=== PATIENT | female | born 1960 | race Caucasian/White ===

== ENCOUNTER 2020-03-10 13:13 | Emergency (ER) | payer OTHER, SELFPAY ==
--- NOTE | 2020-03-10 | XR_ITS ---
EXAMINATION: XR SHOULDER, RIGHT CLINICAL INFORMATION: Fall, trauma, pain COMPARISON: Radiographs right shoulder 03/28/2018 TECHNIQUE: Right shoulder is imaged in 3 views. FINDINGS: There is no acute or healing fracture or dislocation or destructive process. Small calcific tendinosis adjacent to greater tuberosity is again noted, slightly less bulky since 2018. Again, there are degenerative changes acromioclavicular joint with superior spurring from the AC joint and superior lateral spurring from the acromion. The acromioclavicular alignment is normal. There is some mild spurring again noted inferior glenoid likely at origin inferior glenohumeral ligament. No erosive changes. XR/XR shoulder RT min 2V IMPRESSION: 1. No fracture or dislocation. 2. Calcific tendinosis distal superior rotator cuff. 3. Degenerative changes acromioclavicular joint.
--- NOTE | 2020-03-10 | XR_ITS ---
EXAMINATION: XR HAND WRIST, RIGHT CLINICAL INFORMATION: Pain COMPARISON: Radiographs right hand breast 08/10/2018 TECHNIQUE: The right hand and wrist are imaged together in larger [id number] images in 3 views. Navicular view of the wrist is also included for a total of 4 views in this entire exam. FINDINGS: There is no acute or healing fracture, dislocation, destructive process. The ulnar variance is neutral. The carpus shows no focal joint narrowing or erosive change or definite chondrocalcinosis. There is a borderline spur or small exostosis from the lateral distal navicular pole similar to previous exam 2019. The MCP and interphalangeal joints show no interval focal joint narrowing or acute erosive changes. No periarticular demineralization. XR/XR hand wrist RT IMPRESSION: 1. No fracture or dislocation. 2. No acute arthropathy. No interval joint narrowing or erosive change from prior exam 2019.
[2020-03-10 14:50] VITALS: BP 160/54; PULSE 77; RESP 16; TEMP 36.9; O2SAT 99; BMI 36.4
--- NOTE | 2020-03-10 15:44 | XR_ITS ---
EXAMINATION: XR RIBS, RIGHT CLINICAL INFORMATION: Fall, trauma, pain COMPARISON: Chest radiographs 09/14/2016, 12/19/2013 TECHNIQUE: Frontal view chest and 3 views of the right ribs are obtained for a total of 4 views. FINDINGS: There is no visible rib fracture or rib destructive process. There is no pneumothorax or pleural reaction. No airspace consolidation or effusion. The heart is normal in size. The costophrenic sulci are clear. The hilar and mediastinal contours are normal. There are degenerative changes again noted multilevel thoracic spine and bilateral acromioclavicular joints. XR/XR ribs RT min 3V w CXR1V IMPRESSION: Unremarkable examination.
--- NOTE | 2020-03-10 15:44 | XR_ITS ---
EXAMINATION: XR LUMBOSACRAL SPINE CLINICAL INFORMATION: Fall, trauma, pain COMPARISON: CT abdomen 12/01/2018, radiographs lumbar spine 04/14/2016. TECHNIQUE: Three views of the lumbosacral spine. FINDINGS: There is normal lumbar segmentation with 5 nonrib-bearing lumbar vertebrae of normal height and normal lumbar lordosis. There is no vertebral compression or visible fracture, spondylolisthesis, or destructive process. There is no interval focal disc narrowing. Again, multilevel vertebral body spurring is present. There is some old spurring again seen at the left anterior-inferior iliac spine. Surgical clips right upper quadrant abdomen are consistent with the prior cholecystectomy. Bowel gas unremarkable. XR/XR lumbar spine 2-3V IMPRESSION: No acute bony abnormality. No vertebral compression, spondylolisthesis, or visible fracture.
--- NOTE | 2020-03-10 15:44 | CT_ITS ---
EXAMINATION: HEAD CT WITHOUT CONTRAST CLINICAL INFORMATION: Fall COMPARISON: Previous head CT most recent May 2019 TECHNIQUE: Axial images through the brain without contrast. Sagittal and coronal reconstructions on the technologist workstation were performed. Patient dose 704 mg/cm. FINDINGS: There is no evidence of an extra-axial collection. There is no evidence of intra-axial or extra-axial hemorrhage. The ventricles and extra-axial CSF spaces are appropriate. Franco-white matter differentiation is normal. No mass, mass effect or infarct is seen. No skull fracture is seen. Visualized paranasal sinuses, mastoid air cells and middle ears are clear. CT/CT cervical spine wo con IMPRESSION: Unremarkable exam. EXAMINATION: Cervical spine CT without contrast CLINICAL INFORMATION: Fall COMPARISON: None. TECHNIQUE: Axial images through the cervical spine without contrast. Sagittal and coronal reconstructions on the technologist workstation were performed. Patient dose 5 5 6 mg/cm. FINDINGS: Bone alignment is normal. No fracture or dislocation is seen. There is degenerative spondylosis of the mid and lower cervical spine. There are degenerative changes at the C1 dens articulation. Disc spaces are normal. Prevertebral soft tissues are normal. There is diffuse cervical lymphadenopathy. There are calcified and noncalcified thyroid nodules. Largest visualized nodule measures 1.7 x 2.2 cm in the left lobe and is noncalcified. Visualized lung apices are clear. IMPRESSION: Degenerative changes. No fracture seen. Diffuse cervical lymphadenopathy. Bilateral thyroid nodules. Follow-up thyroid ultrasound recommended.
--- NOTE | 2020-03-10 15:52 | ED.FALL ---
HPI - Fall General Chief Complaint: Fall Stated Complaint: FALL Time Seen by Provider: 03/10/20 15:43 Source: patient Mode of arrival: ambulatory History of Present Illness HPI Narrative: 59-year-old female with a past medical history of diabetes, vitamin-D deficiency, presenting to the ED complaining of right shoulder, right wrist, right-sided neck, low back pain s/p mechanical fall off of a chair 2 days ago. Reports chair tipped when she was reaching for things in closet, admits to hitting head, denies LOC, but reports lightheadedness after fall. Denies taking anticoagulation. Denies abdominal pain, nausea/vomiting, numbness/tingling, incontinence, abdominal pain MD complaint: fall Onset (ago): day(s) Related Data Previous Rx's Medication Instructions Recorded cholecalciferol (vitamin D3) 50 50 mcg PO DAILY 30 Days #30 cap 02/08/20 mcg (2,000 unit) capsule blood sugar diagnostic #400 ea 03/07/20 Allergies Allergy/AdvReac Type Severity Reaction Status Date / Time suarez [SUAREZ] Allergy Severe ANAPHYLAXIS Verified 03/10/20 15:16 metoclopramide [From Reglan] Allergy Severe SEIZURE-LIKE Verified 03/10/20 15:16 ACTIVITIES acetaminophen [From PERCOCET] Allergy Mild ITCHING Verified 03/10/20 15:16 oxycodone [From PERCOCET] Allergy Mild ITCHING Verified 03/10/20 15:16 Penicillins Allergy Mild UNKNOWN Verified 03/10/20 15:16 penicillin V Allergy Unknown throat numb Verified 03/10/20 15:16 cherries Allergy Unknown anaphylaxis Uncoded 12/24/19 00:00 Review of Systems Review of Systems: Constitutional: No Weight loss, No Fever, No Chills ENT: +ANG, +Neck pain Cardiovascular: No Chest Pain, No SOB Respiratory: No Cough, No Sputum, No Wheezing Gastrointestinal: No Nausea, No Vomiting, No Diarrhea, No Constipation, No Abdominal pain Genitourinary: No Dysuria, No Urinary Frequency, No Hematuria, No Urinary Incontinence Musculoskeletal: +joint pain, No Myalgias, + Joint Swelling Skin: No Skin Lesions, No rash Neuro: No Weakness, No Numbness, No Paresthesias Yes all other systems are reviewed and are negative PMFSH Past Medical History Attestation statement: The following information was validated with the patient. Medical History (Updated 03/10/20 @ 17:13 by JOBY Gee) Diabetes type 2, uncontrolled Vitamin D deficiency Social History Social History Smoking Status: Never smoker Use of substances other than those prescribed or required for medical reasons: No Advance Directives: No Advance Directives Information Provided: No Physical Exam Vital Signs: Vital Signs: Last Vital Signs Temp 98.4 F 03/10/20 14:50 Pulse 74 03/10/20 16:06 Resp 16 03/10/20 16:06 BP 157/58 H 03/10/20 16:06 Pulse Ox 98 03/10/20 16:06 Body Mass Index 36.4 Const: General: cooperative and healthy appearing Orientation/consciousness: patient oriented x3 Limitations: no limitations HENMT: Head: Yes normal to inspection Ears: hearing grossly normal bilaterally General nose exam: Normal external nose present Face and sinus: Yes normal facial exam Mouth: Normal oral and palatal mucosa present Throat: Yes posterior oropharynx normal and Yes uvula midline Eyes: General: appearance normal, both eyes and all related structures Periorbital: periorbital findings normal Pupils: Equal, round and reactive pupils present EOM: EOMs intact bilaterally Neck: Other: + lower midline cervical spinous tenderness and right-sided paraspinal tenderness. No step-off or deformity noted Neck: Yes normal visual inspection and Yes no meningeal signs Chest: Other: + right-sided anterior lateral lower rib tenderness, no deformity or crepitus Chest palpation & inspection: normal inspection of the chest Resp: Effort & Inspection: normal respiratory effort Auscultation: clear to auscultation bilaterally Cardio: Rate: regular rate GI: Inspection: Yes normal to inspection Palpation (GI): Soft to palpation, nontender, no guarding and not rigid Back/Spine/Pelvis: Other: No midline thoracic/lumbar spinous tenderness. + right-sided thoracolumbar paraspinal tenderness Skin: Rashes: no rashes Wounds: no wounds Neuro: Other: No saddle anesthesia, ambulating with steady gait General: patient oriented x3 and no meningeal signs Cranial nerves: Yes Equal, round and reactive pupils present Gait exam (Neuro): Normal gait present Extrem: Other: + right shoulder tenderness and decreased range of motion due to pain. +ttp over deltoid and trapezius muscles Right wrist with tenderness greater in radial aspect, + snuffbox tenderness. NV intact General: Yes normal to inspection Course Course Course Narrative: -hand/wrist x-ray without acute finding > patient placed in thumb spica to follow-up with orthopedics due to snuffbox tenderness -shoulder x-ray without acute fracture. Tendinitis of the superior rotator cuff -lumbar x-ray and rib series without acute abnormality -1716--CT unremarkable, cervical spine CT with degenerative changes, no fracture. Diffuse cervical lymphadenopathy, bilateral thyroid nodules > findings discussed with patient Worrisome signs and symptoms and strict return precautions discussed with patient including follow-up with PCP. She verbalized understanding feel safe for discharge home MDM - Fall MDM Narrative Medical decision making narrative: On exam VSS, NAD/well-appearing, exam as above. Concern for fracture/MSK pain vs ICH/Subdural Plan: Head/C-spine CT, x-rays Discharge Plan Discharge Clinical Impression: Tendinitis of left rotator cuff, Thyroid nodule, Acute wrist pain, Fall Patient Disposition: Home, Self-Care Instructions: Fall Prevention (ED) Prescriptions: No Action cholecalciferol (vitamin D3) 50 mcg (2,000 unit) capsule 50 mcg PO DAILY 30 Days Qty: 30 RF: 4 (DME) FreeStyle Lite Strips Strip See Rx Instructions .ROUTE .MEDSUPPLY Qty: 400 RF: 2
[2020-03-10 16:06] VITALS: BP 157/58; PULSE 74; RESP 16; O2SAT 98
--- NOTE | 2020-03-10 16:50 | PC.NURSE ---
THUMB SPIKA SPLINT APPLIED
[2020-03-10] MEDS: Lidocaine 4 % Patch ADH..PATCH 1 PATCH TRANSDERMA (17:12)
[2020-03-10] MEDS: Cyclobenzaprine HCl 5 MG TABLET PO (17:12)
== END 2020-03-10 17:40 | disposition home or self-care (01) ==
PROVIDERS: Emergency Provider Emergency Medicine
DX: M77.8 Other enthesopathies, not elsewhere classified (principal); M25.512 Pain in left shoulder; M25.532 Pain in left wrist; M25.531 Pain in right wrist; M54.5 Low back pain; Z79.899 Other long term (current) drug therapy
CPT/HCPCS: 70450; 71101; 72100; 72125; 73030; 73110; 73130; 99284

== ENCOUNTER → 2020-03-11 12:43 | Outpatient (BNV) | payer OTHER, SELFPAY | PROVIDERS: Visit Provider Internal Medicine Medical Oncology | DX: C64.1 Malignant neoplasm of right kidney, except renal pelvis (principal); Z85.038 Personal history of other malignant neoplasm of large intestine | CPT/HCPCS: 99213; 99214 ==

== ENCOUNTER → 2020-03-25 13:19 | Outpatient (BNVA) | payer OTHER, SELFPAY | PROVIDERS: PCP Internal Medicine; Visit Provider Internal Medicine Endocrinology, Diabetes & Metabolism | DX: E11.65 Type 2 diabetes mellitus with hyperglycemia (principal); E11.21 Type 2 diabetes mellitus with diabetic nephropathy; Z79.4 Long term (current) use of insulin; I10 Essential (primary) hypertension; E55.9 Vitamin D deficiency, unspecified; E04.2 Nontoxic multinodular goiter; E78.5 Hyperlipidemia, unspecified; Z79.899 Other long term (current) drug therapy | CPT/HCPCS: 82947; 99212 ==

== ENCOUNTER 2020-03-26 11:39 | Outpatient (REF) | payer OTHER, SELFPAY ==
--- NOTE | 2020-03-26 11:41 | US_ITS ---
EXAMINATION: US THYROID CLINICAL INFORMATION: Follow-up thyroid nodule seen on cervical spine CT COMPARISON: Cervical spine CT 03/10/2020 TECHNIQUE: Linear transducer crowe-scale and color Doppler examination with attention to the region of the thyroid. FINDINGS: SIZE: Measurements of the thyroid lobes and nodules are given in sagittal, anteroposterior and transverse dimensions respectively. Right Thyroid Lobe: 5.2 x 2.1 x 2.1 cm, volume 12.0 mL. Parenchyma: The gland echotexture is heterogeneous. Thyroid vascularity is normal. Left Thyroid Lobe: 4.2 x 2.7 x 2.4 cm, volume 14.2 mL. Parenchyma: The gland echotexture is heterogeneous. Thyroid vascularity is normal. Isthmus: 0.7 cm in maximum AP dimension. RIGHT THYROID LOBE: There are 4 nodules seen. 1. Location: Upper pole. Size: 1.1 x 1.1 x 0.9 cm. Nodule characteristics: Isoechoic, smooth margin hypoechoic rind, no calcification and positive flow. 2. Location: Mid pole. Size: 1.2 x 0.9 x 0.9 cm. Nodule characteristics: Isoechoic, smooth margins with hypoechoic rind, no calcification and positive intranodular flow 3. Location: Lower pole. Size: 0.7 x 0.6 x 0.7 cm. Nodule characteristics: Hyperechoic, smooth margin, no calcification and positive intranodular flow 4. Location: Lower pole. Size: 0.9 x 0.8 x 0.9 cm. Nodule characteristics: Heterogeneous, smooth margin, calcification and no intranodular flow ISTHMUS: No nodules. LEFT THYROID LOBE: There are 4 nodules seen. 1. Location: Upper pole. Size: 1.9 x 1.4 x 1.6 cm. Nodule characteristics: Isoechoic, smooth margins with hypoechoic rind, no calcification and positive intranodular flow 2. Location: Mid pole. Size: 1.4 x 1.1 x 1.2 cm. Nodule characteristics: Heterogeneous, partially solid and partially cystic, smooth margin, no calcification and positive intranodular flow 3. Location: Mid pole. Size: 1.6 x 1.2 x 1.5 cm. Nodule characteristics: Isoechoic with small cystic component, smooth margin, no calcification and positive intranodular flow 4. Location: Lower pole. Size: 1.7 x 1.3 x 1.5 cm. Nodule characteristics: Isoechoic to hypoechoic and slightly heterogeneous, smooth margin with hypoechoic rind, no calcification and positive intranodular flow NODES: No lymphadenopathy is seen in the tissue surrounding the thyroid gland. US/US thyroid IMPRESSION: Enlarged thyroid gland with multiple bilateral nodules. Many nodules meet ultrasound criteria for needle aspiration. Fine-needle aspiration of the largest nodule in the inferior left lobe and calcified nodule in the inferior right lobe. Ultrasound follow-up should be considered.
[2020-03-26 14:10] LABS: Cholesterol 217 mg/dL; HDL Cholesterol 40 mg/dL; LDL Cholesterol Calculated 147 mg/dl; Triglycerides 150 mg/dL
[2020-03-26 14:33] LABS: Free T4 (Free Thyroxine) 1.01 ng/dL (0.71-1.85); Thyroid Stimulating Hormone 2.65 uIU/mL (0.32-4.0); Vitamin D 25-OH Total 38.4 ng/mL (>30)
[2020-03-26 15:03] LABS: Vitamin B12 371 pg/mL (200-900)
[2020-03-27 12:01] LABS: LDL Cholesterol Direct 158 mg/dL (<100)
[2020-03-28 13:41] LABS: Thyroglobulin Antibodies 1 IU/mL (< or = 1); Thyroid Peroxidase Antibodies 277 IU/mL (<9)
== END 2020-03-26 11:40 | disposition home or self-care (01) ==
LOC: HO.US 11:39
PROVIDERS: Internal Medicine Endocrinology, Diabetes & Metabolism; Visit Provider Internal Medicine Medical Oncology
DX: E04.1 Nontoxic single thyroid nodule (principal); E04.2 Nontoxic multinodular goiter; E11.65 Type 2 diabetes mellitus with hyperglycemia
CPT/HCPCS: 36415; 76536; 80061; 82306; 82607; 83721; 84439; 84443; 86376; 86800

== ENCOUNTER 2020-04-07 14:44 | Outpatient (REF) | payer OTHER, SELFPAY ==
--- NOTE | 2020-04-07 14:45 | XR_ITS ---
EXAMINATION: XR HAND, RIGHT CLINICAL INFORMATION: Pain COMPARISON: Previous exam March 2020 TECHNIQUE: Four views of the right hand. FINDINGS: Bone alignment is normal. No fracture or dislocation is seen. There are small osteophyte on the lateral scaphoid and trapezium bones. There may be mild degenerative changes at the intercarpal and radiocarpal joints. Soft tissues are unremarkable. XR/XR hand RT min 3V IMPRESSION: Small osteophytes at the radial side of the scaphoid and trapezium bones and question mild arthritis.
== END 2020-04-07 14:45 | disposition home or self-care (01) ==
LOC: HO.HOSX 14:44
PROVIDERS: PCP Internal Medicine; Visit Provider Physician Assistant
DX: M79.641 Pain in right hand (principal)
CPT/HCPCS: 73130; 99202

== ENCOUNTER 2020-04-15 11:23 | Outpatient (REF) | payer OTHER, SELFPAY | END 2020-04-15 11:24 | disposition home or self-care (01) | LOC: HO.LAB 11:23 | PROVIDERS: Visit Provider Internal Medicine | DX: Z20.828 Contact with and (suspected) exposure to other viral communicable diseases (principal) | CPT/HCPCS: C9803; U0003 ==

== ENCOUNTER → 2020-05-15 08:27 | Outpatient (BNVA) | payer OTHER, SELFPAY | PROVIDERS: PCP Internal Medicine; Visit Provider Internal Medicine Endocrinology, Diabetes & Metabolism | DX: Z13.89 Encounter for screening for other disorder (principal) | CPT/HCPCS: Q3014 ==

== ENCOUNTER → 2020-05-19 13:28 | Outpatient (BNVA) | payer OTHER, SELFPAY | PROVIDERS: Visit Provider Physician Assistant | DX: M19.011 Primary osteoarthritis, right shoulder (principal) | CPT/HCPCS: 20610; 99212; J1020 ==

== ENCOUNTER → 2020-06-11 12:26 | Outpatient (REF) | payer OTHER, SELFPAY ==
--- NOTE | 2020-06-11 | ECG_ITS ---
Test Reason : HTN, DM Blood Pressure : / mmHG Vent. Rate : 077 BPM Atrial Rate : 077 BPM P-R Int : 150 ms QRS Dur : 078 ms QT Int : 386 ms P-R-T Axes : 058 053 054 degrees QTc Int : 436 ms Normal sinus rhythm Normal ECG When compared with ECG of 04-MAY-2019 21:45, Questionable change in QRS axis Referred By: Naz Villavicencio Electronically Signed By:PRIYA MOROCHO MD
== END ==
LOC: HO.CARD 12:26
PROVIDERS: Absent Provider Internal Medicine; PCP Internal Medicine; Visit Provider Physician Assistant
DX: M77.8 Other enthesopathies, not elsewhere classified (principal); R07.89 Other chest pain; E11.65 Type 2 diabetes mellitus with hyperglycemia; E11.21 Type 2 diabetes mellitus with diabetic nephropathy; I10 Essential (primary) hypertension; E78.5 Hyperlipidemia, unspecified; E04.2 Nontoxic multinodular goiter; E55.9 Vitamin D deficiency, unspecified; Z91.010 Allergy to peanuts; Z88.8 Allergy status to other drugs, medicaments and biological substances; Z91.018 Allergy to other foods; Z79.4 Long term (current) use of insulin; Z79.899 Other long term (current) drug therapy
CPT/HCPCS: 93005; 93226; 99212

== ENCOUNTER 2020-06-12 07:25 | Outpatient (REF) | payer OTHER, SELFPAY ==
--- NOTE | 2020-06-12 08:54 | P.BOP_ITS ---
Brief Operative Note Date of Service: 06/12/20 Pre-op diagnosis: NON TOXIC MULTINODULAR GOITER Post-op diagnosis: same Procedure: This procedure was explained to the patient. Alternatives, risks and benefits were discussed. Written consent was obtained. After sterile preparation of the skin, fine-needle aspiration biopsy of left upper pole thyroid nodule, size 1.9 x 1.4 x 1.6 cm was performed under direct ultrasound guidance to confirm accurate needle placement. Three passes were performed with 27 gauge needles. Sample was submitted to cytology, initial cytology reading was adequate. Two passes were dedicated for [employer] genomic sequencing vice president quality assurance test. Second fine-needle aspiration biopsy of left lower pole thyroid nodule, size 1.7 x 1.3 x 1.5 cm was performed under direct ultrasound guidance to confirm accurate needle placement. Three passes were performed with 27 gauge needles. Sample was submitted to cytology, initial cytology reading was adequate. Two passes were dedicated for [employer] genomic sequencing vice president quality assurance test. Patient tolerated procedure well. Aftercare instructions were provided. Impression: uncomplicated fine-needle aspiration biopsy of left upper and lower pole thyroid nodules under direct ultrasound guidance. Surgeon: Yolanda Cross MD Anesthesia: local (Lidocaine 1 % 2 ml) Estimated blood loss (mL): 0 Condition: stable Disposition: same day
[2020-06-12] MEDS: Lidocaine HCl 1 % MPF 5 ML VIAL SUBCUT (11:29)
== END 2020-06-12 07:26 | disposition home or self-care (01) ==
LOC: HO.US 07:25
PROVIDERS: Visit Provider Internal Medicine Endocrinology, Diabetes & Metabolism
DX: E04.2 Nontoxic multinodular goiter (principal)
CPT/HCPCS: 10005; 10006; 88172; 88173; 88177

== ENCOUNTER → 2020-06-25 08:18 | Outpatient (BNVA) | payer OTHER, SELFPAY | PROVIDERS: PCP Internal Medicine; Visit Provider Internal Medicine Endocrinology, Diabetes & Metabolism | CPT/HCPCS: Q3014 ==

== ENCOUNTER → 2020-06-30 12:43 | Outpatient (BNVA) | payer OTHER, SELFPAY | PROVIDERS: PCP Internal Medicine; Visit Provider Internal Medicine Endocrinology, Diabetes & Metabolism | DX: E11.65 Type 2 diabetes mellitus with hyperglycemia (principal); E11.21 Type 2 diabetes mellitus with diabetic nephropathy; Z79.4 Long term (current) use of insulin; E55.9 Vitamin D deficiency, unspecified; E78.5 Hyperlipidemia, unspecified; E06.3 Autoimmune thyroiditis; E04.2 Nontoxic multinodular goiter; I10 Essential (primary) hypertension | CPT/HCPCS: 82947; 99212 ==

== ENCOUNTER → 2020-07-15 10:14 | Outpatient (BNVA) | payer OTHER, SELFPAY | PROVIDERS: PCP Internal Medicine; Referring Provider Internal Medicine; Visit Provider Internal Medicine Gastroenterology | DX: Z13.89 Encounter for screening for other disorder (principal) | CPT/HCPCS: Q3014 ==

== ENCOUNTER → 2020-07-21 10:38 | Outpatient (BNVA) | payer OTHER, SELFPAY | PROVIDERS: PCP Internal Medicine; Visit Provider Internal Medicine Endocrinology, Diabetes & Metabolism | DX: Z13.89 Encounter for screening for other disorder (principal) | CPT/HCPCS: Q3014 ==

== ENCOUNTER → 2020-07-22 12:41 | Outpatient (REF) | payer OTHER, SELFPAY ==
--- NOTE | 2020-07-22 12:45 | CA_ITS ---
Transthoracic Echocardiogram Patient (Last, First, Middle): Claudia Gordon M Gender: Female Date of : 1960 Age: 59 Procedure Date: 07/22/2020 Procedure Type: Transthoracic Echocardiogram Location: OP Height: 154.94 cm Weight: 87.54 kg BSA: 1.86 m2 Heart Rate: bpm BP: 128 / 70 mmHg Shipping Manager: Referring MD: Norma Weber MD Symptoms: CP Study Quality: Fair ECG Rhythm: Sinus Conclusions: - The left ventricular systolic function is normal. The visually estimated ejection fraction is between 65-70%. - There is mildly increased left ventricular wall thickness. - No obvious valvular pathology seen on this study. Findings Left Ventricle Normal left ventricular cavity size. There is mildly increased left ventricular wall thickness. The left ventricular systolic function is normal. The visually estimated ejection fraction is between 65-70%. There is no evidence of regional wall motion abnormalities. E/E prime ratio is between 8 and 15 consistent with indeterminate filling pressures. Evidence suggests grade I (mild) diastolic dysfunction. Right Ventricle Normal right ventricular cavity size and systolic function. Atria Both atria are normal in size. Aortic Valve There is a normal trileaflet aortic valve. There is no aortic valve stenosis. There is no aortic valve regurgitation. Mitral Valve There is mild mitral annular calcification. There is trace mitral valve regurgitation. There is no mitral valve stenosis. Pulmonic Valve The pulmonic valve was not well visualized. Tricuspid Valve Normal tricuspid valve structure. There is trace tricuspid valve regurgitation. The pulmonary artery systolic pressure is normal. Great Vessels The aortic annulus, sinuses of valsalva, and asc aorta are normal in size. Venous The inferior vena cava is normal in size and collapses greater than 50% with inspiration. Pericardium/Pleural There is no evidence of pericardial effusion. Prior Study Comparison No significant change compared to prior study dated: 12/23/2015. Recommendations, Care & Conclusions No obvious valvular pathology seen on this study. Measurements 2D Linear Measurements IVSd: 1.23 0.6-0.9/0.6-1.0 cm LVIDd: 4.08 3.9-5.3/4.2-5.9 cm LVIDd Index: 2.19 2.4-3.2/2.2-3.1 cm/m2 LVIDs: 2.75 2.0-3.6 cm LVPWd: 1.21 0.7-1.1 cm Ao Root: 2.50 2.1-3.5 cm LA Diam: 4.00 2.7-3.8/3.0-4.0 cm LAIDs Index: 2.15 1.5-2.3 cm/m2 LV Mass: 217.62 67-162/88-224 g LV Mass Index: 117.00 43-95/49-115 g/m2 LVOT Diam: 2.00 3.0+(-)1.3 cm Mitral Valve MV Pk E: 0.65 MV PK A: 1.12 MV Decel Time: 246.00 E/A: 0.60 E'Lateral: 5.61 E'Medial: 5.22 E/E' Med: 12.40 E/E' Lat: 11.50 PHT: 72.00 MVA PHT: 3.06 Decel [place]: 2.62 Aortic Valve AoV Pk Sorin: 1.74 AoV Mn Sorin: 1.19 AoV VTI: 0.41 AoV Pk Grad: 12.00 Aov Mn Grad: 7.00 BARBI Cont.VTI: 2.01 LVOT LVOT Pk Sorin: 1.00 LVOT Mn Sorin: 0.76 LVOT VTI: 0.26 LVOT Pk Grad: 4.00 LVOT Mn Grad: 3.00 LVOT Diam: 2.00 LVOT Area: 3.14 Diastolic Function MV Pk E: 0.65 MV Pk A: 1.12 E/A: 0.60 E'Medial: 5.22 E/E' Med: 12.40 E' Laterial: 5.61 E/E' Lat: 11.50 Tricuspid Valve TR Pk Sorin: 2.14 TR Pk Grad: 18.00 RA Press: 3.00 RVSP: 21.00 Great Vessels Aorta Ao Root-2D: 2.50 2.0-3.7 cm Ao Asc: 3.00 2.1-3.4 cm Pulmonary Valve PV Pk Sorin: 1.17 Peak PV Grad: 5.00 Updated in Other Vendor System with Status of Final Oscar Garrett MD electronically signed on 07/23/2020 12:07:56 PM with status of Final
== END ==
LOC: HO.CARD 12:41
PROVIDERS: PCP Internal Medicine; Visit Provider Internal Medicine
DX: R07.89 Other chest pain (principal)
CPT/HCPCS: 93306

== ENCOUNTER → 2020-09-12 12:58 | Outpatient (BNVA) | payer OTHER, SELFPAY | PROVIDERS: PCP Internal Medicine; Visit Provider Internal Medicine Endocrinology, Diabetes & Metabolism | DX: E11.65 Type 2 diabetes mellitus with hyperglycemia (principal); E11.21 Type 2 diabetes mellitus with diabetic nephropathy; Z79.4 Long term (current) use of insulin; I10 Essential (primary) hypertension; E55.9 Vitamin D deficiency, unspecified; E04.2 Nontoxic multinodular goiter; E78.5 Hyperlipidemia, unspecified; E06.3 Autoimmune thyroiditis; Z91.19 Patient's noncompliance with other medical treatment and regimen | CPT/HCPCS: 82947; 99212 ==

== ENCOUNTER → 2020-09-26 09:57 | Outpatient (BNVA) | payer OTHER, SELFPAY | PROVIDERS: PCP Family Medicine; Visit Provider Nurse Practitioner Gerontology | DX: E11.65 Type 2 diabetes mellitus with hyperglycemia (principal); E11.21 Type 2 diabetes mellitus with diabetic nephropathy; I10 Essential (primary) hypertension; E78.5 Hyperlipidemia, unspecified; Z91.19 Patient's noncompliance with other medical treatment and regimen; Z79.4 Long term (current) use of insulin | CPT/HCPCS: 82947; 99212 ==

== ENCOUNTER 2020-10-08 11:24 | Outpatient (REF) | payer OTHER, SELFPAY ==
--- NOTE | ~2020-10-08 | MM_ITS ---
EXAMINATION: MM SCREENING DIGITAL BREAST TOMOSYNTHESIS, BILATERAL CLINICAL INFORMATION: Screening. Asymptomatic. The lifetime risk of breast cancer based on the Tyrer-Cuzick Model is 4.4%. COMPARISON: Mammography: March 03, 2018 and studies dating back to July 11, 2015 TECHNIQUE: Digital breast tomosynthesis is performed in both the craniocaudal and mediolateral oblique views along with computer-aided detection (CAD). Synthesized 2D images are generated from the tomosynthesis. FINDINGS: The breasts are almost entirely fatty (ACR BI-RADS breast composition Category a). There are no significant masses, abnormal calcifications, or other abnormalities. MM/MM tomosynthesis screening BI IMPRESSION: There are no significant changes from prior study. ASSESSMENT: BI-RADS 1: Negative RECOMMENDATION: Routine annual mammography screening. This patient's information was entered into a reminder system with a target due date for their next mammogram.
== END 2020-10-08 11:25 | disposition home or self-care (01) ==
LOC: HO.MAMMO 11:24
PROVIDERS: PCP Family Medicine; Visit Provider Family Medicine
DX: Z12.31 Encounter for screening mammogram for malignant neoplasm of breast (principal)
CPT/HCPCS: 77063; 77067

== ENCOUNTER → 2020-10-13 09:36 | Outpatient (BNVA) | payer OTHER, SELFPAY | PROVIDERS: PCP Family Medicine; Visit Provider Internal Medicine Gastroenterology | DX: K21.9 Gastro-esophageal reflux disease without esophagitis (principal); K59.09 Other constipation; C18.9 Malignant neoplasm of colon, unspecified; E11.65 Type 2 diabetes mellitus with hyperglycemia | CPT/HCPCS: Q3014 ==

== ENCOUNTER 2020-10-30 09:48 | Outpatient (REF) | payer OTHER, SELFPAY ==
--- NOTE | ~2020-10-30 | XR_ITS ---
EXAMINATION: XR WRIST, RIGHT XR SHOULDER, RIGHT CLINICAL INFORMATION: Pain. COMPARISON: 04/07/2020 TECHNIQUE: Two-view right shoulder. 3 view right wrist. FINDINGS: 2 views of the right shoulder demonstrate degenerative change with spurring about the glenohumeral joint inferiorly. There is degenerative narrowing with spurring seen involving the acromioclavicular joint as well as having acromial spur present. No widening of the coracoclavicular space is evident. There are some subchondral cysts seen about the femoral head as well as the superior glenoid. No acute fracture or dislocation is evident. No acute fracture or dislocation of the right wrist is identified. There is some degenerative spurring about the navicular-trapezium joint laterally. There is also some degenerative spurring seen at the 1st carpometacarpal joint. No significant change is appreciated compared to study of 04/07/2020. XR/XR shoulder RT min 2V IMPRESSION: Degenerative change of the right shoulder without evidence of acute fracture, dislocation, or calcific tendinitis. Stable degenerative change of the right wrist.
--- NOTE | ~2020-10-30 | XR_ITS ---
EXAMINATION: XR WRIST, RIGHT XR SHOULDER, RIGHT CLINICAL INFORMATION: Pain. COMPARISON: 04/07/2020 TECHNIQUE: Two-view right shoulder. 3 view right wrist. FINDINGS: 2 views of the right shoulder demonstrate degenerative change with spurring about the glenohumeral joint inferiorly. There is degenerative narrowing with spurring seen involving the acromioclavicular joint as well as having acromial spur present. No widening of the coracoclavicular space is evident. There are some subchondral cysts seen about the femoral head as well as the superior glenoid. No acute fracture or dislocation is evident. No acute fracture or dislocation of the right wrist is identified. There is some degenerative spurring about the navicular-trapezium joint laterally. There is also some degenerative spurring seen at the 1st carpometacarpal joint. No significant change is appreciated compared to study of 04/07/2020. XR/XR wrist RT 2V IMPRESSION: Degenerative change of the right shoulder without evidence of acute fracture, dislocation, or calcific tendinitis. Stable degenerative change of the right wrist.
[2020-10-30 11:12] LABS: Cholesterol 168 mg/dL; HDL Cholesterol 36 mg/dL; LDL Cholesterol Calculated 101 mg/dl; Triglycerides 158 mg/dL
[2020-10-30 11:19] LABS: Blood Urea Nitrogen 16 mg/dL (9-16); Estimated Glomerular Filt Rate > 60
[2020-10-31 05:51] LABS: LDL Cholesterol Direct 108 mg/dL (<100)
== END 2020-10-30 09:49 | disposition home or self-care (01) ==
LOC: HO.LAB 09:48
PROVIDERS: Internal Medicine Endocrinology, Diabetes & Metabolism; Absent Provider Family Medicine; PCP Family Medicine; Visit Provider Radiology Diagnostic Radiology
DX: S49.91XA Unspecified injury of right shoulder and upper arm, initial encounter (principal); S69.91XA Unspecified injury of right wrist, hand and finger(s), initial encounter; E78.5 Hyperlipidemia, unspecified
CPT/HCPCS: 36415; 73030; 73100; 80061; 82565; 83721; 84520

== ENCOUNTER 2020-11-08 16:45 | Emergency (ER) | payer OTHER, SELFPAY ==
--- NOTE | ~2020-11-08 | CT_ITS ---
EXAMINATION: CT ABDOMEN AND PELVIS WITHOUT CONTRAST CLINICAL INFORMATION: Right-sided abdominal pain. Status post fall. History of colon cancer. COMPARISON: CT of the abdomen and pelvis done on 12/01/2018. TECHNIQUE: Multidetector volumetric imaging was performed from the superior aspect of the liver through the pubic symphysis. Sagittal and coronal reformatted images were obtained on the technologist's workstation. This CT examination was performed using dose optimization techniques as appropriate, variously including the following: *Automated exposure control *Adjustment of mA and/or kV according to patient size (this includes techniques or standardized protocols for targeted exams where dose is matched to indication/reason for exam; i.e. extremities or head) *Use of iterative reconstruction technique DLP: 703.1 mGy-cm FINDINGS: LUNG BASES: The visualized lung bases are unremarkable. LIVER, GALLBLADDER, AND BILIARY TREE: The liver is normal in size, and shape. Diffuse hypodensity consistent with hepatic steatosis is seen. No focal hepatic lesion or biliary ductal dilatation is present. The gallbladder is surgically absent. PANCREAS: Unremarkable. SPLEEN: Unremarkable. ADRENAL GLANDS: Stable 1 cm left adrenal nodule with Hounsfield value of 11, unchanged. Right adrenal gland is unremarkable. KIDNEYS AND URETERS: The kidneys are normal in size, shape, and attenuation. No hydronephrosis, hydroureter, or calculi seen. No perinephric stranding. Previously documented approximately 1 cm exophytic hypodense lesion involving the inferior pole of the right kidney is reidentified, appears solid with Hounsfield value of 28 and measures approximately 1.6 cm. BLADDER: Unremarkable. GASTROINTESTINAL TRACT: Postsurgical changes of colonic resection is noted within the left-sided colon, unchanged. The residual colon is unremarkable. Appendix is visualized and is unremarkable the small bowel loops are decompressed. Small sliding hiatal hernia is noted. ABDOMINAL WALL: No significant hernia is appreciated. LYMPH NODES: Normal. VASCULAR: Mild diffuse atherosclerotic disease of the aorta without aneurysm formation. PELVIC VISCERA: There is no pelvic mass present. No evidence of any free fluid and/or free air present. OSSEOUS STRUCTURES: Unremarkable. CT/CT abdomen pelvis wo con IMPRESSION: 1. No CT evidence of any acute intra-abdominal and/or intrapelvic pathology is present. 2. Diffuse hepatic steatosis. 3. Exophytic 1.6 cm hypodense lesion at the inferior pole of the right kidney appears solid on the current study. Follow-up nonemergent renal ultrasound is recommended for further clarification. 4. Stable 1 cm left adrenal nodule. 5. Postsurgical changes within the left hemicolon without any CT evidence of bowel obstruction or significant change since prior study. Surgically absent gallbladder and nondilated biliary tree.
[2020-11-08 16:58] VITALS: BP 155/61; PULSE 80; RESP 16; TEMP 37.3; O2SAT 97; BMI 37.7
[2020-11-08 17:48] LABS: Glucose Urine UA >=1000 MG/DL (NEG); Leukocyte Esterase Urine NEG (NEG); Nitrite Urine NEG (NEG); PH 5.5 (5.0-8.0); Urine Blood NEG (NEG); Urine Ketones NEG (NEG); Urine Protein NEG (NEG-TRACE)
[2020-11-08 17:49] LABS: Appearance Urine CLEAR; Color Urine STRAW
[2020-11-08 17:58] LABS: RBC Urine 0 /HPF (0)
[2020-11-08 17:59] LABS: Bacteria Urine TRACE /LPF; Renal Epithelial Cells Urine TRACE /LPF; Squamous Epithelial Cell Urine 1+ /LPF; Uric Acid Crystals Urine TRACE /LPF
--- NOTE | 2020-11-08 19:21 | ED_ITS ---
HPI - Abdominal Pain General Chief Complaint: Abdominal Pain Stated Complaint: mutiple complaints Time Seen by Provider: 11/08/20 19:21 Source: patient Mode of arrival: ambulatory Limitations: no limitations History of Present Illness HPI narrative: Patient history of colon cancer with chronic abdominal pain fell 4 days ago landed on his right side, patient not on any anticoagulants since yesterday patient complaining of pain when she urinated also nauseated and vomited 1 time Related Data Home Medications Medication Instructions Recorded Confirmed albuterol sulfate [Ventolin HFA] 2 puff INHALATION Q4-6H PRN 03/11/20 10/13/20 lorazepam 1 tab PO BID PRN 03/11/20 10/13/20 omeprazole 1 cap PO BID 03/11/20 10/13/20 acetaminophen 300 mg-codeine 30 mg 1 tab PO TID PRN 03/25/20 10/13/20 tablet albuterol sulfate mg INHALATION 03/25/20 10/13/20 diclofenac sodium 1 % topical gel 2 g TOPICAL QID 03/25/20 10/13/20 hydrochlorothiazide 12.5 mg tablet 12.5 mg PO DAILY 03/25/20 10/13/20 lancets 28 gauge #100 ea 03/25/20 10/13/20 lidocaine 5 % topical ointment TOPICAL 03/25/20 10/13/20 lisinopril 40 mg tablet 40 mg PO DAILY 03/25/20 10/13/20 pen needle, diabetic 32 gauge x #50 ea 03/25/20 10/13/20 bupropion HCl 300 mg 24 hr tablet, 300 mg PO tab 05/15/20 10/13/20 extended release glipizide 10 mg tablet 10 mg PO BID 10/13/20 10/13/20 prednisone 20 mg tablet 20 mg PO BID 10/13/20 10/13/20 Previous Rx's Medication Instructions Recorded blood sugar diagnostic #400 ea 03/07/20 cyclobenzaprine 5 mg PO Q8H PRN 5 Days #14 tab 03/10/20 naproxen 500 mg PO BID PRN 10 Days #20 tab 03/10/20 arm brace #1 ea 04/09/20 sennosides 8.6 mg-docusate sodium 1 tab-cap PO BEDTIME PRN 30 Days 07/06/20 50 mg capsule #30 cap psyllium husk 2.6 gram/4.1 gram 1 tbsp PO DAILY 30 Days #480 g 07/15/20 oral powder cholecalciferol (vitamin D3) 50 50 mcg PO DAILY #30 cap 08/11/20 mcg (2,000 unit) capsule pen needle, diabetic 32 gauge x #150 ea 09/12/20 sitagliptin 100 mg tablet 100 mg PO DAILY 30 Days #30 tab 09/12/20 insulin lispro protamine-lispro 30 unit SUBCUT DAILY #15 ml 09/26/20 100 unit/mL (75-25) subcutaneous pen metformin 500 mg tablet 500 mg PO BID #60 tab 09/26/20 esomeprazole magnesium 20 mg 20 mg PO DAILY 90 Days #90 cap 10/06/20 capsule,delayed release rosuvastatin 10 mg tablet 10 mg PO DAILY #30 tab 10/29/20 Allergies Allergy/AdvReac Type Severity Reaction Status Date / Time suarez [SUAREZ] Allergy Severe ANAPHYLAXIS Verified 10/13/20 09:36 cucumber Allergy Severe Shortness Verified 10/13/20 09:37 of Breath metoclopramide [From Reglan] Allergy Severe SEIZURE-LIKE Verified 10/13/20 09:36 ACTIVITIES acetaminophen [From PERCOCET] Allergy Mild ITCHING Verified 10/13/20 09:36 oxycodone [From PERCOCET] Allergy Mild ITCHING Verified 10/13/20 09:36 Penicillins Allergy Mild UNKNOWN Verified 10/13/20 09:36 penicillin V Allergy Unknown throat numb Verified 10/13/20 09:36 cherries Allergy Unknown anaphylaxis Uncoded 12/24/19 00:00 Review of Systems Review of Systems Yes all other systems are reviewed and are negative Physical Exam Vital Signs: Vital Signs: Last Vital Signs Temp 99.1 F 11/08/20 16:58 Pulse 71 11/08/20 20:17 Resp 18 11/08/20 20:17 BP 139/58 L 11/08/20 20:17 Pulse Ox 99 11/08/20 20:17 Body Mass Index 37.7 Appearance: Alert. Oriented X3. No acute distress. Eyes: PERRLA, No Nystagmus ENT: Pharynx normal. Oral Mucosa moist Neck: Normal inspection. Neck supple. CVS: Normal heart rate and rhythm. Pulses normal. Respiratory: No respiratory distress. Equal air entry bilateral, no wheezing/rales/rhonchi Abdomen: Soft Bowel sounds are present, no mass palpable, no CVA tenderness mild tenderness right mid and upper quadrant Skin: Skin warm and dry. Normal skin color. Normal skin turgor. Extremities: No lower extremity edema. No calf tenderness Neuro: Oriented X 3. No motor deficit. No sensory deficit.No cerebellar signs , cranial nerves II-XII intact MDM - Abdominal Pain MDM Narrative Medical decision making narrative: Patient lab stable CT scan negative will dis charge patient home Lab Data Attestation: I reviewed the patient's lab results. Result diagrams: 11/08/20 20:16 11/08/20 20:16 Labs: Lab Results 11/08/20 11/08/20 11/08/20 Range/Units 17:37 20:16 20:16 WBC 9.2 (4.8-10.8) X10*3/uL RBC 4.46 (4.20-5.50) X10*6/uL Hgb 11.9 L (12.0-16.0) g/dl Hct 37.6 (37-47) % MCV 84.3 (80-98) fL MCH 26.7 L (27.0-33.0) pg MCHC 31.6 (31.0-35.0) g/dl RDW 14.5 (11.0-16.0) % Plt Count 209 (160-400) X10*3/uL MPV 11.9 (9.4-12.3) fL Immature Gran % (Auto) 0.5 H (0.0-0.4) % Neut % (Auto) 54.1 (45-73) % Lymph % (Auto) 33.1 (20-40) % [place] % (Auto) 7.9 (2-11) % Eos % (Auto) 4.0 (0-4) % Baso % (Auto) 0.4 (0-2) % Lymph # (Auto) 3.1 (1.2-4.9) X10*3/uL [place] # (Auto) 0.7 (0.1-1.2) X10*3/uL Eos # (Auto) 0.4 (0.0-0.4) X10*3/uL Baso # (Auto) 0.0 (0.0-0.2) X10*3/uL Abs Immat Gran (auto) 0.05 H (0.00-0.03) X10*3/uL Absolute Neuts (auto) 5.0 (2.0-8.3) X10*3/uL Absolute Nucleated RBC 0.000 (0.0-0.012) X10*3/uL Nucleated RBC % (auto) 0.0 (0.0-0.2) /100WBC Sodium 140 (135-145) mmol/L Potassium 3.8 (3.3-5.1) mmol/L Chloride 101 (96-108) mmol/L Carbon Dioxide 29 (22-29) mmol/L Anion Gap 14 (12-20) BUN 15 (9-16) mg/dL Creatinine 0.79 (0.5-1.4) mg/dL Estim Creat Clear Calc 74.5 Estimated GFR > 60 Random Glucose 156 H D (60-115) mg/dL Calcium 9.9 (8.4-10.2) mg/dL Total Bilirubin 0.4 (0.0-1.0) mg/dL Direct Bilirubin 0.2 (0.0-0.5) mg/dL AST 21 D (5-31) U/L ALT 28 (0-31) U/L Alkaline Phosphatase 104 (39-117) U/L Total Protein 6.9 (6.5-8.0) g/dL Albumin 4.1 (3.5-5.0) g/dL Lipase 48 (8-78) U/L Urine Color STRAW Urine Appearance CLEAR Urine pH 5.5 (5.0-8.0) Ur Specific [place] 1.010 (1.005-1.025) Urine Protein NEG (NEG-TRACE) MG/DL Urine Glucose (UA) >=1000 H (NEG) MG/DL Urine Ketones NEG (NEG) MG/DL Urine Blood NEG (NEG) Urine Nitrite NEG (NEG) Ur Leukocyte Esterase NEG (NEG) Urine RBC 0 (0) /HPF Urine WBC 15-29 H (0-4) /HPF Ur Squamous Epith Cells 1+ /LPF Ur Renal Epithelial Cell TRACE /LPF Uric Acid Crystals TRACE /LPF Urine Bacteria TRACE /LPF 11/08/20 Range/Units 20:16 WBC (4.8-10.8) X10*3/uL RBC (4.20-5.50) X10*6/uL Hgb (12.0-16.0) g/dl Hct (37-47) % MCV (80-98) fL MCH (27.0-33.0) pg MCHC (31.0-35.0) g/dl RDW (11.0-16.0) % Plt Count (160-400) X10*3/uL MPV (9.4-12.3) fL Immature Gran % (Auto) (0.0-0.4) % Neut % (Auto) (45-73) % Lymph % (Auto) (20-40) % [place] % (Auto) (2-11) % Eos % (Auto) (0-4) % Baso % (Auto) (0-2) % Lymph # (Auto) (1.2-4.9) X10*3/uL [place] # (Auto) (0.1-1.2) X10*3/uL Eos # (Auto) (0.0-0.4) X10*3/uL Baso # (Auto) (0.0-0.2) X10*3/uL Abs Immat Gran (auto) (0.00-0.03) X10*3/uL Absolute Neuts (auto) (2.0-8.3) X10*3/uL Absolute Nucleated RBC (0.0-0.012) X10*3/uL Nucleated RBC % (auto) (0.0-0.2) /100WBC Sodium (135-145) mmol/L Potassium (3.3-5.1) mmol/L Chloride (96-108) mmol/L Carbon Dioxide (22-29) mmol/L Anion Gap (12-20) BUN (9-16) mg/dL Creatinine (0.5-1.4) mg/dL Estim Creat Clear Calc Estimated GFR Random Glucose (60-115) mg/dL Calcium (8.4-10.2) mg/dL Total Bilirubin (0.0-1.0) mg/dL Direct Bilirubin (0.0-0.5) mg/dL AST (5-31) U/L ALT (0-31) U/L Alkaline Phosphatase (39-117) U/L Total Protein (6.5-8.0) g/dL Albumin (3.5-5.0) g/dL Lipase (8-78) U/L Urine Color STRAW Urine Appearance CLEAR Urine pH 5.5 (5.0-8.0) Ur Specific [place] 1.010 (1.005-1.025) Urine Protein NEG (NEG-TRACE) MG/DL Urine Glucose (UA) NEG (NEG) MG/DL Urine Ketones NEG (NEG) MG/DL Urine Blood NEG (NEG) Urine Nitrite NEG (NEG) Ur Leukocyte Esterase TRACE H (NEG) Urine RBC 0-2 (0) /HPF Urine WBC 1-4 (0-4) /HPF Ur Squamous Epith Cells 1+ /LPF Ur Renal Epithelial Cell /LPF Uric Acid Crystals TRACE /LPF Urine Bacteria TRACE /LPF Discharge Plan Discharge Prescriptions: No Action (DME) FreeStyle Lite Strips Strip See Rx Instructions .ROUTE .MEDSUPPLY Qty: 400 RF: 2 Senna Plus 8.6-50 mg capsule 1 tab-cap PO BEDTIME PRN (Reason: constipation) 30 Days Qty: 30 RF: 3 cholecalciferol (vitamin D3) 50 mcg (2,000 unit) capsule 50 mcg PO DAILY Qty: 30 RF: 5 esomeprazole magnesium [Nexium] 20 mg capsule,delayed release(DR/EC) 20 mg PO DAILY 90 Days Qty: 90 RF: 1 rosuvastatin 10 mg tablet 10 mg PO DAILY Qty: 30 RF: 3 omeprazole 20 mg capsule,delayed release(DR/EC) 1 cap PO BID RF: 0 lorazepam 1 mg tablet 1 tab PO BID PRN (Reason: anxiety) RF: 0 albuterol sulfate [Ventolin HFA] 90 mcg/actuation HFA aerosol inhaler 2 puff inhalation Q4-6H PRN (Reason: Wheezing) RF: 0 cyclobenzaprine 5 mg tablet 5 mg PO Q8H PRN (Reason: pain (scale score 7-10)) 5 Days Qty: 14 RF: 0 naproxen 500 mg tablet 500 mg PO BID PRN (Reason: pain) 10 Days Qty: 20 RF: 0 (DME) Wrist Brace Misc See Rx Instructions .MEDSUPPLY Qty: 1 RF: 0 (DME) pen needle, diabetic [BD Meg 2nd Gen Pen Needle] 32 gauge x 5/32 needle See Rx Instructions .MEDSUPPLY Qty: 150 RF: 11 Januvia 100 mg tablet 100 mg PO DAILY 30 Days Qty: 30 RF: 9 prednisone 20 mg tablet 20 mg PO BID RF: 0 glipizide 10 mg tablet 10 mg PO BID RF: 0 insulin lispro protamin-lispro [Humalog Mix 75-25 KwikPen] 100 unit/mL (75-25) insulin pen 30 unit subcut DAILY Qty: 15 RF: 3 metformin 500 mg tablet 500 mg PO BID Qty: 60 RF: 3 acetaminophen-codeine 300-30 mg tablet 1 tab PO TID PRN (Reason: Pain) RF: 0 diclofenac sodium 1 % gel 2 g topical QID RF: 0 lidocaine 5 % ointment topical RF: 0 lisinopril 40 mg tablet 40 mg PO DAILY RF: 0 hydrochlorothiazide 12.5 mg tablet 12.5 mg PO DAILY RF: 0 albuterol sulfate 2.5 mg /3 mL (0.083 %) solution for nebulization inhalation RF: 0 (DME) lancets 28 gauge misc See Rx Instructions lancet topical QID Qty: 100 RF: 0 (DME) pen needle, diabetic 32 gauge x 5/32 needle See Rx Instructions ea .ROUTE .MEDSUPPLY Qty: 50 RF: 0 bupropion HCl 300 mg tablet extended release 24 hr 300 mg PO RF: 0 psyllium husk 2.6 gram/4.1 gram powder 1 tbsp PO DAILY 30 Days Qty: 480 RF: 3 PMFSH Past Medical History Medical History Cataract Colon cancer (~2010) Current non-adherence to medical treatment Diabetes type 2, uncontrolled Diabetic nephropathy associated with type 2 diabetes mellitus 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 Emanuel's disease 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
[2020-11-08 20:17] VITALS: BP 139/58; PULSE 71; RESP 18; O2SAT 99
[2020-11-08 20:23] LABS: MANUAL DIFF FLAG NO
[2020-11-08 20:25] LABS: Basophils Percent Auto 0.4 % (0-2); Eosinophils Absolute Auto 0.4 X10*3/uL (0.0-0.4); Hematocrit 37.6 % (37-47); Hemoglobin 11.9 g/dl (12.0-16.0); Imm Gran Abs Auto 0.05 X10*3/uL (0.00-0.03); Imm Gran Pct Auto 0.5 % (0.0-0.4); Lymphocytes Absolute Auto 3.1 X10*3/uL (1.2-4.9); Lymphocytes Percent Auto 33.1 % (20-40); Mean Corpuscular HGB Conc 31.6 g/dl (31.0-35.0); Mean Corpuscular Hemoglobin 26.7 pg (27.0-33.0); Mean Corpuscular Volume 84.3 fL (80-98); Mean Platelet Volume 11.9 fL (9.4-12.3); Monocytes Absolute Auto 0.7 X10*3/uL (0.1-1.2); Monocytes Percent Auto 7.9 % (2-11); Neutrophils Percent Auto 54.1 % (45-73); Platelet Count 209 X10*3/uL (160-400); Red Blood Count 4.46 X10*6/uL (4.20-5.50); Red Cell Distribution Width 14.5 % (11.0-16.0); White Blood Count 9.2 X10*3/uL (4.8-10.8)
[2020-11-08 20:31] LABS: Glucose Urine UA NEG (NEG); Leukocyte Esterase Urine TRACE (NEG); Nitrite Urine NEG (NEG); PH 5.5 (5.0-8.0); UACC Culture Trigger YES; Urine Blood NEG (NEG); Urine Ketones NEG (NEG); Urine Protein NEG (NEG-TRACE)
[2020-11-08 20:39] LABS: Appearance Urine CLEAR; Color Urine STRAW
[2020-11-08 20:51] LABS: Alanine Aminotransferase 28 U/L (0-31); Albumin Level 4.1 g/dL (3.5-5.0); Alkaline Phosphatase 104 U/L (39-117); Anion Gap 14 (12-20); Aspartate Amino Transferase 21 U/L (5-31); Bilirubin Direct 0.2 mg/dL (0.0-0.5); Bilirubin Total 0.4 mg/dL (0.0-1.0); Blood Urea Nitrogen 15 mg/dL (9-16); Calcium 9.9 mg/dL (8.4-10.2); Carbon Dioxide 29 mmol/L (22-29); Chloride 101 mmol/L (96-108); Creatinine Clr Calc Pharmacy 74.5; Estimated Glomerular Filt Rate > 60; Glucose Random 156 mg/dL (60-115); Lipase 48 U/L (8-78); Potassium 3.8 mmol/L (3.3-5.1); Sodium 140 mmol/L (135-145); Total Protein 6.9 g/dL (6.5-8.0)
[2020-11-08 20:57] LABS: Bacteria Urine TRACE /LPF; RBC Urine 0-2 /HPF (0); Squamous Epithelial Cell Urine 1+ /LPF; Uric Acid Crystals Urine TRACE /LPF
== END 2020-11-08 21:40 | disposition home or self-care (01) ==
PROVIDERS: Emergency Provider Internal Medicine; PCP Family Medicine
DX: R10.9 Unspecified abdominal pain (principal); Z85.038 Personal history of other malignant neoplasm of large intestine; Z91.81 History of falling
CPT/HCPCS: 36415; 74176; 80048; 80076; 81001; 81003; 83690; 85025; 87086; 99284

== ENCOUNTER 2020-11-12 12:14 | Outpatient (REF) | payer OTHER, SELFPAY ==
--- NOTE | ~2020-11-12 | XR_ITS ---
EXAMINATION: XR LUMBOSACRAL SPINE CLINICAL INFORMATION: Lower back pain. COMPARISON: Lumbar spine radiographs dated 03/10/2020. TECHNIQUE: 3 views of the lumbosacral spine. FINDINGS: The lumbar lordosis is maintained. No acute fracture or subluxation. No loss of vertebral body height. Mild multilevel loss of intervertebral disc height with small anterior endplate osteophytes, unchanged. No lytic or blastic osseous lesion. Atherosclerotic calcifications. Right upper quadrant surgical clips. XR/XR lumbar spine 2-3V IMPRESSION: Mild multilevel degenerative disc disease, unchanged when compared to the prior radiographs.
--- NOTE | ~2020-11-12 | US_ITS ---
EXAMINATION: ULTRASOUND EXTREMITY NONVASCULAR CLINICAL INFORMATION: Mass, lump right upper limb. COMPARISON: None TECHNIQUE: Limited ultrasound imaging of the right lateral arm was performed. FINDINGS: There are 2 hyperechoic lesions deep to subcutaneous soft tissues likely lipomas. They measure 1.2 x 0.8 x 1.4 cm and 0.7 x 0.4 x 0.7 cm. No solid heterogeneous mass or free fluid seen. US/US extremity nonvascular calles IMPRESSION: Likely 2 small slightly hyperechoic lipomas along the right lateral arm.
== END 2020-11-12 12:15 | disposition home or self-care (01) ==
LOC: HO.US 12:14
PROVIDERS: PCP Family Medicine; Visit Provider Family Medicine
DX: R22.31 Localized swelling, mass and lump, right upper limb (principal); M54.5 Low back pain
CPT/HCPCS: 72100; 76882

== ENCOUNTER 2020-11-14 09:50 | Outpatient (REF) | payer OTHER, SELFPAY ==
--- NOTE | ~2020-11-14 | CT_ITS ---
EXAMINATION: CT ABDOMEN AND PELVIS WITH CONTRAST CLINICAL INFORMATION: Abdominal injury. Recent exam indicates right-sided abdominal pain. History of colon cancer. COMPARISON: Previous CT of the abdomen and pelvis most recent 11/08/2020 TECHNIQUE: Multidetector volumetric images were obtained from the superior aspect of the liver through the pubic symphysis following administration 85 mL of Omnipaque 350 intravenous contrast. Sagittal and coronal reformatted images were obtained on the technologist's workstation. Oral contrast: Yes This CT examination was performed using dose optimization techniques as appropriate, variously including the following: *Automated exposure control *Adjustment of mA and/or kV according to patient size (this includes techniques or standardized protocols for targeted exams where dose is matched to indication/reason for exam; i.e. extremities or head) *Use of iterative reconstruction technique DLP: 603 mGy-cm FINDINGS: LUNG BASES: The visualized lung bases are unremarkable. LIVER, GALLBLADDER, AND BILIARY TREE: The liver is low in attenuation suggestive of fatty infiltration. No focal liver lesion is seen. The gallbladder has been removed PANCREAS: Unremarkable. SPLEEN: There is a calcification in the spleen. The spleen is otherwise unremarkable. ADRENAL GLANDS: Stable 1 cm left adrenal nodule. Normal right adrenal gland. KIDNEYS AND URETERS: There is a 1.3 cm low-attenuation lesion exophytic to the lower pole of the right kidney. Hounsfield units measure 70 and appearance is again concerning for a solid renal mass. This is again gradually increasing in size compared to a remote older exams. There are 2 1 cm low-attenuation lesion in the left kidney and 1 cm low-attenuation lesion in the right kidney that are suggestive of cysts. The kidneys are otherwise unremarkable. BLADDER: Unremarkable. GASTROINTESTINAL TRACT: There are postsurgical changes to the left colon. Small and large bowel is otherwise unremarkable. The appendix is unremarkable. ABDOMINAL WALL: There are postsurgical changes to the abdominal wall. No hernia is seen. LYMPH NODES: Normal. VASCULAR: There is evidence of atherosclerotic disease. No aneurysm is seen. PELVIC VISCERA: There is a elongated 1.5 x 5.5 cm left pelvic cyst. This may represent a left adnexal cyst or possibly hydrosalpinx. This is new or increased from older pelvic CT scan December 2016. Uterus appears to have been removed. Right adnexa is unremarkable. OSSEOUS STRUCTURES: There are degenerative changes of the spine and hip joints. CT/CT abdomen pelvis w con IMPRESSION: No evidence of trauma to the abdomen or pelvis. Fatty liver. 1.3 cm low-attenuation lesion to the posterior lower pole of the right kidney worrisome for a renal mass. Bilateral renal cysts. Stable small left adrenal nodule. Postsurgical changes to the left colon. 1.5 x 5.3 cm left pelvic cyst. Differential would include a left adnexal cyst and hydrosalpinx. Follow-up pelvic ultrasound recommended.
[2020-11-14] MEDS: Barium Sulfate Oral (Vanilla) 450 ML ORAL.SUSP 900 ML PO (10:46)
[2020-11-14] MEDS: iohexoL 350 MG/ML 100 ML INFUS..BTL 85 ML IV (10:47)
== END 2020-11-14 09:51 | disposition home or self-care (01) ==
LOC: HO.CT 09:50
PROVIDERS: PCP Family Medicine; Visit Provider Family Medicine
DX: S39.91XA Unspecified injury of abdomen, initial encounter (principal)
CPT/HCPCS: 74177; Q9967

== ENCOUNTER → 2020-12-23 13:35 | Outpatient (BNVA) | payer OTHER, SELFPAY | PROVIDERS: PCP Family Medicine; Referring Provider Family Medicine; Visit Provider Internal Medicine Cardiovascular Disease | DX: R07.2 Precordial pain (principal) | CPT/HCPCS: 99202; Q3014 ==

== ENCOUNTER 2020-12-25 13:53 | Outpatient (REF) | payer OTHER, SELFPAY ==
--- NOTE | ~2020-12-25 | US_ITS ---
EXAMINATION: US PELVIS CLINICAL INFORMATION: Follow-up pelvic cyst COMPARISON: Previous CT of the abdomen and pelvis most recent October 2020 and previous pelvic ultrasound 2014 TECHNIQUE: Ultrasound of the pelvis is performed using both transabdominal and transvaginal transducers along with Doppler. Transvaginal imaging is performed due to inadequate visualization transabdominally. FINDINGS: The uterus has been removed. The ovaries are nonidentified. There is a 4.3 x 2.5 x 2.4 cm cyst in the left lateral pelvis adjacent to the iliac vessels. This is unchanged in size from previous CT October 2020. Origin of the cyst is uncertain by ultrasound but it seems to the adjacent to the left ovary on previous CT scan. This is not seen on older CT scan of the abdomen and pelvis December 2016 or previous pelvic ultrasound October 2014. There is no fluid in the pelvis. US/US pelvic complete IMPRESSION: 4.3 x 2.5 x 2.4 cm lateral left pelvic cyst similar in size to previous CT scan October 2020.
--- NOTE | ~2020-12-25 | US_ITS ---
EXAMINATION: US RETROPERITONEAL LIMITED (RENAL ONLY) CLINICAL INFORMATION: Cyst seen at right kidney. COMPARISON: CT abdomen and pelvis 11/14/2020 KUB 04/07/2018 and 05/08/2013. Ultrasound abdomen complete 12/19/2013. Renal ultrasound 01/24/2012. TECHNIQUE: Real-time imaging of the kidneys. FINDINGS: RIGHT KIDNEY: 11.1 x 5.9 x 5.4 cm (SAG x AP x TRV). The kidney is normal in size, contour, and echogenicity. Renal cortical thickness is normal. There is a 1.4 x 1.2 x 1.4 cm heterogeneous, partially hypoechoic partially hypoechoic lesion exophytic to the lower pole of the right kidney. This again is concerning for a renal mass. No renal calculi or hydronephrosis. LEFT KIDNEY: 11.0 x 5.3 x 4.9 cm (SAG x AP x TRV). The kidney is normal in size, contour, and echogenicity. Renal cortical thickness is normal. There are 2 small simple cysts in the left kidney measuring 1.1 x 0.8 x 1 cm in the upper pole and 1.1 x 1 x 0.9 cm in the lower pole. No renal calculi or hydronephrosis. US/US renal BI IMPRESSION: 1.4 x 1.2 x 1.4 cm heterogeneous solid appearing lesion exophytic to the lower pole right kidney worrisome for a mass. This could be confirmed with dedicated renal CT or MRI with and without contrast. 2 small simple left renal cysts.
== END 2020-12-25 13:54 | disposition home or self-care (01) ==
LOC: HO.US 13:53
PROVIDERS: Absent Provider Family Medicine; PCP Family Medicine; Visit Provider Family Medicine
DX: N28.1 Cyst of kidney, acquired (principal); N28.9 Disorder of kidney and ureter, unspecified; R93.5 Abnormal findings on diagnostic imaging of other abdominal regions, including retroperitoneum
CPT/HCPCS: 76775; 76856

== ENCOUNTER → 2021-01-14 08:28 | Outpatient (REF) | payer OTHER, SELFPAY ==
--- NOTE | 2021-01-14 08:32 | CA_ITS ---
Transthoracic Echocardiogram Patient (Last, First, Middle): Claudia Gordon M Gender: Female Date of : 1960 Age: 60 Procedure Date: 01/14/2021 Procedure Type: Transthoracic Echocardiogram Location: OP Height: 154.94 cm Weight: 87.54 kg BSA: 1.86 m2 Heart Rate: bpm BP: 120 / 68 mmHg Motion Picture Camera Lens Technician: JANELL Referring MD: Arvind Burns MD Symptoms: R07.2 - Precordial pain Study Quality: Fair Conclusions: - 1. Normal LV systolic function with grade 1 diastolic dysfunction 2. Normal cardiac valvular Doppler 3. Normal RV systolic pressure 4. No pericardial effusion Findings Procedure Information The patient declines contrast. Left Ventricle Normal left ventricular size, thickness, and systolic function. The visually estimated ejection fraction is between 60-65%. Spectral Doppler is indicative of an impaired relaxation filling pattern. E/E prime ratio is <8, consistent with normal filling pressures. Evidence suggests grade I (mild) diastolic dysfunction. Right Ventricle Normal right ventricular cavity size and systolic function. Atria Both atria are normal in size. There is lipomatous hypertrophy of the interatrial septum. Interatrial shunt cannot be excluded. Aortic Valve The aortic valve structure and function is likely normal. There is no aortic valve stenosis. There is no aortic valve regurgitation. Mitral Valve Likely normal mitral valve structure and function. There is trace mitral valve regurgitation. There is no mitral valve stenosis. Pulmonic Valve The pulmonic valve was not well visualized. Tricuspid Valve Likely normal tricuspid valve structure and function. There is trace tricuspid valve regurgitation. The right ventricular systolic pressure is normal. The right ventricular systolic pressure is 20 mmHg. Normal right atrial pressure. There is no evidence of pulmonary hypertension. Great Vessels All visible segments of the aorta are normal in size. The pulmonary artery was not well visualized. Venous The inferior vena cava is normal in size and collapses greater than 50% with inspiration. Pericardium/Pleural There is no evidence of pericardial effusion. Prior Study Comparison No significant change compared to prior study dated: 07/22/2020. Measurements 2D Linear Measurements IVSd: 0.96 0.6-0.9/0.6-1.0 cm LVIDd: 3.65 3.9-5.3/4.2-5.9 cm LVIDd Index: 1.96 2.4-3.2/2.2-3.1 cm/m2 LVIDs: 2.43 2.0-3.6 cm LVPWd: 0.91 0.7-1.1 cm Ao Root: 2.90 2.1-3.5 cm LA Diam: 3.50 2.7-3.8/3.0-4.0 cm LAIDs Index: 1.88 1.5-2.3 cm/m2 LV Mass: 123.97 67-162/88-224 g LV Mass Index: 66.65 43-95/49-115 g/m2 LVOT Diam: 2.00 3.0+(-)1.3 cm Mitral Valve MV Pk E: 0.75 MV PK A: 1.13 MV Decel Time: 290.00 E/A: 0.70 E'Lateral: 7.18 E'Medial: 5.66 E/E' Med: 13.20 E/E' Lat: 10.40 PHT: 85.00 MVA PHT: 2.59 Decel [place]: 2.58 Aortic Valve AoV Pk Sorin: 1.65 AoV Mn Sorin: 1.05 AoV VTI: 0.28 AoV Pk Grad: 11.00 Aov Mn Grad: 5.00 BARBI Cont.VTI: 2.51 LVOT LVOT Pk Sorin: 1.13 LVOT Mn Sorin: 0.77 LVOT VTI: 0.23 LVOT Pk Grad: 5.00 LVOT Mn Grad: 3.00 LVOT Diam: 2.00 LVOT Area: 3.14 Diastolic Function MV Pk E: 0.75 MV Pk A: 1.13 E/A: 0.70 E'Medial: 5.66 E/E' Med: 13.20 E' Laterial: 7.18 E/E' Lat: 10.40 Right Ventricle TAPSE (mm): 2.17 TVS' Sorin: 15.90 Tricuspid Valve TR Pk Sorin: 2.06 TR Pk Grad: 17.00 RA Press: 3.00 RVSP: 20.00 Great Vessels Aorta Ao Root-2D: 2.90 2.0-3.7 cm Ao Asc: 3.00 2.1-3.4 cm Ao Arch: 3.00 Updated in Other Vendor System with Status of Final Arvind Burns MD electronically signed on 01/14/2021 1:21:33 PM with status of Final
== END ==
LOC: HO.CARD 08:28
PROVIDERS: Visit Provider Internal Medicine Cardiovascular Disease
DX: R07.2 Precordial pain (principal); I10 Essential (primary) hypertension
CPT/HCPCS: 93306

== ENCOUNTER 2021-01-19 13:34 | Outpatient (RCR) | payer OTHER, SELFPAY | END 2021-02-23 12:20 | disposition home or self-care (01) | LOC: HO.PT 13:34 | PROVIDERS: PCP Family Medicine; Visit Provider Family Medicine | DX: Z74.09 Other reduced mobility (principal) | CPT/HCPCS: 97110; 97162 ==

== ENCOUNTER → 2021-02-02 14:05 | Outpatient (BNVA) | payer OTHER, SELFPAY | PROVIDERS: PCP Family Medicine; Visit Provider Nurse Practitioner Gerontology | DX: E11.65 Type 2 diabetes mellitus with hyperglycemia (principal); E11.21 Type 2 diabetes mellitus with diabetic nephropathy; E78.5 Hyperlipidemia, unspecified; E04.2 Nontoxic multinodular goiter; I10 Essential (primary) hypertension; Z91.19 Patient's noncompliance with other medical treatment and regimen; Z79.4 Long term (current) use of insulin | CPT/HCPCS: 82947; 83036; 99212 ==

== ENCOUNTER → 2021-02-18 14:11 | Outpatient (BNVA) | payer OTHER, SELFPAY | PROVIDERS: PCP Family Medicine; Referring Provider Family Medicine; Visit Provider Nurse Practitioner Family | DX: E11.65 Type 2 diabetes mellitus with hyperglycemia (principal); E78.5 Hyperlipidemia, unspecified; I10 Essential (primary) hypertension; R07.89 Other chest pain | CPT/HCPCS: 99212 ==

== ENCOUNTER 2021-03-02 12:50 | Outpatient (REF) | payer OTHER, SELFPAY ==
[2021-03-02 14:51] LABS: Creatinine Urine 69.38 mg/dL; Microalbum/Creatinine Ratio Ur 11.5 ug/mg cr
== END 2021-03-02 12:51 | disposition home or self-care (01) ==
LOC: HO.LAB 12:50
PROVIDERS: Visit Provider Nurse Practitioner Gerontology
DX: E04.2 Nontoxic multinodular goiter (principal)
CPT/HCPCS: 82043

== ENCOUNTER → 2021-05-05 08:39 | Outpatient (BNVA) | payer OTHER, SELFPAY | PROVIDERS: PCP Family Medicine; Visit Provider Nurse Practitioner Gerontology | CPT/HCPCS: Q3014 ==

== ENCOUNTER → 2021-05-14 09:57 | Outpatient (BNVA) | payer OTHER, SELFPAY | PROVIDERS: PCP Family Medicine; Visit Provider Nurse Practitioner Family | DX: M19.011 Primary osteoarthritis, right shoulder (principal); M25.511 Pain in right shoulder; G89.29 Other chronic pain | CPT/HCPCS: 99202 ==

== ENCOUNTER 2021-05-25 10:47 | Outpatient (REF) | payer OTHER, SELFPAY ==
[2021-05-25 12:50] LABS: MANUAL DIFF FLAG NO
[2021-05-25 13:14] LABS: Basophils Absolute Auto 0.1 X10*3/uL (0.0-0.2); Basophils Percent Auto 0.5 % (0-2); Eosinophils Absolute Auto 0.5 X10*3/uL (0.0-0.4); Hematocrit 39.5 % (37.0-47.0); Hemoglobin 12.2 g/dl (12.0-16.0); Imm Gran Abs Auto 0.06 X10*3/uL (0.00-0.03); Imm Gran Pct Auto 0.6 % (0.0-0.4); Lymphocytes Percent Auto 29.4 % (20-40); Mean Corpuscular HGB Conc 30.9 g/dl (31.0-35.0); Mean Corpuscular Hemoglobin 27.1 pg (27.0-33.0); Mean Corpuscular Volume 87.6 fL (80.0-98.0); Mean Platelet Volume 12.1 fL (9.4-12.3); Monocytes Absolute Auto 0.7 X10*3/uL (0.1-1.2); Neutrophils Absolute Auto 5.8 x10*3/uL (2.0-8.3); Neutrophils Percent Auto 57.5 % (45-73); Platelet Count 244 X10*3/uL (160-400); Red Blood Count 4.51 X10*6/uL (4.20-5.50); Red Cell Distribution Width 14.9 % (11.0-16.0)
[2021-05-25 13:39] LABS: Creatinine Urine 34.42 mg/dL; Microalbum/Creatinine Ratio Ur 14.5 ug/mg cr
[2021-05-25 13:43] LABS: Alanine Aminotransferase 30 U/L (0-31); Albumin Level 4.2 g/dL (3.5-5.0); Alkaline Phosphatase 110 U/L (39-117); Anion Gap 17 (12-20); Aspartate Amino Transferase 25 U/L (5-31); Bilirubin Total 0.4 mg/dL (0.0-1.0); Blood Urea Nitrogen 16 mg/dL (9-16); Calcium 10.1 mg/dL (8.4-10.2); Carbon Dioxide 27 mmol/L (22-29); Chloride 100 mmol/L (96-108); Estimated Glomerular Filt Rate > 60; Glucose Random 252 mg/dL (60-115); Lipase 50 U/L (8-78); Potassium 4.5 mmol/L (3.3-5.1); Sodium 139 mmol/L (135-145); Total Protein 7.2 g/dL (6.5-8.0)
[2021-05-25 14:15] LABS: Appearance Urine CLEAR; Color Urine YELLOW; Glucose Urine UA >=1000 MG/DL (NEG); Leukocyte Esterase Urine NEG (NEG); Nitrite Urine NEG (NEG); PH 5.5 (5.0-8.0); Urine Blood NEG (NEG); Urine Ketones NEG (NEG); Urine Protein NEG (NEG-TRACE)
[2021-05-25 15:58] LABS: RBC Urine 0 /HPF (0); Renal Epithelial Cells Urine 2+ /LPF; Squamous Epithelial Cell Urine 1+ /LPF
== END 2021-05-25 10:48 | disposition home or self-care (01) ==
LOC: HO.LAB 10:47
PROVIDERS: Absent Provider Nurse Practitioner Gerontology; PCP Family Medicine; Referring Provider Family Medicine; Visit Provider Internal Medicine Gastroenterology
DX: R10.11 Right upper quadrant pain (principal); K59.09 Other constipation; C18.9 Malignant neoplasm of colon, unspecified; R93.429 Abnormal radiologic findings on diagnostic imaging of unspecified kidney; K21.9 Gastro-esophageal reflux disease without esophagitis; E11.21 Type 2 diabetes mellitus with diabetic nephropathy
CPT/HCPCS: 36415; 80053; 81001; 81003; 82043; 83690; 85025; 99212

== ENCOUNTER 2021-05-29 06:38 | Outpatient (REF) | payer OTHER, SELFPAY ==
--- NOTE | ~2021-05-29 | CT_ITS ---
EXAMINATION: CT ABDOMEN AND PELVIS WITH CONTRAST CLINICAL INFORMATION: Right upper quadrant pain. COMPARISON: Previous CT of the abdomen and pelvis October 2020 and renal and pelvic ultrasound November 2020. TECHNIQUE: Multidetector volumetric images were obtained from the superior aspect of the liver through the pubic symphysis following administration 85 mL of Omnipaque 350 intravenous contrast. Sagittal and coronal reformatted images were obtained on the technologist's workstation. Oral contrast: Yes This CT examination was performed using dose optimization techniques as appropriate, variously including the following: *Automated exposure control *Adjustment of mA and/or kV according to patient size (this includes techniques or standardized protocols for targeted exams where dose is matched to indication/reason for exam; i.e. extremities or head) *Use of iterative reconstruction technique DLP: 542 mGy-cm FINDINGS: LUNG BASES: The visualized lung bases are unremarkable. LIVER, GALLBLADDER, AND BILIARY TREE: The liver is low in attenuation suggestive of fatty infiltration. There is a small calcification in the right lobe of the liver. No other focal liver lesion. No biliary duct dilatation. The gallbladder has been removed. PANCREAS: Unremarkable. SPLEEN: There are calcifications in the spleen. The spleen is otherwise unremarkable. ADRENAL GLANDS: There is a stable 1 cm left adrenal nodule. The right adrenal gland is normal. KIDNEYS AND URETERS: There is a 1.4 cm low-attenuation lesion exophytic to the lower pole of the right kidney. Appearance is again worrisome for a mass. This does not appear appreciably changed from previous exams. There are small bilateral renal cysts that are stable. No imaging follow-up needed. BLADDER: Unremarkable. GASTROINTESTINAL TRACT: There are postsurgical changes following left colectomy. The small and large bowel is otherwise unremarkable. The stomach is unremarkable. The appendix is unremarkable. ABDOMINAL WALL: There are postsurgical changes following ventral hernia repair mesh. LYMPH NODES: Normal. VASCULAR: There is evidence of atherosclerotic disease. PELVIC VISCERA: The uterus appears to have been removed. There is a left pelvic cyst measuring 1.5 x 5 cm. This is stable from previous exams and probably represents a left adnexal or paraovarian cyst. OSSEOUS STRUCTURES: There are degenerative changes of the spine. CT/CT abdomen pelvis w con IMPRESSION: No acute findings. Fatty liver. Stable 1.4 cm right renal lesion worrisome for mass. Stable bilateral renal cysts. Stable left adrenal nodule. Stable 1.5 x 5 cm left pelvic cyst probably representing a left adnexal or paraovarian cyst. Fleischner guidelines were followed.
[2021-05-29] MEDS: iohexoL 350 MG/ML 100 ML INFUS..BTL 85 ML IV (09:35)
== END 2021-05-29 06:39 | disposition home or self-care (01) ==
LOC: HO.CT 06:38
PROVIDERS: Visit Provider Internal Medicine Gastroenterology
DX: R10.11 Right upper quadrant pain (principal); R93.429 Abnormal radiologic findings on diagnostic imaging of unspecified kidney
CPT/HCPCS: 74177; Q9967

== ENCOUNTER 2021-07-02 11:21 | Outpatient (REF) | payer OTHER, SELFPAY ==
--- NOTE | ~2021-07-02 | US_ITS ---
EXAMINATION: US THYROID CLINICAL INFORMATION: Nontoxic multinodular goiter. COMPARISON: Ultrasound thyroid 03/26/2020. TECHNIQUE: Linear transducer crowe-scale and color Doppler examination with attention to the region of the thyroid. FINDINGS: SIZE: Measurements of the thyroid lobes and nodules are given in sagittal, anteroposterior and transverse dimensions respectively. Right Thyroid Lobe: 5.7 x 2.6 x 1.9 cm, volume 14.7 mL. Previously 5.2 x 2.1 x 2.1 cm, volume 12.0 mL. Parenchyma: The gland echotexture is heterogeneous. Thyroid vascularity is increased. Left Thyroid Lobe: 4.9 x 3.1 x 3.0 cm, volume 23.8 mL. Previously 4.2 x 2.7 x 2.4 cm, volume 14.2 mL. Parenchyma: The gland echotexture is heterogeneous. Thyroid vascularity is increased. Isthmus: 0.9 cm in maximum AP dimension. Previously 0.7 cm. Estimated total number of nodules greater than or equal to 1 cm: 4. Effervescent Salts Compounder nodules are described as follows: 1. Location: Left mid. Size: 2.6 x 1.6 x 1.7 cm, volume 3.7 mL. Previously: 1.6 x 1.2 x 1.5 cm, volume 1.5 mL. Nodule characteristics: Composition: Solid/almost completely solid (2). Echogenicity: Hypoechoic (2). Shape: Not taller than wide (0). Margins: Smooth (0). Echogenic Foci: None (0). ACR TI-RADS total points: 4 ACR TI-RADS category: 4 Significant change in size (>/= 20% in 2 dimensions and minimal increase of 2 mm or 50% or greater increase in volume): Yes Change in features: No Change in ACR TI-RADS risk category: No 2. Location: Left mid. Size: 2.1 x 1.2 x 2.2 cm, volume 3.0 mL. Previously: 1.4 x 1.0 x 1.2 cm, volume 0.9 mL. Nodule characteristics: Composition: Solid/almost completely solid (2). Echogenicity: Hypoechoic (2). Shape: Not taller than wide (0). Margins: Smooth (0). Echogenic Foci: None (0). ACR TI-RADS total points: 4 ACR TI-RADS category: 4 Significant change in size (>/= 20% in 2 dimensions and minimal increase of 2 mm or 50% or greater increase in volume): Yes Change in features: No Change in ACR TI-RADS risk category: No 3. Location: Left lower. Size: 1.5 x 1.9 x 1.6 cm, volume 2.2 mL. Previously: 1.3 x 1.7 x 1.5 cm, volume 1.7 mL. Nodule characteristics: Composition: Solid (2). Echogenicity: Hypoechoic (2). Shape: Taller than wide (3). Margins: Smooth (0). Echogenic Foci: None (0). ACR TI-RADS total points: 7 ACR TI-RADS category: 5 Significant change in size (>/= 20% in 2 dimensions and minimal increase of 2 mm or 50% or greater increase in volume): Change in features: Change in ACR TI-RADS risk category: 4. Location: Right upper. Size: 1.1 x 1.1 x 0.8 cm, volume 0.5 mL. Previously: 1.1 x 1.1 x 0.8 cm, volume 0.5 mL. Nodule characteristics: Composition: Solid/almost completely solid (2). Echogenicity: Hypoechoic (2). Shape: Taller than wide (3). Margins: Smooth (0). Echogenic Foci: None (0). ACR TI-RADS total points: 7 ACR TI-RADS category: 5 Significant change in size (>/= 20% in 2 dimensions and minimal increase of 2 mm or 50% or greater increase in volume): Change in features: Change in ACR TI-RADS risk category: 5. Location: Right lower. Size: 0.8 x 0.4 x 0.8 cm, volume 0.1 mL. Previously: 0.9 x 0.8 x 0.9 cm, volume 0.3 mL. Nodule characteristics: Composition: Solid/almost completely solid (2). Echogenicity: Hyperechoic (1). Shape: Not taller than wide (0). Margins: Ill-defined (0). Echogenic Foci: Macrocalcifications (1). ACR TI-RADS total points: 4 ACR TI-RADS category: 4 Significant change in size (>/= 20% in 2 dimensions and minimal increase of 2 mm or 50% or greater increase in volume): Change in features: Change in ACR TI-RADS risk category: NODES: No lymphadenopathy is seen in the tissue surrounding the thyroid gland. US/US thyroid IMPRESSION: Enlarged heterogeneous hypervascular thyroid gland. There is interval increase in size in the 2 largest nodules in the left lobe. Many nodules meet TI-RADS criteria for fine-needle aspiration or followup. ACR TI-RADS RECOMMENDATION REFERENCE: Ultrasound-guided fine-needle aspiration, followup ultrasound, no further followup. * TR1 (0 point) and TR 2 (2 points): No FNA or followup. * TR3 (3 points): FNA if more than or equal to 2.5 cm in maximum dimension, followup ultrasound in 1, 3 and 5 years if 1.5 to 2.4 cm in maximum dimension. * TR4 (4-6 points): FNA if more than or equal to 1.5 cm in maximum dimension, followup ultrasound in 1, 2, 3 and 5 years if 1 to 1.4 cm in maximum dimension. * TR5 (more than or equal to 7 points): FNA if more than or equal to 1 cm in maximum dimension, followup ultrasound every year for 5 years if 0.5 to 0.9 cm in maximum dimension. * TR3, TR4 or TR5 nodules that are below the size threshold for followup receive no followup.
== END 2021-07-02 11:22 | disposition home or self-care (01) ==
LOC: HO.US 11:21
PROVIDERS: Visit Provider Nurse Practitioner Gerontology
DX: E04.2 Nontoxic multinodular goiter (principal)
CPT/HCPCS: 76536

== ENCOUNTER → 2021-07-16 09:48 | Outpatient (BNVA) | payer OTHER, SELFPAY | PROVIDERS: PCP Family Medicine; Visit Provider Urology | DX: C64.9 Malignant neoplasm of unspecified kidney, except renal pelvis (principal) | CPT/HCPCS: 99202 ==

== ENCOUNTER → 2021-07-17 12:18 | Outpatient (BNVA) | payer OTHER, SELFPAY | PROVIDERS: PCP Family Medicine; Visit Provider Registered Nurse Diabetes Educator | DX: E11.21 Type 2 diabetes mellitus with diabetic nephropathy (principal); Z71.89 Other specified counseling | CPT/HCPCS: 99211 ==

== ENCOUNTER → 2021-07-23 12:02 | Outpatient (BNVA) | payer OTHER, SELFPAY | PROVIDERS: PCP Family Medicine; Referring Provider Family Medicine; Visit Provider Internal Medicine Gastroenterology | DX: K21.9 Gastro-esophageal reflux disease without esophagitis (principal); K59.09 Other constipation; R10.11 Right upper quadrant pain; C18.9 Malignant neoplasm of colon, unspecified | CPT/HCPCS: 99212 ==

== ENCOUNTER 2021-08-05 09:08 | Outpatient (REF) | payer OTHER, SELFPAY ==
[2021-08-05 10:07] LABS: Hematocrit 39.1 % (37.0-47.0); Mean Corpuscular HGB Conc 30.7 g/dl (31.0-35.0); Mean Corpuscular Hemoglobin 26.2 pg (27.0-33.0); Mean Corpuscular Volume 85.4 fL (80.0-98.0); Mean Platelet Volume 11.8 fL (9.4-12.3); Platelet Count 255 X10*3/uL (160-400); Red Blood Count 4.58 X10*6/uL (4.20-5.50); White Blood Count 9.2 X10*3/uL (4.8-10.8)
[2021-08-05 10:46] LABS: Anion Gap 16 (12-20); Blood Urea Nitrogen 17 mg/dL (9-16); Carbon Dioxide 25 mmol/L (22-29); Chloride 101 mmol/L (96-108); Estimated Glomerular Filt Rate > 60; Sodium 138 mmol/L (135-145)
[2021-08-05 11:38] LABS: INTERNATIONAL NORM RATIO 0.9 (0.9-1.1); Prothrombin Time 10.4 SEC (9.9-13.0)
[2021-08-05 11:41] LABS: Partial Thromboplastin Time 28.6 SEC (24.1-38.0)
== END 2021-08-05 09:09 | disposition home or self-care (01) ==
LOC: HO.LAB 09:08
PROVIDERS: PCP Family Medicine; Referring Provider Family Medicine; Visit Provider Urology
DX: C64.9 Malignant neoplasm of unspecified kidney, except renal pelvis (principal)
CPT/HCPCS: 36415; 80051; 82565; 84520; 85027; 85610; 85730

== ENCOUNTER 2021-08-11 10:47 | Day surgery (SDC) | payer OTHER, SELFPAY ==
--- NOTE | ~2021-08-11 | CT_ITS ---
EXAMINATION: CT-GUIDED RENAL BIOPSY AND CRYOABLATION CLINICAL INFORMATION: Right renal mass. COMPARISON: Previous CT scans, most recent May 2019. TECHNIQUE: Procedure and risks and benefits including bleeding, infection and injury to the kidney were discussed with the patient and informed consent was obtained. The patient was positioned in the prone position. Limited axial images through the kidneys were performed. The right flank was prepped and draped in usual sterile fashion. Skin and soft tissues were anesthetized with 1% lidocaine plain. Using CT guidance and a coaxial system, access to the mass exophytic to the lower pole of the right kidney was obtained. Two 20-gauge core biopsies were obtained. Subsequently, a single 17-gauge 17.5 cm in length IceSphere cryoablation probe was positioned in the mass. Two 10-minute freeze 5-minute thaw cycles were performed. Imaging at 10 minutes and 30 minutes during the freeze/thaw cycle was performed. The probe was removed and postprocedure imaging was also performed. Anesthesia was provided by the anesthesia department. Patient received 600 mg of clindamycin intravenously as prophylaxis. Patient received 45 mL Omnipaque 350 intravenous contrast. Patient Dose: 411 mGy-cm. FINDINGS: There is a 1 cm mass exophytic to the lower pole of the right kidney that was targeted for biopsy and cryoablation. Images demonstrate adequate ice ball obscuring the lesion. No hemorrhage seen. CT/CT guided ablation renal IMPRESSION: CT-guided biopsy and cryoablation of right renal mass.
[2021-08-11 12:10] VITALS: BP 127/57; PULSE 81; RESP 16; TEMP 36.8; O2SAT 100; BMI 37.0
[2021-08-11 12:10] LABS: MANUAL DIFF FLAG NO
[2021-08-11 12:16] LABS: Basophils Percent Auto 0.4 % (0-2); Eosinophils Absolute Auto 0.7 X10*3/uL (0.0-0.4); Eosinophils Percent Auto 6.4 % (0-4); Hematocrit 39.2 % (37.0-47.0); Imm Gran Abs Auto 0.06 X10*3/uL (0.00-0.03); Imm Gran Pct Auto 0.5 % (0.0-0.4); Lymphocytes Absolute Auto 2.5 X10*3/uL (1.2-4.9); Lymphocytes Percent Auto 22.3 % (20-40); Mean Corpuscular HGB Conc 30.6 g/dl (31.0-35.0); Mean Corpuscular Volume 84.8 fL (80.0-98.0); Mean Platelet Volume 11.3 fL (9.4-12.3); Monocytes Absolute Auto 0.8 X10*3/uL (0.1-1.2); Monocytes Percent Auto 7.2 % (2-11); Neutrophils Percent Auto 63.2 % (45-73); Platelet Count 246 X10*3/uL (160-400); Red Blood Count 4.62 X10*6/uL (4.20-5.50); Red Cell Distribution Width 15.2 % (11.0-16.0)
[2021-08-11 12:19] LABS: Prothrombin Time 11.6 SEC (9.9-13.0)
[2021-08-11 12:21] LABS: Partial Thromboplastin Time 30.4 SEC (24.1-38.0)
--- NOTE | 2021-08-11 12:32 | P.CONAN_ITS ---
HPI - Anesthesia Eval Consult details Narrative: Right renal mass PMFSH Active Problems Active Problems: All Active Problems (Updated 07/16/21 @ 14:50 by Taras Chavez MD) Renal cancer (Acute) Abnormal CT scan, kidney (Acute) RUQ abdominal pain (Acute) Degenerative joint disease of right acromioclavicular joint (Acute) Chronic right shoulder pain (Acute) Chest discomfort (Acute) GERD (gastroesophageal reflux disease) (Acute) Current non-adherence to medical treatment (Acute) Chronic constipation (Acute) Hand tendonitis (Acute) Osteoarthritis of right shoulder (Acute) Emanuel's disease (Acute) Distal radius fracture, left (Acute) Hand pain, right (Acute) Non-toxic multinodular goiter (Acute) Diabetic nephropathy associated with type 2 diabetes mellitus (Acute) 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 (Acute) Hypertension (Acute) group home (current) use of insulin (Acute) Colon cancer (Acute) Diabetes type 2, uncontrolled (Acute) Vitamin D deficiency (Acute) Past Medical History Medical History Cataract Colon cancer (~2010) Current non-adherence to medical treatment Diabetes type 2, uncontrolled Diabetic nephropathy associated with type 2 diabetes mellitus 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 Emanuel's disease Hypertension group home (current) use of insulin Non-toxic multinodular goiter Vitamin D deficiency Family History Family History Maternal Aunt Esophageal cancer Breast cancer Brother Colon cancer Diabetes Brother Colon cancer Father Diabetes Sister Diabetes Sister Diabetes Family history of problems with anesthesia: No Surgical History Surgical History H/O colonoscopy H/O total hysterectomy Hx of breast reduction, elective Hx of tonsillectomy History of Problems with Anesthesia: No Social History Social History Household Members: None Housing: Apartment Alcohol intake: never Patient Tobacco Use Status: Never used Tobacco Use of substances other than those prescribed or required for medical reasons: No Are you DNR?: No Advance Directives: No Advance Directives Information Provided: Yes Current occupational status: disabled 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 Meds Allergies Allergy/AdvReac Type Severity Reaction Status Date / Time leal [LEAL] Allergy Severe ANAPHYLAXIS Verified 08/11/21 12:01 cucumber Allergy Severe Shortness Verified 08/11/21 12:01 of Breath metoclopramide [From Reglan] Allergy Severe SEIZURE-LIKE Verified 08/11/21 12:01 ACTIVITIES oxycodone [From PERCOCET] Allergy Mild ITCHING Verified 08/11/21 12:01 Penicillins Allergy Mild UNKNOWN Verified 08/11/21 12:01 Home Medications Medication Instructions Recorded Confirmed Last Taken Type albuterol sulfate 90 mcg/actuation 2 puff INHALATION Q4-6H PRN 03/11/20 07/23/21 08/11/21 09:00 History aerosol inhaler (Ventolin HFA) lorazepam 1 mg tablet 1 tab PO BID PRN 03/11/20 07/23/21 Unknown History omeprazole 20 mg capsule,delayed 1 cap PO BID 03/11/20 07/23/21 Unknown History release acetaminophen 300 mg-codeine 30 mg 1 tab PO TID PRN 03/25/20 07/23/21 Unknown History tablet albuterol sulfate mg INHALATION 03/25/20 07/23/21 Unknown History diclofenac sodium 1 % topical gel 2 g TOPICAL QID 03/25/20 07/23/21 Unknown History hydrochlorothiazide 12.5 mg tablet 12.5 mg PO DAILY 03/25/20 07/23/21 Unknown History lidocaine 5 % topical ointment TOPICAL 03/25/20 07/23/21 Unknown History lisinopril 40 mg tablet 40 mg PO DAILY 03/25/20 07/23/21 08/11/21 09:00 History pen needle, diabetic 32 gauge x #50 ea 03/25/20 07/23/21 Unknown History bupropion HCl 300 mg 24 hr tablet, 300 mg PO tab 05/15/20 07/23/21 Unknown History extended release fluticasone propionate 110 1 puff PO BID 05/14/21 07/23/21 Unknown History mcg/actuation HFA aerosol inhaler (Flovent HFA) guaifenesin 100 mg/5 mL oral liquid 200 mg PO Q4H PRN 05/14/21 07/23/21 Unknown History dapagliflozin 10 mg tablet 10 mg PO DAILY 07/16/21 07/23/21 Unknown History (Farxiga) fluticasone propionate 50 spray INTRANASAL 07/16/21 07/23/21 Unknown History mcg/actuation nasal spray,suspension hydrocortisone-acetic acid 1 %-2 % 2 drp OTIC (EARS) QID 07/16/21 07/23/21 Unknown History ear drops tizanidine 4 mg tablet 4 mg PO Q6-8H PRN 07/16/21 07/23/21 Unknown History Exam Exam Date and Time: August 11, 2021 1232 Height,Weight and Vital Signs: Height 5 ft Weight 86.183 kg Last Vital Signs Temp 98.2 F 08/11/21 12:10 Pulse 81 08/11/21 12:10 Resp 16 08/11/21 12:10 BP 127/57 L 08/11/21 12:10 Pulse Ox 100 08/11/21 12:10 Pertinent Lab Results Pertinent Lab Results: Laboratory Tests 08/11/21 08/11/21 12:07 12:07 WBC 11.0 H RBC 4.62 Hgb 12.0 Hct 39.2 MCV 84.8 MCH 26.0 L MCHC 30.6 L RDW 15.2 Plt Count 246 MPV 11.3 Immature Gran % (Auto) 0.5 H Neut % (Auto) 63.2 Lymph % (Auto) 22.3 [place] % (Auto) 7.2 Eos % (Auto) 6.4 H Baso % (Auto) 0.4 Lymph # (Auto) 2.5 [place] # (Auto) 0.8 Eos # (Auto) 0.7 H Baso # (Auto) 0.0 Abs Immat Gran (auto) 0.06 H Absolute Neuts (auto) 7.0 Absolute Nucleated RBC 0.000 Nucleated RBC % (auto) 0.0 PT 11.6 INR 1.0 APTT 30.4 Airway Mallampati Class: III TM Dist: >3cm Neck ROM: Full Loose/Missing/Broken Teeth: No Heart: [id number] Lungs: cta b/l Assessment and Plan Assessment Anesthesia Assessment: Anesthesia Plan Discussed and Chart Reviewed Final Anesthetic Review Family History of Problems with Anesthesia: No History of Problems with Anesthesia: No NPO: Yes ASA Class: III Final Preanesthetic Review: No Changes in Pt Med Stat, Meds/Allgs Chart Reviewed, Consent Obtained/Reviewed and Anes Risks/Benef Reviewed Patient Risk: Intermediate Procedure Risk: Intermediate Assessment/Block/Sedation in SS: Assess/Block/Sedation-SS Anesthetic Plan Anesthetic Plan: MAC: and Agree w/ Assess. and Plan Disposition: Standard PACU
[2021-08-11 12:35] LABS: Glucose, Whole Blood 142 mg/dL (60-115)
--- NOTE | 2021-08-11 15:26 | HO.RADPN ---
RADIOLOGY Narrative Narrative: Right renal biopsy and cryoablation of lower pole mass. Two 20g core biopsies. 17g 17.5 cm ice sphere cyroablation probe used. No complication.
[2021-08-11 15:42] VITALS: BP 108/52; PULSE 80; RESP 16; TEMP 36.3; O2SAT 100
[2021-08-11 15:57] VITALS: BP 117/54; PULSE 78; RESP 16; O2SAT 100
[2021-08-11 16:12] VITALS: BP 122/56; PULSE 81; RESP 16; O2SAT 97
[2021-08-11] MEDS: iohexoL 350 MG/ML 100 ML INFUS..BTL IV (16:15)
[2021-08-11 16:27] VITALS: BP 108/41; PULSE 82; RESP 18; O2SAT 98
[2021-08-11] MEDS: Acetaminophen 325 MG TABLET 650 MG PO (16:27)
[2021-08-11 16:42] VITALS: BP 127/55; PULSE 82; RESP 18; TEMP 36.3; O2SAT 96
== END 2021-08-11 16:58 | disposition home or self-care (01) ==
PROVIDERS: PCP Family Medicine; Visit Provider Radiology Diagnostic Radiology
DX: C64.1 Malignant neoplasm of right kidney, except renal pelvis (principal); I10 Essential (primary) hypertension; E06.3 Autoimmune thyroiditis; E04.2 Nontoxic multinodular goiter; E55.9 Vitamin D deficiency, unspecified; E78.5 Hyperlipidemia, unspecified; E11.21 Type 2 diabetes mellitus with diabetic nephropathy; Z79.4 Long term (current) use of insulin; Z88.0 Allergy status to penicillin; Z88.8 Allergy status to other drugs, medicaments and biological substances
CPT/HCPCS: 36415; 50593; 77013; 82947; 85025; 85610; 85730; 88305; 88341; 88342; C2618; J2250; J3010; Q9967

== ENCOUNTER → 2021-08-25 10:33 | Outpatient (BNVA) | payer OTHER, SELFPAY | PROVIDERS: PCP Family Medicine; Visit Provider Urology | DX: Z13.89 Encounter for screening for other disorder (principal) | CPT/HCPCS: Q3014 ==

== ENCOUNTER → 2021-10-01 12:14 | Outpatient (BNVA) | payer OTHER, SELFPAY | PROVIDERS: PCP Family Medicine; Visit Provider Internal Medicine | DX: E04.2 Nontoxic multinodular goiter (principal) | CPT/HCPCS: Q3014 ==

== ENCOUNTER 2021-10-20 10:12 | Outpatient (REF) | payer OTHER, SELFPAY ==
[2021-10-20 12:00] LABS: Estimated Average Glucose 189 mg/dL; Hemoglobin A1c % 8.2 %
[2021-10-20 12:32] LABS: Vitamin D 25-OH Total 41.7 ng/mL (>30)
[2021-10-20 12:43] LABS: Thyroid Stimulating Hormone 2.52 uIU/mL (0.32-4.0)
[2021-10-20 12:44] LABS: Free T4 (Free Thyroxine) 1.09 ng/dL (0.71-1.85)
[2021-10-20 13:35] LABS: Blood Urea Nitrogen 17 mg/dL (9-16); Estimated Glomerular Filt Rate > 60
[2021-10-20 13:39] LABS: Alanine Aminotransferase 32 U/L (0-31); Alkaline Phosphatase 90 U/L (39-117); Anion Gap 16 (12-20); Aspartate Amino Transferase 32 U/L (5-31); Bilirubin Total 0.2 mg/dL (0.0-1.0); Blood Urea Nitrogen 17 mg/dL (9-16); Carbon Dioxide 25 mmol/L (22-29); Chloride 101 mmol/L (96-108); Cholesterol 218 mg/dL; Estimated Glomerular Filt Rate > 60; Glucose Fasting 135 mg/dL (60-99); HDL Cholesterol 40 mg/dL; LDL Cholesterol Calculated 149 mg/dl; Potassium 4.1 mmol/L (3.3-5.1); Sodium 138 mmol/L (135-145); Total Protein 6.8 g/dL (6.5-8.0); Triglycerides 147 mg/dL
[2021-10-22 09:17] LABS: LDL Cholesterol Direct 167 mg/dL (<100)
== END 2021-10-20 10:13 | disposition home or self-care (01) ==
LOC: HO.LAB 10:12
PROVIDERS: Absent Provider Internal Medicine; PCP Family Medicine; Referring Provider Urology; Visit Provider Nurse Practitioner Gerontology
DX: C64.9 Malignant neoplasm of unspecified kidney, except renal pelvis (principal); E11.21 Type 2 diabetes mellitus with diabetic nephropathy; E04.2 Nontoxic multinodular goiter; E55.9 Vitamin D deficiency, unspecified
CPT/HCPCS: 36415; 80053; 80061; 82306; 82565; 83036; 83721; 84439; 84443; 84520

== ENCOUNTER 2021-11-26 14:48 | Outpatient (REF) | payer OTHER, SELFPAY ==
--- NOTE | ~2021-11-26 | XR_ITS ---
EXAMINATION: XR HAND, LEFT CLINICAL INFORMATION: Pain. Injury 2-3 weeks ago. COMPARISON: Radiographs left wrist 03/22/2017 TECHNIQUE: Left hand is imaged in 3 views. FINDINGS: Normal bony mineralization. No periarticular demineralization. No acute or healing fracture, dislocation, or destructive process. The ulnar variance is neutral. The carpus shows no focal narrowing or erosive change or definite chondrocalcinosis. There is mild dorsal spurring from the mid carpus possibly the superior lunate. The MCP joints appear normal. There is benign-appearing periarticular soft tissue mineralization lateral side fifth finger PIP joint possibly involving the collateral ligament, and likely hydroxyapatite deposition. There is borderline joint narrowing. No erosive change or periostitis. The remainder of the PIP joints are unremarkable. There is borderline narrowing index and fifth finger DIP joints and trace para-articular mineralization medial side fourth finger DIP joint without erosion. XR/XR hand LT min 3V IMPRESSION: -Carpus and MCP joints are unremarkable. -Probable benign hydroxyapatite deposition lateral side fifth finger PIP joint. No erosive changes. -Borderline joint narrowing 2nd and 5th DIP joints. Mild para-articular mineralization medial side 4th DIP. No erosive changes.
== END 2021-11-26 14:49 | disposition home or self-care (01) ==
LOC: HO.CT 14:48
PROVIDERS: Absent Provider Internal Medicine; PCP Family Medicine; Visit Provider Family Medicine
DX: M79.645 Pain in left finger(s) (principal)
CPT/HCPCS: 73130

== ENCOUNTER 2021-12-01 12:55 | Outpatient (REF) | payer OTHER, SELFPAY ==
--- NOTE | ~2021-12-01 | CT_ITS ---
EXAMINATION: CT ABDOMEN WITHOUT AND WITH CONTRAST CLINICAL INFORMATION: Malignant neoplasm of kidney. COMPARISON: CT of abdomen and pelvis with contrast 05/21/[address]-guided ablation 08/11/2021. TECHNIQUE: Contiguous axial thin section helical images of the abdomen were performed before and after the administration of oral contrast and 85 mL of Omnipaque 350 intravenous contrast. The data set was reformatted in the coronal and sagittal planes and reviewed on an independent workstation. This CT examination was performed using dose optimization techniques as appropriate, variously including the following: *Automated exposure control *Adjustment of mA and/or kV according to patient size (this includes techniques or standardized protocols for targeted exams where dose is matched to indication/reason for exam; i.e. extremities or head) *Use of iterative reconstruction technique DLP: 977 mGy-cm FINDINGS: LUNG BASES: The lung bases are clear. Heart size is normal. LIVER, GALLBLADDER, AND BILIARY TREE: The liver is normal size, shape and position. No focal lesion or intrahepatic ductal dilatation seen. The gallbladder has been surgically removed. PANCREAS: The pancreas is normal size and density. No focal lesion seen. SPLEEN: There are punctate calcification/granuloma in the spleen. The spleen is otherwise normal size. ADRENAL GLANDS AND KIDNEYS: There is 1.1 cm left adrenal lesion measuring 20 Hounsfield units. The right adrenal gland is unremarkable. There is an exophytic lesion lower pole lateral cortex right kidney measuring 2.1 x 1.6 x 1.4 cm. There is a central round lesion of hyperdensity surrounded by hypodense likely fatty tissue. The central round lesion of hyperdense renal tissue likely ice ball phenomena, sequelae of cryoablation. It is unchanged since 08/11/2021 exam. The size of the lesion is stable. There is interpolar cyst left kidney. Normal cortical enhancement seen. No radiopaque calculi. Minimal perinephric stranding. BOWEL LOOPS: Postsurgical annular sutures are seen along the left colon. There is scattered stool and gas seen throughout the colon without distention. The small bowel loops are normal caliber. The stomach is nondistended. LYMPH NODES: Normal. VASCULAR: Unremarkable. BONES: No lytic or sclerotic process seen. CT/CT abdomen wo/w con IMPRESSION: Exophytic lesion lower pole right kidney post ablation. The lesion is stable. No abnormal enhancement seen. Left lower lobe cyst is stable. Otherwise the kidneys are unremarkable. Fleischner guidelines were followed.
[2021-12-01 14:04] LABS: Blood Urea Nitrogen 11 mg/dL (9-16); Estimated Glomerular Filt Rate > 60
[2021-12-01] MEDS: iohexoL 350 MG/ML 100 ML INFUS..BTL IV (17:40)
== END 2021-12-01 12:56 | disposition home or self-care (01) ==
LOC: HO.CT 12:55
PROVIDERS: PCP Family Medicine; Visit Provider Urology
DX: C64.9 Malignant neoplasm of unspecified kidney, except renal pelvis (principal)
CPT/HCPCS: 36415; 74170; 82565; 84520; Q9967

== ENCOUNTER 2021-12-03 12:52 | Outpatient (REF) | payer OTHER, SELFPAY ==
--- NOTE | ~2021-12-03 | MM_ITS ---
EXAMINATION: MM SCREENING DIGITAL BREAST TOMOSYNTHESIS, BILATERAL CLINICAL INFORMATION: Screening. Asymptomatic. The lifetime risk of breast cancer based on the Tyrer-Cuzick Model is 3.8%. COMPARISON: Mammography: October 08, 2020 and studies dating back to July 11, 2015 TECHNIQUE: Digital breast tomosynthesis is performed in both the craniocaudal and mediolateral oblique views along with computer-aided detection (CAD). Synthesized 2D images are generated from the tomosynthesis. FINDINGS: The breasts are almost entirely fatty (ACR BI-RADS breast composition Category a). There are no significant masses, abnormal calcifications, or other abnormalities. MM/MM tomosynthesis screening BI IMPRESSION: There are no significant changes from prior study. ASSESSMENT: BI-RADS 1: Negative RECOMMENDATION: Routine annual mammography screening. This patient's information was entered into a reminder system with a target due date for their next mammogram.
== END 2021-12-03 12:53 | disposition home or self-care (01) ==
LOC: HO.MAMMO 12:52
PROVIDERS: PCP Family Medicine; Visit Provider Family Medicine
DX: Z12.31 Encounter for screening mammogram for malignant neoplasm of breast (principal)
CPT/HCPCS: 77063; 77067

== ENCOUNTER 2021-12-18 09:05 | Day surgery (SDC) | payer OTHER, SELFPAY ==
[2021-12-14 12:55] VITALS: BMI 38.3
--- NOTE | 2021-12-17 10:20 | P.CONAN_ITS ---
Documented by User: Darling Suarez NP 12/17/21 10:22 HPI - Anesthesia Eval Consult details Narrative: 61yo F for Upper Endoscopy and Colonoscopy s/p CT guided renal mass ablation 07/2021 with TIVA PMFSH Active Problems Active Problems: All Active Problems (Updated 08/25/21 @ 10:43 by Taras Chavez MD) Renal cancer (Acute) Abnormal CT scan, kidney (Acute) RUQ abdominal pain (Acute) Degenerative joint disease of right acromioclavicular joint (Acute) Chronic right shoulder pain (Acute) Chest discomfort (Acute) GERD (gastroesophageal reflux disease) (Acute) Current non-adherence to medical treatment (Acute) Chronic constipation (Acute) Hand tendonitis (Acute) Osteoarthritis of right shoulder (Acute) Emanuel's disease (Acute) Distal radius fracture, left (Acute) Hand pain, right (Acute) Non-toxic multinodular goiter (Acute) Diabetic nephropathy associated with type 2 diabetes mellitus (Acute) 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 (Acute) Hypertension (Acute) 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 (Acute) Colon cancer (Acute) Diabetes type 2, uncontrolled (Acute) Vitamin D deficiency (Acute) Past Medical History Medical History Cataract Colon cancer (~2010) Current non-adherence to medical treatment Diabetes type 2, uncontrolled Diabetic nephropathy associated with type 2 diabetes mellitus 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 Emanuel's disease Hypertension 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 Non-toxic multinodular goiter Vitamin D deficiency Family History Family History Maternal Aunt Esophageal cancer Breast cancer Brother Colon cancer Diabetes Brother Colon cancer Father Diabetes Sister Diabetes Sister Diabetes Family history of problems with anesthesia: No Surgical History Surgical History H/O colonoscopy H/O total hysterectomy History of kidney surgery Hx of breast reduction, elective Hx of tonsillectomy History of Problems with Anesthesia: No Social History Social History Household Members: None Housing: Apartment Alcohol intake: never Patient Tobacco Use Status: Never used Tobacco Second Hand Smoke Exposure: No Use of substances other than those prescribed or required for medical reasons: No Are you DNR?: No Advance Directives: No Advance Directives Information Provided: Yes Advance Directives on File: No Current occupational status: disabled 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 Meds Allergies Allergy/AdvReac Type Severity Reaction Status Date / Time leal [LEAL] Allergy Severe ANAPHYLAXIS Verified 10/01/21 14:11 cucumber Allergy Severe Shortness Verified 10/01/21 14:11 of Breath metoclopramide [From Reglan] Allergy Severe SEIZURE-LIKE Verified 10/01/21 14:11 ACTIVITIES oxycodone [From PERCOCET] Allergy Mild ITCHING Verified 10/01/21 14:11 Penicillins Allergy Mild UNKNOWN Verified 10/01/21 14:11 Home Medications Medication Instructions Recorded Confirmed Last Taken Type albuterol sulfate 90 mcg/actuation 2 puff inhalation Q4-6H PRN 03/11/20 10/01/21 08/11/21 09:00 History aerosol inhaler (Ventolin HFA) Wheezing lorazepam 1 mg tablet 1 tab PO BID PRN anxiety 03/11/20 10/01/21 Unknown History omeprazole 20 mg capsule,delayed 1 cap PO BID 03/11/20 10/01/21 Unknown History release acetaminophen 300 mg-codeine 30 mg 1 tab PO TID PRN Pain 03/25/20 10/01/21 Unknown History tablet albuterol sulfate 2.5 mg/3 mL mg inhalation 03/25/20 10/01/21 Unknown History (0.083 %) solution for nebulization diclofenac sodium 1 % topical gel 2 g topical QID 03/25/20 10/01/21 Unknown History hydrochlorothiazide 12.5 mg tablet 12.5 mg PO DAILY 03/25/20 10/01/21 Unknown History lidocaine 5 % topical ointment topical 03/25/20 10/01/21 Unknown History lisinopril 40 mg tablet 40 mg PO DAILY 03/25/20 10/01/21 08/11/21 09:00 History bupropion HCl 300 mg 24 hr tablet, 300 mg PO 05/15/20 10/01/21 Unknown History extended release fluticasone propionate 110 1 puff PO BID 05/14/21 10/01/21 Unknown History mcg/actuation HFA aerosol inhaler (Flovent HFA) guaifenesin 100 mg/5 mL oral liquid 200 mg PO Q4H PRN 05/14/21 10/01/21 Unknown History dapagliflozin 10 mg tablet 10 mg PO DAILY 07/16/21 10/01/21 Unknown History (Farxiga) fluticasone propionate 50 spray intranasal 07/16/21 10/01/21 Unknown History mcg/actuation nasal spray,suspension hydrocortisone-acetic acid 1 %-2 % 2 drp otic (ears) QID 07/16/21 10/01/21 Unknown History ear drops tizanidine 4 mg tablet 4 mg PO Q6-8H PRN 07/16/21 10/01/21 Unknown History bisacodyl 5 mg tablet (Laxative 0 mg PO 08/25/21 10/01/21 Unknown History (bisacodyl)) psyllium husk (aspartame) 3.4 g PO DAILY 08/25/21 10/01/21 Unknown History gram/5.8 gram oral powder (Wal-Mucil Fiber (aspartame)) Exam Exam Date and Time: December 17, 2021 1020 Height,Weight and Vital Signs: Height 4 ft 11 in Weight 86.183 kg Pertinent Lab Results Pertinent Lab Results: Laboratory Tests 08/11/21 10/20/21 12/01/21 12:07 10:39 13:04 WBC 11.0 H Hgb 12.0 Hct 39.2 Plt Count 246 Sodium 138 Potassium 4.1 Chloride 101 Carbon Dioxide 25 BUN 11 Creatinine 0.80 Narrative Narrative: ECHO 12/2020 Conclusions: - 1. Normal LV systolic function with grade 1 diastolic? dysfunction? 2. Normal cardiac valvular Doppler ? 3. Normal RV systolic pressure ? 4. No pericardial effusion ? ?? Assessment and Plan Assessment Anesthesia Assessment: Chart Reviewed Final Anesthetic Review Family History of Problems with Anesthesia: No History of Problems with Anesthesia: No Documented by User: Kamille Gregory MD 12/18/21 12:46 PMFSH Past Medical History Medical History Cataract Colon cancer (~2010) Current non-adherence to medical treatment Diabetes type 2, uncontrolled Diabetic nephropathy associated with type 2 diabetes mellitus 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 Emanuel's disease Hypertension [facility] (current) use of insulin Non-toxic multinodular goiter Vitamin D deficiency Family History Family History Maternal Aunt Esophageal cancer Breast cancer Brother Colon cancer Diabetes Brother Colon cancer Father Diabetes Sister Diabetes Sister Diabetes Surgical History Surgical History H/O colonoscopy H/O total hysterectomy History of kidney surgery Hx of breast reduction, elective Hx of tonsillectomy Social History Social History Household Members: None Housing: Apartment Alcohol intake: never Patient Tobacco Use Status: Never used Tobacco Second Hand Smoke Exposure: No Use of substances other than those prescribed or required for medical reasons: No Are you DNR?: No Advance Directives: No Advance Directives Information Provided: Yes Advance Directives on File: No Current occupational status: disabled 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 Meds Allergies Allergy/AdvReac Type Severity Reaction Status Date / Time leal [LEAL] Allergy Severe ANAPHYLAXIS Verified 10/01/21 14:11 cucumber Allergy Severe Shortness Verified 10/01/21 14:11 of Breath metoclopramide [From Reglan] Allergy Severe SEIZURE-LIKE Verified 10/01/21 14:11 ACTIVITIES oxycodone [From PERCOCET] Allergy Mild ITCHING Verified 10/01/21 14:11 Penicillins Allergy Mild UNKNOWN Verified 10/01/21 14:11 Home Medications Medication Instructions Recorded Confirmed Last Taken Type albuterol sulfate 90 mcg/actuation 2 puff inhalation Q4-6H PRN 03/11/20 10/01/21 08/11/21 09:00 History aerosol inhaler (Ventolin HFA) Wheezing lorazepam 1 mg tablet 1 tab PO BID PRN anxiety 03/11/20 10/01/21 Unknown History omeprazole 20 mg capsule,delayed 1 cap PO BID 03/11/20 10/01/21 Unknown History release acetaminophen 300 mg-codeine 30 mg 1 tab PO TID PRN Pain 03/25/20 10/01/21 Unknown History tablet albuterol sulfate 2.5 mg/3 mL mg inhalation 03/25/20 10/01/21 Unknown History (0.083 %) solution for nebulization diclofenac sodium 1 % topical gel 2 g topical QID 03/25/20 10/01/21 Unknown History hydrochlorothiazide 12.5 mg tablet 12.5 mg PO DAILY 03/25/20 10/01/21 Unknown History lidocaine 5 % topical ointment topical 03/25/20 10/01/21 Unknown History lisinopril 40 mg tablet 40 mg PO DAILY 03/25/20 10/01/21 08/11/21 09:00 History bupropion HCl 300 mg 24 hr tablet, 300 mg PO 05/15/20 10/01/21 Unknown History extended release fluticasone propionate 110 1 puff PO BID 05/14/21 10/01/21 Unknown History mcg/actuation HFA aerosol inhaler (Flovent HFA) guaifenesin 100 mg/5 mL oral liquid 200 mg PO Q4H PRN 05/14/21 10/01/21 Unknown History dapagliflozin 10 mg tablet 10 mg PO DAILY 07/16/21 10/01/21 Unknown History (Farxiga) fluticasone propionate 50 spray intranasal 07/16/21 10/01/21 Unknown History mcg/actuation nasal spray,suspension hydrocortisone-acetic acid 1 %-2 % 2 drp otic (ears) QID 07/16/21 10/01/21 Unknown History ear drops tizanidine 4 mg tablet 4 mg PO Q6-8H PRN 07/16/21 10/01/21 Unknown History bisacodyl 5 mg tablet (Laxative 0 mg PO 08/25/21 10/01/21 Unknown History (bisacodyl)) psyllium husk (aspartame) 3.4 g PO DAILY 08/25/21 10/01/21 Unknown History gram/5.8 gram oral powder (Wal-Mucil Fiber (aspartame)) Exam Airway Mallampati Class: II TM Dist: >3cm Neck ROM: Full Heart: rrr Lungs: cta Assessment and Plan Assessment Anesthesia Assessment: Anesthesia Plan Discussed and Chart Reviewed Final Anesthetic Review NPO: Yes ASA Class: III Final Preanesthetic Review: No Changes in Pt Med Stat, Meds/Allgs Chart Reviewed and Consent Obtained/Reviewed Patient Risk: Intermediate Procedure Risk: Intermediate Anesthetic Plan Anesthetic Plan: MAC: Disposition: Standard PACU
[2021-12-18 11:29] VITALS: BP 146/51; PULSE 82; RESP 18; TEMP 36.5; O2SAT 99
[2021-12-18] MEDS: Lactated Ringers 1,000 ML 100 ML IVCONT (11:42)
[2021-12-18 11:45] LABS: Glucose, Whole Blood 212 mg/dL (60-115)
--- NOTE | 2021-12-18 12:09 | P.HPSUR_ITS ---
Pre-Procedural Eval Section A Date of Service: 12/18/21 The patient is an INPATIENT: No The History & Physical has been completed within 30 days and I have reviewed it.: No Section B Chief Complaint: reflux disease,constipation,upper quadrant pain Details of Present Illness: colon cancer screening, history of colon cancer, GERD, right upper quadrant pain Relevant Family History (Specify if Yes): Yes Relevant Social History: None Present Medications: see Short Stay Collaborative assessment Medical History: Significant History (Cataract Colon cancer (~2010) Current non- adherence to medical treatment Diabetes type 2, uncontrolled Diabetic nephropathy associated with type 2 diabetes mellitus 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 Emanuel's disease 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 Non-toxic multinodular goiter Vitamin D deficiency) History of Previous Operations: Relevant previous surgery/procedure and date(s) (H/O colonoscopy H/O total hysterectomy Hx of breast reduction, elective Hx of tonsillectomy) Allergies: Allergies Allergy/AdvReac Type Severity Reaction Status Date / Time suarez [SUAREZ] Allergy Severe ANAPHYLAXIS Verified 10/01/21 14:11 cucumber Allergy Severe Shortness Verified 10/01/21 14:11 of Breath metoclopramide [From Reglan] Allergy Severe SEIZURE-LIKE Verified 10/01/21 14:11 ACTIVITIES oxycodone [From PERCOCET] Allergy Mild ITCHING Verified 10/01/21 14:11 Penicillins Allergy Mild UNKNOWN Verified 10/01/21 14:11 Review of Systems Sugical H&P ROS: Negative: Constitution, Cardiovascular and Respiratory and Yes, Specify: Gastrointestinal (diarrhea) Exam Surgical H&P Exam: Normal: Heart, Normal: Lungs, Normal: Extremities and Normal: Abdomen Plan Diagnosis/Plan: Unchanged I have reviewed the history and physical and performed a pertinent physical examination on my patient. No changes have occurred unless specified.
--- NOTE | 2021-12-18 12:48 | PM.OP ---
Brief Operative Note Date of Service: 12/18/21 Pre-op diagnosis: Colon cancer screening, follow-up of colon cancer, abdominal pain Post-op diagnosis: other (Gastritis, gastric polyp, esophageal nodule, colon polyps, diverticulosis, hemorrhoids) Procedure: FLEXIBLE TRANSORAL UPPER GASTROINTESTINAL ENDOSCOPY WITH BIOPSIES AND COLONOSCOPY TILL CECUM WITH BIOPSIES, SNARE POLYPECTOMY, SUBMUCOSAL INJECTION AND HEMOCLIP PLACEMENT UPPER ENDOSCOPY Consent: Indications for the procedure and potential complications of bleeding, perforation, reaction to medications and missed diagnosis were discussed with the patient and informed consent was obtained. Instrument: Olympus GIF H 190 mid size upper endoscope Monitoring: Vital signs and clinical assessment, continuous EKG monitoring, Pulse oximetry, Carbon Dioxide monitoring and blood pressure monitoring were done throughout the procedure. Procedure: The patient was placed in the left lateral decubitis position and pre-procedure medications were administered and a bite block was placed. The endoscope was inserted into the mouth and advanced under direct vision to the third part of duodenum. A careful inspection was made as the upper endoscope was withdrawn including a retroflexed examination of the proximal stomach; Findings and interventions are described below. Findings: Larynx: Normal Esophagus: A 1 cms benign appearing nodule in the distal esophagus at 30 cms - biopsied. GE junction at 32 cms, small hiatal hernia 32 to 34 cms. No esophagitis or Rick?s. Stomach: Moderate diffuse gastric erythema with nodular and varigated appearing gastric mucosa and prominent gastric folds in the body of the stomach. Biopsies were obtained from gastric antrum and body. A 4-5 mm benign appearing polyp in the prepyloric area - biopsied. Grade 2 flap valve on retroflexed examination of the cardia. Duodenum: Normal bulb and descending duodenum. Intervention: Biopsies as noted above COLONOSCOPY PROCEDURE NOTE Consent: Indications for the procedure and potential complications of bleeding, perforation, reaction to medications and missed diagnosis were discussed with the patient and informed consent was obtained. Instrument: Olympus PCF H 190 L variable stiffness pediatric colonoscope Monitoring: Vital signs and clinical assessment, intermittent blood pressure monitoring, continuous EKG monitoring, Pulse oximetry and Carbon Dioxide monitoring were done throughout the procedure. Colon withdrawl time was 26 minutes. Procedure: The patient was placed in the left lateral decubitis position and pre-procedure medications were administered. After a digital rectal examination of the ano-rectum, the video colonoscope was inserted into the rectum and advanced through the colon to the cecum. The colonoscope was slowly withdrawn in a retrograde panoramic fashion and the colon mucosa was carefully examined including a retroflexed view of the rectum. Findings and interventions are described below. Procedure Difficulty: : Without difficulty Findings: Terminal Ileum: Not evaluated Cecum: A 1 x 2 cms flat polyp raised with 7 cc of Orise solution and removed with a hot snare Ascending Colon: A 2 x 2.5 cms flat polyp in mid AC at 65 cms - raised with 8 cc of orise solution and removed with a hot snare. Polypectomy site closed with a hemoclip and maked with denzel ink. Transverse Colon: A 5-6 mm sessile polyp - removed with a cold biopsy Descending Colon: moderate diverticulosis Sigmoid Colon: Moderate diverticulosis Rectum: A 10-12 mm sessile polyp removed with a hot snare Ano-rectum: Moderate internal hemorrhoids Colon preparation: [Excellent] [Good] [Fair] [poor] Impression and Post Procedure Diagnosis: Endoscopy Findings: ESOPHAGUS: A 1 cms benign appearing nodule in the distal esophagus at 30 cms - biopsied. GE junction at 32 cms, small hiatal hernia 32 to 34 cms. No esophagitis or Rick?s. STOMACH: Moderate diffuse gastric erythema with nodular and varigated appearing gastric mucosa and prominent gastric folds in the body of the stomach. Biopsies were obtained from gastric antrum and body. A 4-5 mm benign appearing polyp in the prepyloric area - biopsied. Colonoscopy Findings: Four medium to large sized polyps removed Moderate diverticulosis seen in the left colon Moderate hemorrhoids on retroflexed exam. Plan: Await pathology results Patient has an appointment on 01/14/22 in the [facility] Clinic with Rainer Min M.D.. Repeat Colonoscopy interval based on path results - in 1-2 years if polyps are adenomatous and 5 years if polyps are hyperplastic (due to personal hx of colon cancer). Above findings were reviewed with the patient and colon polyps and diverticulosis handouts were given in the discharge area Surgeon: Rainer Min MD Anesthesia: MAC (Dr. Márquez) Was an Swine Genetics Researcher used for this Procedure?: Yes Swine Genetics Researcher: May Sidhu Estimated blood loss (mL): 0 Pathology: other (A. gastric antrum bxs, R/O H. pylori B. gastric antrum polyp C. gastric body bxs D. nodule distal esophagus E. cecal polyp with O-Rise F. ascending colon polyp with O-Rise ) Condition: stable Disposition: PACU
[2021-12-18 13:50] VITALS: BP 83/40; PULSE 83; RESP 16; TEMP 36.6; O2SAT 96
--- NOTE | 2021-12-18 13:56 | W.PM.OPN ---
Operative Note Operative Note Date of Service: 12/18/21 Narrative: Pre-op diagnosis: Colon cancer screening, follow-up of colon cancer, abdominal pain Post-op diagnosis:?other (Gastritis, gastric polyp, esophageal nodule, colon polyps, diverticulosis, hemorrhoids) Procedure: FLEXIBLE TRANSORAL UPPER GASTROINTESTINAL ENDOSCOPY WITH BIOPSIES AND COLONOSCOPY TILL CECUM WITH BIOPSIES, SNARE POLYPECTOMY, SUBMUCOSAL INJECTION AND HEMOCLIP PLACEMENT UPPER ENDOSCOPY Consent:?Indications for the procedure and potential complications of bleeding, perforation, reaction to medications and missed diagnosis were discussed with the patient and informed consent was obtained. Instrument:?Olympus GIF H 190 mid size upper endoscope Monitoring: Vital signs and clinical assessment, continuous EKG monitoring, Pulse oximetry, Carbon Dioxide monitoring and blood pressure monitoring were done throughout the procedure. Procedure:?The patient was placed in the left lateral decubitis position and pre-procedure medications were administered and a bite block was placed. The endoscope was inserted into the mouth and advanced under direct vision to the third part of duodenum. A careful inspection was made as the upper endoscope was withdrawn including a retroflexed examination of the proximal stomach; Findings and interventions are described below. Findings: Larynx:? Normal Esophagus: A 1 cms benign appearing nodule in the distal esophagus at 30 cms - biopsied.? GE junction at 32 cms, small hiatal hernia 32 to 34 cms. No esophagitis or Rick?s. Stomach: Moderate diffuse gastric erythema with nodular and varigated appearing gastric mucosa and prominent gastric folds in the body of the stomach. Biopsies were obtained from gastric antrum and body. A 4-5 mm benign appearing polyp in the prepyloric area - biopsied. Grade 2 flap valve on retroflexed examination of the cardia. Duodenum: Normal bulb and descending duodenum. Intervention:?Biopsies as noted above COLONOSCOPY PROCEDURE NOTE Consent:?Indications for the procedure and potential complications of bleeding, perforation, reaction to medications and missed diagnosis were discussed with the patient and informed consent was obtained. Instrument:?Olympus PCF H 190 L variable stiffness pediatric colonoscope Monitoring:?Vital signs and clinical assessment, intermittent blood pressure monitoring, continuous EKG monitoring, Pulse oximetry and Carbon Dioxide monitoring were done throughout the procedure. Colon withdrawl time was 26 minutes. Procedure:?The patient was placed in the left lateral decubitis position and pre-procedure medications were administered. After a digital rectal examination of the ano-rectum, the video colonoscope was inserted into the rectum and advanced through the colon to the cecum. The colonoscope was slowly withdrawn in a retrograde panoramic fashion and the colon mucosa was carefully examined including a retroflexed view of the rectum. Findings and interventions are described below. Procedure Difficulty:?: Without difficulty Findings: Terminal Ileum: Not evaluated Cecum:? A 1 x 2 cms flat polyp raised with 7 cc of Orise solution and removed with a hot snare Ascending Colon:??A 2 x 2.5 cms flat polyp in mid AC at 65 cms - raised with 8 cc of orise solution and removed with a hot snare.? Polypectomy site closed with a hemoclip and maked with denzel ink. Transverse Colon:??A 5-6 mm sessile polyp - removed with a cold biopsy Descending Colon: ? moderate diverticulosis Sigmoid Colon:??Moderate diverticulosis Rectum:??A 10-12 mm sessile polyp? removed with a hot snare Ano-rectum:??Moderate internal hemorrhoids Colon preparation: [Excellent] [Good] [Fair] [poor] Impression and Post Procedure Diagnosis: Endoscopy Findings: ESOPHAGUS: A 1 cms benign appearing nodule in the distal esophagus at 30 cms - biopsied.? GE junction at 32 cms, small hiatal hernia 32 to 34 cms. No esophagitis or Rick?s. STOMACH: Moderate diffuse gastric erythema with nodular and varigated appearing gastric mucosa and prominent gastric folds in the body of the stomach. Biopsies were obtained from gastric antrum and body. A 4-5 mm benign appearing polyp in the prepyloric area - biopsied. Colonoscopy Findings: Four medium to large sized polyps removed Moderate diverticulosis seen in the left colon Moderate hemorrhoids on retroflexed exam. Plan: Await pathology results Patient has an appointment on 01/14/22 in the GI Clinic with Rainer Min M.D.. Repeat Colonoscopy interval based on path results - in 1-2 years if polyps are adenomatous and 5 years if polyps are hyperplastic (due to personal hx of colon cancer). Above findings were reviewed with the patient and colon polyps and diverticulosis handouts were given in the discharge area Surgeon: Rainer Min MD Anesthesia:?MAC (Dr. Márquez) Was an House Wirer Helper used for this Procedure?:?Yes House Wirer Helper:?May Sidhu Estimated blood loss (mL):?0 Pathology:?other (A. gastric antrum bxs, R/O H. pylori? B. gastric antrum polyp? C. gastric body bxs? D. nodule distal esophagus? E. cecal polyp with O-Rise? F. ascending colon polyp with O-Rise? ? ) Condition:?stable Disposition:?PACU
[2021-12-18 14:05] VITALS: BP 115/51; PULSE 80; RESP 16; TEMP 36.6; O2SAT 99
== END 2021-12-18 14:40 | disposition home or self-care (01) ==
PROVIDERS: PCP Family Medicine; Visit Provider Internal Medicine Gastroenterology
PROC: (CPT 45385; principal; 2021-12-18 12:50)
DX: Z12.11 Encounter for screening for malignant neoplasm of colon (principal); Z85.038 Personal history of other malignant neoplasm of large intestine; K63.5 Polyp of colon; K62.1 Rectal polyp; K57.30 Diverticulosis of large intestine without perforation or abscess without bleeding; K64.8 Other hemorrhoids; K59.09 Other constipation; K29.50 Unspecified chronic gastritis without bleeding; K21.9 Gastro-esophageal reflux disease without esophagitis; K22.89 Other specified disease of esophagus; K31.7 Polyp of stomach and duodenum; K44.9 Diaphragmatic hernia without obstruction or gangrene; K76.0 Fatty (change of) liver, not elsewhere classified; I10 Essential (primary) hypertension; D50.9 Iron deficiency anemia, unspecified; E78.00 Pure hypercholesterolemia, unspecified; J45.909 Unspecified asthma, uncomplicated; E66.01 Morbid (severe) obesity due to excess calories; Z68.38 Body mass index [BMI] 38.0-38.9, adult; F32.9 Major depressive disorder, single episode, unspecified; E11.9 Type 2 diabetes mellitus without complications; Z79.4 Long term (current) use of insulin; Z79.51 Long term (current) use of inhaled steroids; Z79.899 Other long term (current) drug therapy; Z88.0 Allergy status to penicillin; Z88.8 Allergy status to other drugs, medicaments and biological substances; Z87.442 Personal history of urinary calculi
CPT/HCPCS: 45385; 45380; 45381; 43239; 82947; 88305; 88342; J3010

== ENCOUNTER → 2021-12-30 11:25 | Outpatient (BNVA) | payer OTHER, SELFPAY | PROVIDERS: PCP Family Medicine; Visit Provider Urology | DX: C64.1 Malignant neoplasm of right kidney, except renal pelvis (principal) | CPT/HCPCS: Q3014 ==

== ENCOUNTER → 2022-01-14 10:08 | Outpatient (BNVA) | payer OTHER, SELFPAY | PROVIDERS: PCP Family Medicine; Referring Provider Family Medicine; Visit Provider Internal Medicine Gastroenterology | DX: R10.11 Right upper quadrant pain (principal); K21.9 Gastro-esophageal reflux disease without esophagitis; K59.09 Other constipation; K29.40 Chronic atrophic gastritis without bleeding; R13.10 Dysphagia, unspecified; Z85.038 Personal history of other malignant neoplasm of large intestine | CPT/HCPCS: 99212 ==

== ENCOUNTER 2022-01-15 09:41 | Outpatient (REF) | payer OTHER, SELFPAY ==
[2022-01-15 11:25] LABS: Appearance Urine Clear; Color Urine Yellow; Glucose Urine UA >=1000 mg/dL (Negative); Leukocyte Esterase Urine Trace (Negative); Nitrite Urine Negative (Negative); PH 5.5 (5.0-9.0); Specific Gravity - Urine >= 1.030 (1.005-1.025); UMIC TRIGGER UACC YES; Urine Blood Negative (Negative); Urine Ketones Negative (Negative); Urine Protein Negative (Neg-Trace)
[2022-01-15 11:31] LABS: Bacteria Urine None Seen (None Seen); Hyaline Casts Urine 0-2 /LPF (0-2); RBC Urine 0-2 /HPF (0-2); Squamous Epithelial Cell Urine 0-2 /HPF (0-2); UACC Culture Trigger YES
[2022-01-20 16:26] LABS: Gastrin 1983 pg/mL (<=100)
[2022-01-20 22:02] LABS: Intrinsic Factor Antibodies Negative (Negative)
[2022-01-21 23:32] LABS: Parietal Cell Antibody 65.3 Unit (<=20.0)
== END 2022-01-15 09:42 | disposition home or self-care (01) ==
LOC: HO.LAB 09:41
PROVIDERS: PCP Family Medicine; Visit Provider Internal Medicine Gastroenterology
DX: K29.40 Chronic atrophic gastritis without bleeding (principal)
CPT/HCPCS: 36415; 81001; 82941; 83516; 86340; 87086

== ENCOUNTER 2022-03-18 12:56 | Outpatient (REF) | payer OTHER, SELFPAY ==
--- NOTE | ~2022-03-18 | XR_ITS ---
EXAMINATION: XR SHOULDER, RIGHT CLINICAL INFORMATION: Pain in right shoulder. COMPARISON: None TECHNIQUE: AP external rotation, Grashey, scapular Y, and axillary views of the right shoulder. FINDINGS: There is loss of right AC joint space with periarticular spurring. There are enthesophytes along the lateral acromion. The glenohumeral joint space is reduced. No visible acute fracture, dislocation or subluxation seen. The soft tissues are normal. XR/XR shoulder RT min 2V IMPRESSION: Degenerative arthritic changes right acromioclavicular joint and glenohumeral joint. No visible acute fracture, dislocation or subluxation seen.
== END 2022-03-18 12:57 | disposition home or self-care (01) ==
LOC: HO.XRAY 12:56
PROVIDERS: Absent Provider Family Medicine; PCP Family Medicine; Visit Provider Internal Medicine
DX: M25.511 Pain in right shoulder (principal)
CPT/HCPCS: 73030

== ENCOUNTER → 2022-03-29 13:15 | Outpatient (BNVA) | payer OTHER, SELFPAY | PROVIDERS: PCP Family Medicine; Visit Provider Internal Medicine | DX: E11.65 Type 2 diabetes mellitus with hyperglycemia (principal); E04.2 Nontoxic multinodular goiter | CPT/HCPCS: 82947; 83036; 99212 ==

== ENCOUNTER → 2022-05-13 09:12 | Outpatient (BNVA) | payer OTHER, SELFPAY | PROVIDERS: Visit Provider Internal Medicine Gastroenterology | DX: K29.40 Chronic atrophic gastritis without bleeding (principal); K21.9 Gastro-esophageal reflux disease without esophagitis; R13.10 Dysphagia, unspecified; R10.11 Right upper quadrant pain; E16.4 Increased secretion of gastrin; C18.9 Malignant neoplasm of colon, unspecified | CPT/HCPCS: Q3014 ==

== ENCOUNTER 2022-05-25 11:01 | Outpatient (REF) | payer OTHER, SELFPAY ==
[2022-05-25 12:11] LABS: Appearance Urine Clear; Color Urine Yellow; Glucose Urine UA >=1000 mg/dL (Negative); Leukocyte Esterase Urine Negative (Negative); Nitrite Urine Negative (Negative); PH 5.5 (5.0-9.0); Specific Gravity - Urine >= 1.030 (1.005-1.025); UMIC TRIGGER UACC YES; Urine Blood Negative (Negative); Urine Ketones 15 mg/dL (Negative); Urine Protein Negative (Neg-Trace)
[2022-05-25 12:17] LABS: Bacteria Urine None Seen (None Seen); Hyaline Casts Urine 0-2 /LPF (0-2); RBC Urine 0-2 /HPF (0-2); Squamous Epithelial Cell Urine 0-2 /HPF (0-2); UACC Culture Trigger YES
[2022-05-28 22:29] LABS: Gastrin 1625 pg/mL (<=100)
== END 2022-05-25 11:02 | disposition home or self-care (01) ==
LOC: HO.LAB 11:01
PROVIDERS: PCP Family Medicine; Visit Provider Internal Medicine Gastroenterology
DX: E16.4 Increased secretion of gastrin (principal); R82.90 Unspecified abnormal findings in urine
CPT/HCPCS: 36415; 81001; 82941; 87086

== ENCOUNTER 2022-06-03 09:43 | Outpatient (REF) | payer OTHER, SELFPAY ==
--- NOTE | 2022-06-03 10:15 | PM.OP ---
Brief Operative Note Date of Service: 06/03/22 Pre-op diagnosis: Multinodular Thyroid Procedure: Patient presented for US of the thyroid with possible FNA biopsy today. US was performed which revealed 3 large nodules within the left lobe and 1 nodule within the R lobe meeting indication for FNA biopsy. The patient refused FNA biopsy today and is requesting this be completed under conscious sedation. Procedure was aborted. Surgeon: Linda Preston, DO Was an Dentures Lab Technician used for this Procedure?: No Estimated blood loss (mL): 0
== END 2022-06-03 09:44 | disposition home or self-care (01) ==
LOC: HO.US 09:43
PROVIDERS: Visit Provider Internal Medicine
DX: E04.2 Nontoxic multinodular goiter (principal)
CPT/HCPCS: 76536

== ENCOUNTER 2022-06-18 10:07 | Outpatient (REF) | payer OTHER, SELFPAY ==
--- NOTE | ~2022-06-18 | US_ITS ---
EXAMINATION: US RETROPERITONEAL LIMITED (RENAL ONLY) CLINICAL INFORMATION: Malignant neoplasm of unspecified kidney, except renal pelvis. COMPARISON: CT abdomen 12/01/2021. Renal ultrasound 12/25/2020. X-ray abdomen KUB 04/07/2018 and 05/08/2013. Ultrasound abdomen complete 12/19/2013. TECHNIQUE: Real-time imaging of the kidneys. FINDINGS: RIGHT KIDNEY: 10.3 x 5.4 x 4.2 cm (SAG x AP x TRV). History of cryoablation in the lower right kidney with a nonspecific incompletely characterized masslike iso to hyperechoic observation measuring 1.4 x 1.6 x 1.4 cm. No hydronephrosis or nephrolithiasis. LEFT KIDNEY: 11.3 x 5.0 x 3.5 cm (SAG x AP x TRV). There are couple of simple cysts for which no imaging follow-up is recommended. There is a nonspecific isoechoic observation with convex margins in the lateral surface of the interpolar region measuring 1.6 x 1.4 x 1.8 cm. No nephrolithiasis. Mild pelvic fullness without calyectasis. US/US renal BI IMPRESSION: 1. History of cryoablation in the lower pole of the right kidney with a nonspecific masslike observation measuring up to 1.6 in the region of the postoperative changes, that could potentially be related with previously seen post treatment cavity, although incompletely assessed. Recommend correlation with a CT abdomen or preferable MRI abdomen with and without intravenous contrast. 2. Nonspecific isoechoic observation in the lateral surface of the interpolar region of the left kidney measuring up to 1.8, likely representing normal variation of the cortex. This could also be assessed with the above recommended study. 3. Mild fullness of the left renal pelvis without calyectasis.
== END 2022-06-18 10:08 | disposition home or self-care (01) ==
LOC: HO.US 10:07
PROVIDERS: Visit Provider Urology
DX: C64.9 Malignant neoplasm of unspecified kidney, except renal pelvis (principal)
CPT/HCPCS: 76775

== ENCOUNTER 2022-06-23 10:18 | Outpatient (REF) | payer OTHER, SELFPAY ==
--- NOTE | ~2022-06-23 | XR_ITS ---
EXAMINATION: XR CERVICAL SPINE CLINICAL INFORMATION: Neck pain with history of cancer COMPARISON: 03/10/2020 TECHNIQUE: 5 views of the cervical spine FINDINGS: There is no acute fracture or subluxation. The vertebral bodies and posterior elements are anatomically aligned. Vertebral body heights and intervertebral disc spaces are maintained. Tiny endplate osteophytes present. No bony neuroforaminal narrowing. The atlantoaxial joint is appropriately aligned. The prevertebral soft tissues are unremarkable. The lung apices are clear. XR/XR cervical spine 5V IMPRESSION: Mild degenerative changes of the cervical spine.
--- NOTE | ~2022-06-23 | XR_ITS ---
EXAMINATION: XR THORACOLUMBAR SPINE CLINICAL INFORMATION: Chronic thoracic back pain. History of malignancy. COMPARISON: None TECHNIQUE: 2 views, 4 images of the thoracic spine. FINDINGS: No fracture or subluxation. Vertebral body height and alignment maintained. Disc spaces are maintained with multilevel endplate osteophytes. No osseous lesion. The paravertebral soft tissues are unremarkable. The visualized lungs are clear. Right upper quadrant surgical clips. XR/XR thoracic spine 2V IMPRESSION: Mild to moderate multilevel degenerative changes of the thoracic spine.
== END 2022-06-23 10:19 | disposition home or self-care (01) ==
LOC: HO.XRAY 10:18
PROVIDERS: PCP Family Medicine; Visit Provider Registered Nurse
DX: M54.2 Cervicalgia (principal); M54.6 Pain in thoracic spine; G89.29 Other chronic pain
CPT/HCPCS: 72050; 72070

== ENCOUNTER 2022-06-28 08:42 | Day surgery (SDC) | payer OTHER, SELFPAY ==
--- NOTE | ~2022-06-28 | US_ITS ---
EXAMINATION: ULTRASOUND-GUIDED RIGHT NODULE BIOPSY CLINICAL INFORMATION: Nontoxic multinodular goiter. COMPARISON: Ultrasound thyroid 07/02/2021. TECHNIQUE: Following explaining ultrasound-guided right, 2 upper midpole thyroid nodule biopsy procedure, benefits and risk, a written consent was obtained,. Patient was placed supine on ultrasound stretcher and preliminary ultrasound imaging was obtained through anterior neck. All 3 nodules were marked on the skin. The entire anterior neck was cleaned and draped in usual sterile manner. 1% lidocaine was inserted at the marked site along the anterior skin of the right and left neck. Under ultrasound guidance a 25-gauge needle attached to syringe was advanced from the skin into the right upper pole nodule and a 3 pass fine-needle biopsy is performed. Subsequently, a 3 pass biopsy nodule was performed along the midpole of superficial and deep thyroid nodules. Postprocedure the needles were removed and complete hemostasis achieved at puncture site. Patient tolerated procedure extremely well. Conscious sedation was utilized during the exam for 30 minutes and patient monitored by IR nursing and IR physician. FINDINGS: On pulmonary ultrasound imaging, there is a solid appearing nodule right upper pole adjacent to the carotid artery. There are 2 mixed density nodules in the superficial and deep midpole left thyroid lobe. 3 pass biopsy of each of these nodules were performed. Immediate slight evaluation by pathology revealed adequate tissue. Definite results are pending. US/US biopsy thyroid IMPRESSION: Successful ultrasound-guided thyroid nodule biopsy performed as described above. There were no immediate complications.
[2022-06-28 09:35] LABS: Glucose, Whole Blood 145 mg/dL (60-115)
--- NOTE | 2022-06-28 09:38 | PC.NURSE ---
IV attempt by author. Attempt and insertion by fabián spence rn
[2022-06-28 09:39] VITALS: BP 149/64; PULSE 93; RESP 18; TEMP 36.6; O2SAT 98; BMI 33.6
[2022-06-28 09:39] LABS: MANUAL DIFF FLAG NO
[2022-06-28 09:43] LABS: Basophils Absolute Auto 0.1 X10*3/uL (0.0-0.2); Basophils Percent Auto 0.8 % (0-2); Eosinophils Absolute Auto 0.4 X10*3/uL (0.0-0.4); Eosinophils Percent Auto 4.7 % (0-4); Hematocrit 36.1 % (37.0-47.0); Hemoglobin 11.3 g/dl (12.0-16.0); Imm Gran Abs Auto 0.04 X10*3/uL (0.00-0.03); Imm Gran Pct Auto 0.5 % (0.0-0.4); Lymphocytes Absolute Auto 2.3 X10*3/uL (1.2-4.9); Lymphocytes Percent Auto 27.2 % (20-40); Mean Corpuscular HGB Conc 31.3 g/dl (31.0-35.0); Mean Corpuscular Hemoglobin 25.9 pg (27.0-33.0); Mean Corpuscular Volume 82.8 fL (80.0-98.0); Mean Platelet Volume 10.9 fL (9.4-12.3); Monocytes Absolute Auto 0.7 X10*3/uL (0.1-1.2); Monocytes Percent Auto 7.9 % (2-11); Neutrophils Percent Auto 58.9 % (45-73); Platelet Count 210 X10*3/uL (160-400); Red Blood Count 4.36 X10*6/uL (4.20-5.50); Red Cell Distribution Width 15.8 % (11.0-16.0); White Blood Count 8.5 X10*3/uL (4.8-10.8)
[2022-06-28 09:49] LABS: INTERNATIONAL NORM RATIO 0.9 (0.9-1.1)
[2022-06-28 09:52] LABS: Partial Thromboplastin Time 25.7 SEC (26.0-36.4)
[2022-06-28] MEDS: Lidocaine HCl 1 % MPF 5 ML VIAL SUBCUT (11:56)
[2022-06-28 12:00] VITALS: BP 125/52; PULSE 86; RESP 19; TEMP 36.7; O2SAT 95
[2022-06-28 12:15] VITALS: BP 113/49; PULSE 87; RESP 12; O2SAT 97
[2022-06-28 12:30] VITALS: BP 108/44; PULSE 83; RESP 20; O2SAT 96
[2022-06-28 12:45] VITALS: BP 127/58; PULSE 84; RESP 15; O2SAT 96
[2022-06-28 13:00] VITALS: BP 140/62; PULSE 83; RESP 17; TEMP 36.5; O2SAT 97
== END 2022-06-28 13:05 | disposition home or self-care (01) ==
PROVIDERS: Radiology Diagnostic Radiology; PCP Family Medicine; Visit Provider Internal Medicine
DX: E04.2 Nontoxic multinodular goiter (principal); E06.3 Autoimmune thyroiditis; E03.9 Hypothyroidism, unspecified; E11.65 Type 2 diabetes mellitus with hyperglycemia; E78.5 Hyperlipidemia, unspecified; I25.10 Atherosclerotic heart disease of native coronary artery without angina pectoris; E55.9 Vitamin D deficiency, unspecified; Z79.4 Long term (current) use of insulin; Z79.899 Other long term (current) drug therapy; Z88.0 Allergy status to penicillin; Z88.8 Allergy status to other drugs, medicaments and biological substances; Z85.038 Personal history of other malignant neoplasm of large intestine; Z85.528 Personal history of other malignant neoplasm of kidney; Z91.199 Patient's noncompliance with other medical treatment and regimen due to unspecified reason
CPT/HCPCS: 10005; 10006; 36415; 82947; 85025; 85610; 85730; 88172; 88173; 88177; 88305; 99152; J2250; J3010

== ENCOUNTER → 2022-06-29 13:10 | Outpatient (BNVA) | payer OTHER, SELFPAY | PROVIDERS: PCP Family Medicine; Visit Provider Urology | DX: C64.9 Malignant neoplasm of unspecified kidney, except renal pelvis (principal) | CPT/HCPCS: Q3014 ==

== ENCOUNTER → 2022-08-23 10:08 | Outpatient (BNVA) | payer OTHER, SELFPAY | PROVIDERS: PCP Family Medicine; Visit Provider Internal Medicine Gastroenterology | DX: K59.09 Other constipation (principal); K21.9 Gastro-esophageal reflux disease without esophagitis; K29.40 Chronic atrophic gastritis without bleeding; E16.4 Increased secretion of gastrin; R13.10 Dysphagia, unspecified; R10.11 Right upper quadrant pain | CPT/HCPCS: 99212 ==

== ENCOUNTER 2022-08-26 12:07 | Outpatient (REF) | payer OTHER, SELFPAY ==
--- NOTE | ~2022-08-26 | MR_ITS ---
EXAMINATION: MR THORACIC SPINE WITHOUT CONTRAST CLINICAL INFORMATION: Midline thoracic back pain, acute. COMPARISON: None TECHNIQUE: MRI of the thoracic spine was obtained using routine sequences without contrast. FINDINGS: The thoracic vertebral bodies maintain normal heights and alignment. There is no significant disc height loss. No bone marrow edema is seen. Mild anterior endplate osteophytes are noted. The cord signal appears normal. There is no disc herniation. No spinal canal or neural foraminal stenosis is seen. The known thyroid nodules are again demonstrated and status post biopsy. The extraspinal soft tissues are unremarkable. MR/MR thoracic spine wo con IMPRESSION: No significant abnormality identified in the thoracic spine. No disc height loss or marrow edema. No spinal canal or neural foraminal stenosis.
== END 2022-08-26 12:08 | disposition home or self-care (01) ==
LOC: HO.MRI 12:07
PROVIDERS: PCP Family Medicine; Visit Provider Family Medicine
DX: M54.6 Pain in thoracic spine (principal)
CPT/HCPCS: 72146

== ENCOUNTER → 2022-09-15 10:44 | Outpatient (BNVA) | payer OTHER, SELFPAY | PROVIDERS: PCP Family Medicine; Visit Provider Internal Medicine | DX: E04.2 Nontoxic multinodular goiter (principal) | CPT/HCPCS: 99212 ==

== ENCOUNTER 2022-11-30 12:14 | Outpatient (REF) | payer OTHER, SELFPAY ==
--- NOTE | ~2022-11-30 | US_ITS ---
EXAMINATION: US RETROPERITONEAL LIMITED (RENAL ONLY) CLINICAL INFORMATION: Malignant neoplasm of unspecified kidney, except renal pelvis. COMPARISON: Ultrasound renal bilateral 06/18/2022 and 12/25/2020. CT abdomen 12/01/2021 . TECHNIQUE: Real-time imaging of the kidneys. FINDINGS: RIGHT KIDNEY: 11.2 x 5.5 x 5.8 cm (SAG x AP x TRV). The kidney is normal in size, contour, and echogenicity. Renal cortical thickness is normal. No renal calculi. Subcentimeter likely benign renal cyst with mural calcification, no follow-up imaging recommended. Pelviectasis without carlos hydronephrosis. A 1.9 x 1.4 x 1.5 cm lower pole soft tissue lesion without definite internal vascularity, previously 1.4 x 1.6 x 1.4 cm. LEFT KIDNEY: 10.8 x 5.0 x 4.5 cm (SAG x AP x TRV). The kidney is normal in size, contour, and echogenicity. Renal cortical thickness is normal. No renal calculi. Mild left hydronephrosis new from prior. Benign-appearing renal cysts measuring up to 1.1 cm. No follow-up imaging is recommended. US/US renal BI IMPRESSION: 1. A 1.9 cm lower pole soft tissue lesion without definite internal vascularity, possibly corresponding to the prior cryoablation site however given increased from prior recommend CT or MR renal mass protocol to assess for any locally recurrent disease. 2. Right renal pelviectasis without carlos hydronephrosis. Mild left hydronephrosis new from prior.
== END 2022-11-30 12:15 | disposition home or self-care (01) ==
LOC: HO.US 12:14
PROVIDERS: PCP Family Medicine; Visit Provider Urology
DX: C64.9 Malignant neoplasm of unspecified kidney, except renal pelvis (principal)
CPT/HCPCS: 76775

== ENCOUNTER 2022-12-21 15:11 | Outpatient (REF) | payer OTHER, SELFPAY ==
--- NOTE | ~2022-12-21 | MR_ITS ---
EXAMINATION: MR ABDOMEN WITHOUT AND WITH CONTRAST CLINICAL INFORMATION: Increased gastric secretion, evaluate for gastrinoma. COMPARISON: CT abdomen 12/01/2021. TECHNIQUE: MR abdomen was performed without and with use of 7.5 mL intravenous Gadavist gadolinium contrast. Imaging was performed in 3 planes. Postcontrast images are performed in multiphase dynamic sequences; only postcontrast axial images were obtained. No post contrast coronal nor sagittal images are available. FINDINGS: LUNG BASES: The visualized lung bases are unremarkable. LIVER, GALLBLADDER, AND BILIARY TREE: There is signal loss in the [id number] dual-echo images most suggestive of hepatic steatosis. The liver is otherwise normal in size and shape. There is a peripheral region of arterial phase hyperenhancement in the posterior right hepatic lobe (image 40 series 101), not visualizing in the other sequences favoring to represent a transient perfusional abnormality. PANCREAS: Homogeneous signal intensity. No discrete focal lesion. No main duct dilatation. No peripancreatic free fluid or fat stranding. SPLEEN: Normal size. No focal lesion. ADRENAL GLANDS: A 1 cm left adrenal nodule is unchanged dating back to 11/14/2020, demonstrating signal loss in the out of phase dual echo images which is most consistent with an adenoma. Normal right adrenal gland. KIDNEYS AND URETERS: A 1.2 cm previously cryoablated lesion in the lower pole the right kidney is unchanged. A few T2 bright avascular simple cysts are noted bilaterally for which no imaging followup is recommended. No new enhancing lesion. GASTROINTESTINAL TRACT: No bowel obstruction. No ascites or fluid collection. ABDOMINAL WALL: No significant hernia is appreciated. LYMPH NODES: No lymphadenopathy. VASCULAR: Normal caliber abdominal aorta. OSSEOUS STRUCTURES: No aggressive-appearing osseous lesions. MR/MR abdomen wo/w con IMPRESSION: 1. No discrete MR evidence to suspect gastrinoma, however evaluation of the duodenum is somewhat limited due to underdistention and motion. Because gastrinoma often have abundant somatostatin receptors, further evaluation with nuclear medicine study (PET Dotatate) could be helpful in detection of an occult lesion. 2. Stable previously cryoablated lesion in the lower pole of the right kidney. 3. Hepatic steatosis.
[2022-12-21] MEDS: gadobutroL 7.5 ML VIAL IVPUSH (16:51)
== END 2022-12-21 15:12 | disposition home or self-care (01) ==
LOC: HO.MRI 15:11
PROVIDERS: PCP Family Medicine; Visit Provider Internal Medicine Gastroenterology
DX: E16.4 Increased secretion of gastrin (principal)
CPT/HCPCS: 74183; A9585

== ENCOUNTER 2022-12-24 12:28 | Outpatient (AMB) | payer OTHER, SELFPAY ==
--- NOTE | 2022-12-24 12:35 | A.OFFVIS_ITS ---
Intake Intake Visit Reasons: 6m/US(set) Intake Note: Patient presents today for a follow-up on US Results: Meds- None Allergies to Antibiotic- No Known Allergies Blood Thinner- None Apartment Rental Clerk Required: No Accompanied by: Self / Same As Patient Allergies leal [LEAL] Allergy (Severe, Verified 09/15/22 11:00) ANAPHYLAXIS cucumber Allergy (Severe, Verified 09/15/22 11:00) Shortness of Breath metoclopramide [From Reglan] Allergy (Severe, Verified 09/15/22 11:00) SEIZURE-LIKE ACTIVITIES Penicillins Allergy (Severe, Verified 09/15/22 11:00) Anaphylaxis oxycodone [From PERCOCET] Allergy (Mild, Verified 09/15/22 11:00) ITCHING HPI HPI Comments History of Present Illness Details Claudia is a pleasant female. Maldivian speaker. She is a patient of Dr. Carrillo. She is seen for following urologic conditions - renal cancer Ultrasound stable scarring from cryotherapy Repeat MRI performed which showed scarring right kidney Baseline has glucose in urine form diabetic management Following with Endocrinology Renal mass cryotherapy performed July 2021 Probable right renal lower pole 1.4 cm mass detected incidentally Evaluation for prior colon cancer Imaging - 05/23 right lower pole 1.4 cm exophytic mass suspicious for renal cancer - 12/21 CT right lower pole 1.5 cm scarring from prior cryotherapy - 06/24 renal ultrasound right lower pole scarring, left side small cyst - 12/22 MRI scarring prior cryotherapy right lower pole Laboratory investigations - 12/21 Cr 0.8 Cryotherapy July 2021 single needle 2 cycle Pathology Clear cell carcinoma Samm grade 2 Therapeutic plan 6m renal US PFSH Medical History Cataract Colon cancer (~2010) Current non-adherence to medical treatment Diabetes type 2, uncontrolled Diabetic nephropathy associated with type 2 diabetes mellitus 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 Emanuel's disease Hypertension correction (current) use of insulin Non-toxic multinodular goiter Vitamin D deficiency Surgical History H/O colonoscopy H/O total hysterectomy History of esophagogastroduodenoscopy (EGD) History of kidney surgery Hx of breast reduction, elective Hx of tonsillectomy Family History Maternal Aunt Esophageal cancer Breast cancer Brother Colon cancer Diabetes Brother Colon cancer Father Diabetes Sister Diabetes Sister Diabetes Social History Household Members: None Housing: Apartment Alcohol intake: never Patient Tobacco Use Status: Never used Tobacco Second Hand Smoke Exposure: No Current occupational status: disabled 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 Review of Systems Const Denies chills and Denies fever(s) Card Reports no additional complaints and Denies syncope Resp Denies cough GI Denies abdominal pain and Denies heartburn Reports as per HPI and Denies change in libido Neuro Denies syncope Psych Denies change in libido Endo Denies change in libido Physical Exam Const General: cooperative, healthy appearing, comfortable and no acute distress Orientation/consciousness: patient oriented x3 HEENT Face and sinus: Yes normal facial exam Mouth: moist mucous membranes Neck Neck: Yes normal visual inspection, Yes full ROM and Yes trachea midline Chest Chest palpation & inspection: normal inspection of the chest Resp Effort & Inspection: normal respiratory effort, able to speak in complete sentences and no respiratory distress GI Inspection: Yes normal to inspection Back/Spine/Pelvis Cervical Spine: normal cervical lordosis Thoracic/Lumbar Spine: thoracic and lumbar spine normal to inspection Skin General skin exam: no rashes or lesions noted Neuro General: patient oriented x3, gait normal, tone normal and moves all extremities Extrem General: Yes normal to inspection and Yes capillary refill normal Assessment & Plan Assessment & Plan (1) Renal cell cancer: Comment: 08/21 Right cryotherapy Skyler 1 Code(s): C64.9 - Malignant neoplasm of unspecified kidney, except renal pelvis Plan Six month follow-up imaging Patient Instructions: Imaging studies, laboratory and physical exam results were discussed and reviewed in detail. No major barriers to patient understanding were identified. An opportunity to ask questions regarding the treatment plan was provided. All questions were answered. The patient expressed understanding and agreement with the above treatment plan. The patient is aware they should contact our office by phone for worsening of their current condition or the appearance of new urologic symptoms. Compliance is encouraged with any medications and followup testing that is ordered. It is a privilege to participate in the urologic care of your patient. If you have any questions or concerns regarding treatment for the above conditions, or other urologic issues, please do not hesitate to contact me. The office telephone contact is [phone]. This note is constructed using voice recognition software. While every effort has been made to ensure accuracy musical instrument maker errors may have been included. Yours sincerely, Dr Taras Chavez MD, [facility] - Urology Providers of Expert, Compassionate Care for the Genitourinary System Coding Level of Care Code Est Pt Level 3 (99684) Diagnoses Renal cell cancer C64.9
== END 2022-12-24 13:18 | disposition home or self-care (01) ==
PROVIDERS: PCP Family Medicine; Visit Provider Urology
DX: Z13.9 Encounter for screening, unspecified (principal); C64.9 Malignant neoplasm of unspecified kidney, except renal pelvis
CPT/HCPCS: 99213

== ENCOUNTER → 2022-12-24 12:28 | Outpatient (BNVA) | payer OTHER, SELFPAY | PROVIDERS: Visit Provider Urology | DX: C64.1 Malignant neoplasm of right kidney, except renal pelvis (principal) | CPT/HCPCS: 81003; 99212 ==

== ENCOUNTER 2023-05-06 19:07 | Outpatient (REF) | payer OTHER, SELFPAY | END 2023-05-06 19:08 | disposition home or self-care (01) | LOC: HO.HHCLNP 19:07 | PROVIDERS: Visit Provider Emergency Medicine | DX: J06.9 Acute upper respiratory infection, unspecified (principal); Z11.52 Encounter for screening for COVID-19; Z20.828 Contact with and (suspected) exposure to other viral communicable diseases | CPT/HCPCS: 0241U ==

== ENCOUNTER 2023-05-12 13:11 | Outpatient (AMB) | payer OTHER, SELFPAY ==
--- NOTE | 2023-05-12 13:13 | MHC.OFFVIS ---
Intake Visit Reasons: follow up Intake Note: Patient follow up for gastritis. Patient cc: diarrhea due Metformin, right side of abdominal inflammation,and also needed refills for Esomeprazole 20 mg. Chronometer Repairer Required: No Accompanied by: Self / Same As Patient Allergies leal [LEAL] Allergy (Severe, Verified 12/16/23 09:28) ANAPHYLAXIS cucumber Allergy (Severe, Verified 12/16/23 09:28) Shortness of Breath metoclopramide [From Reglan] Allergy (Severe, Verified 12/16/23 09:28) SEIZURE-LIKE ACTIVITIES Penicillins Allergy (Severe, Verified 12/16/23 09:28) Anaphylaxis oxycodone [From PERCOCET] Allergy (Mild, Verified 12/16/23 09:28) ITCHING rocephin Allergy (Uncoded 12/14/23 15:22) Itching Medication List - Last Reconciled 05/12/23 by Rainer Min MD acetaminophen-codeine 300-30 mg 1 tab PO TID PRN albuterol sulfate 90 mcg/actuation (Ventolin HFA) 2 puffs inhalation Q4-6H PRN albuterol sulfate mg inhalation arm brace (Wrist Brace) comfort form wrist/thumb RT S blood sugar diagnostic (FreeStyle Lite Strips) 1 strip miscellaneous QID bupropion HCl 300 mg PO cholecalciferol (vitamin D3) 50 mcg PO DAILY cyclobenzaprine 5 mg PO Q8H PRN 5 days dapaglifloz propaned-metformin 5-1,000 mg ER (Xigduo XR) 1 tab PO BID esomeprazole magnesium 20 mg PO DAILY 90 days flash glucose scanning reader (FreeStyle Patti 2 [place]) As directed flash glucose sensor (FreeStyle Patti 2 Sensor kit) Once every 14 days fluticasone propionate 110 mcg/actuation (Flovent HFA) 1 puff PO BID fluticasone propionate 50 mcg/actuation sprays intranasal guaifenesin 200 mg PO Q4H PRN hydrochlorothiazide 12.5 mg PO DAILY insulin lispro protamin-lispro 100 unit/mL (75-25) (Humalog Mix 75-25 KwikPen) 26 units before breakfast and 14 units before dinner subcut 2 times a day; lancets (FreeStyle Lancets) As directed lisinopril 40 mg PO DAILY lorazepam 1 tab PO BID PRN naproxen 500 mg PO BID PRN 10 days pen needle, diabetic (BD Meg 2nd Gen Pen Needle) 2 times a day rosuvastatin 10 mg PO DAILY sitagliptin phosphate (Januvia) 100 mg PO DAILY 30 days tizanidine 4 mg PO Q6-8H PRN HPI HPI follow up: Details: TELEMEDICINE VISIT FOR THIS 62-YEAR-OLD PRYDEINIG SPEAKING FEMALE FOR FOLLOW-UP OF RIGHT UPPER QUADRANT PAIN, NAUSEA AND AUTOIMMUNE GASTRITIS. ?CHRONIC ILLNESSES:?GERD, diabetes mellitus, hypertension, hypercholesterolemia, asthma, kidney stones ? morbid obesity, depression, urolithiasis, Anemia, history of colon cancer ? LABS IN [facility]: 01/08/20 CBC SHOWED ANEMIA WITH H&H OF 11.6 AND 37.3, PLATELET 237, NORMAL LFTS, ELEVATED CRP AT 0.81 ? Stool occult blood x3 were negative. ? PAST IRON STUDIES ARE CONSISTENT WITH IRON DEFICIENCY ANEMIA. ?IMAGING STUDIES: 11/2022 ABD MRI SCAN SHOWED: 1. No discrete MR evidence to suspect gastrinoma, however evaluation of the duodenum is somewhat limited due to underdistention and motion. Because gastrinoma often have abundant somatostatin receptors, further evaluation with nuclear medicine study (PET Dotatate) could be helpful in detection of an occult lesion. 2. Stable previously cryoablated lesion in the lower pole of the right kidney. 3. Hepatic steatosis. 05/29/[address] SCAN SHOWED: No acute findings. Fatty liver. Stable 1.4 cm right renal lesion worrisome for mass. Stable bilateral renal cysts. Stable left adrenal nodule. Stable 1.5 x 5 cm left pelvic cyst probably representing a left adnexal or paraovarian cyst.? 10/[address] SCAN SHOWED: No evidence of trauma to the abdomen or pelvis. Fatty liver. 1.3 cm low-attenuation lesion to the posterior lower pole of the right kidney worrisome for a renal mass. Bilateral renal cysts. Stable small left adrenal nodule. Postsurgical changes to the left colon. 1.5 x 5.3 cm left pelvic cyst. Differential would include a left adnexal cyst and hydrosalpinx. Follow-up pelvic ultrasound recommended.? 06/12/19 gastric emptying study showed: ? Retention in the stomach at each time interval was: ? 1 hour 79% (normal 37%-90%) ? 2 hours 49% (normal 30%-60%) ? 3 hours 36% ? 4 hours 25% (normal 0%-10%) ? Abnormal study. There is moderately severe abnormal retention of solid food in the stomach at 4 hours. ?11/[address] scan showed: ? BOWEL LOOPS: There is scattered stool seen throughout the colon without any significant distention. The small bowel loops are normal caliber for nonspecific mild thickening of the second and third segment of duodenum which could be secondary to peristalsis or low-grade duodenitis. ? LYMPH NODES: There are small peripancreatic lymph nodes seen. ? VASCULAR: Unremarkable. ? BONES: No lytic or sclerotic process seen. ? IMPRESSION: ? Mild mural thickening second and third segment duodenum, question duodenitis versus peristalsis. ? 1 cm left adrenal nodule. Likely small exophytic cyst mid to lower pole right kidney. ? No additional abnormality seen. ?ENDOSCOPIC STUDIES: 12/18/21 EGD AND COLON SHOWED: ESOPHAGUS: A 1 cms benign appearing nodule in the distal esophagus at 30 cms - biopsied.? GE junction at 32 cms, small hiatal hernia 32 to 34 cms. No esophagitis or Rick?s. STOMACH: Moderate diffuse gastric erythema with nodular and varigated appearing gastric mucosa and prominent gastric folds in the body of the stomach. Biopsies were obtained from gastric antrum and body. A 4-5 mm benign appearing polyp in the prepyloric area - biopsied. Colonoscopy Findings: Four medium to large sized polyps removed Moderate diverticulosis seen in the left colon Moderate hemorrhoids on retroflexed exam. Plan:? Repeat Colonoscopy interval based on path results - in 1-2 years if polyps are adenomatous and 5 years if polyps are hyperplastic (due to personal hx of colon cancer). 04/19/2019 EGD SHOWED: ? ESOPHAGUS: Small hiatal hernia and a benign appearing nodule in the distal esophagus ? STOMACH: Gastritis ? Plan: Continue present medications. ? Patient has an appointment on 05/03/18 in the GI Clinic with Rubeela Pako, M.D ? BIOPSIES SHOWED: ? A. Small bowel, biopsies: Small bowel mucosa with no significant histopathology; ? no villous abnormality identified; no increase in intraepithelial lymphocytes. ? B. Stomach, antrum, biopsies: Gastric mucosa with mild chronic, inactive ? gastritis with intestinal metaplasia; negative for dysplasia; negative for Helicobacter pylori organisms. ? C. Stomach, body, biopsies: Gastric mucosa with moderate chronic, inactive ? gastritis with intestinal metaplasia; negative for dysplasia; negative for Helicobacter pylori organisms. ? D. Esophagus, distal nodule, biopsy: Polypoid fragments of squamous epithelium within normal limits; negative for dysplasia/malignancy. ?TODAY'S VISIT Patient follow up for gastritis. 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 Pt states she notes right sided abdominal pain sometimes. Having muscular pain from neck to back for the past 3 months Diagnosed with arthritis and being prescribed medications for inflammation. Notes strong pain when she sits and has to stand up. Also notes pain when she lies down to sleep at night and if she lies on her right side. Prescribed tylenol with angelina and she is taking it three times a day. Getting PT for severe arthritis of rt shoulder. PAST VISIT: I have not had more nausea Dysphagia has improved. Lost 10 lbs. Traveled to [place] to visit her niece. EGD and colon results reviewed. Continues to have loss of appetite and is not eating any meat. Has nausea when she looks at meat Continues to have dysphagia to chicken and fruits at the throat level. Denies coughing spells with dysphagia Goes away when she drinks liquids Pt was seen by Dr Chavez and had Renal cryotherapy of right lower pole lesion in 07/2021. She is to have a FU imaging in 3-6 months. Intermittent sharp and stabbing RUQ pain for more than a month. Pain has been worse for the past week and increased to 7/10. Pain radiates to the back Denies nausea or vomting. Had a fall in 10/2020 and has been having intermittent pain since then. Denies diarrhea or constipation and has a BM almost every days Feeling a little tired She was visiting her sister in [place] who was cooking her food with hot sauce She noted increase in her pain after eating. Stopped taking hot sauce and not having pain any more. Notes intermittent constipation - had a BM today. ? Sometimes I have inflammation in the right side of my stomach ? Complains of constipation - taking medications and requesting for a stronger treatment. ? Has a BM every few days. ? Metamucil was helping her in the past and had to stop since she found it to be expensive ? ? ? Had her 1st dose of COVID vaccine recently. ? ? ? 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 Cataract Colon cancer (~2010) Diabetes type 2, uncontrolled Vitamin D deficiency Surgical History History of esophagogastroduodenoscopy (EGD) History of kidney surgery H/O colonoscopy Hx of breast reduction, elective H/O total hysterectomy Hx of tonsillectomy Family History Maternal Aunt Esophageal cancer Breast cancer Brother Colon cancer Diabetes Brother Colon cancer Father Diabetes Sister Diabetes Sister Diabetes Social History Household Members: None Housing: Apartment Alcohol intake: never Patient Tobacco Use Status: Never used Tobacco Second Hand Smoke Exposure: No Current occupational status: disabled 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 Review of Systems Const All systems reviewed & are unremarkable except as noted in HPI and below Telehealth Telehealth Location of provider rendering services: practice address Location of patient: address on file Patient Identification confirmed using: Name, : Yes Telehealth method: voice only Patient verbally consented to billing insurance company: Yes Patient informed of any privacy concerns related to visit: Yes Minutes spent on Phone/Video with Pt.: 18 Assessment & Plan Assessment & Plan (1) Elevated gastrin level: Code(s): E16.4 - Increased secretion of gastrin Category: Medical (2) Dysphagia: Code(s): R13.10 - Dysphagia, unspecified Category: Medical (3) Atrophic gastritis: Code(s): K29.40 - Chronic atrophic gastritis without bleeding Category: Medical (4) RUQ abdominal pain: Code(s): R10.11 - Right upper quadrant pain Category: Medical (5) GERD (gastroesophageal reflux disease): Code(s): K21.9 - Gastro-esophageal reflux disease without esophagitis Category: Medical (6) Chronic constipation: Code(s): K59.09 - Other constipation Category: Medical (7) Colon cancer: Comment: Colon Carcinoma stage II Disease diagnosed in 2010 - pT1 N0 M0. Her CAT scan and CEA level were normal. She had a surveillance colonoscopy by Dr. Lua, in June 2016, which was negative. She was noted to be high risk, with colon cancer in herself and a brother. Patient was identified as a candidate for genetic education and diagnostic germline genetic testing which was negative. Four medium to large sized polyps removed Moderate diverticulosis seen in the left colon Moderate hemorrhoids on retroflexed exam. Plan: Repeat EGD in 3 yrs (FU of intestinal metaplasia of stomach) and repeat Colonoscopy in 1 year (due 11/2022) Code(s): C18.9 - Malignant neoplasm of colon, unspecified Category: Medical (8) Vitamin D deficiency: Code(s): E55.9 - Vitamin D deficiency, unspecified Category: Medical Plan 62 YF with GERD, diabetes mellitus, hypertension, hypercholesterolemia, asthma, kidney stones, morbid obesity, depression, urolithiasis, ROSA followed in GI for right upper quadrant pain, early satiety, nausea and chronic constipation. Patient is status post colon resection for colon cancer 12 years ago. No source of abdominal pain was detected on past EGD. Patient was diagnosed with diabetes mellitus at age 19 years. Persistent right upper quadrant pain is likely due to diabetic gastroparesis +/- constipation. Gastric emptying study confirmed diabetic gastroparesis. Patient was advised on dietary modification and a handout on gastroparesis in [place] from up-to-date was given to the patient. Stool hemoccults x3 were negative.? Patient was advised a psyllium powder 1 to 2 times a day for constipation with improvement in symptoms. If she has recurrent constipation, I will start Linzess on follow-up. Pt complains of RUQ pain likely a combination of fatty liver and gastroparesis. 11/[address] scan showed?1.3 cm low-attenuation lesion to the posterior lower pole of the right kidney worrisome for a renal mass. Pt was seen by Dr Chavez and had cryoablation of lower pole lesion in the right kidney Barium swallow ordered for evaluation of dysphagia and not scheduled yet (will hold off since dysphagia has improved and no stricture noted on EGD). Labs showed elevated Gastrin (? related to PPI use) and anti-parietal cell ab - 65.3. Pt advised to hold esomeprazole x 7 days and have repeat Gastrin checked after an overnight fast. Repeat Gastrin level was elevated. 11/2022 pancreas protocol MRI scan showed: 1. No discrete MR evidence to suspect gastrinoma, however evaluation of the duodenum is somewhat limited due to underdistention and motion. Because gastrinoma often have abundant somatostatin receptors, further evaluation with nuclear medicine study (PET Dotatate) could be helpful in detection of an occult lesion. 2. Stable previously cryoablated lesion in the lower pole of the right kidney. 3. Hepatic steatosis. FU in 4 months Orders: Orders Gastrin 05/12/23 E16.4 - Increased secretion of gastrin Medications: Refilled esomeprazole magnesium 20 mg PO DAILY 90 caps 2RF 90 days K21.9 - Gastro-esophageal reflux disease without esophagitis Coding Level of Care Code Tele Est Pt Level 3 (99003) Diagnoses Elevated gastrin level E16.4 Dysphagia R13.10 Atrophic gastritis K29.40 RUQ abdominal pain R10.11 GERD (gastroesophageal reflux disease) K21.9 Chronic constipation K59.09 Colon cancer C18.9 Vitamin D deficiency E55.9 Time Spent (min) 18
== END 2023-05-12 14:27 | disposition home or self-care (01) ==
LOC: HO.HGI 13:11
PROVIDERS: PCP Family Medicine; Visit Provider Internal Medicine Gastroenterology
DX: E16.4 Increased secretion of gastrin (principal); R13.10 Dysphagia, unspecified; K29.40 Chronic atrophic gastritis without bleeding; K21.9 Gastro-esophageal reflux disease without esophagitis; K59.09 Other constipation; C18.9 Malignant neoplasm of colon, unspecified; E55.9 Vitamin D deficiency, unspecified
CPT/HCPCS: 99499

== ENCOUNTER → 2023-05-12 13:11 | Outpatient (BNVA) | payer OTHER, SELFPAY | PROVIDERS: PCP Family Medicine; Visit Provider Internal Medicine Gastroenterology ==

== ENCOUNTER 2023-05-26 13:22 | Emergency (ER) | payer OTHER, SELFPAY ==
[2023-05-26] VITALS (8 sets, daily range): BP systolic 149–178; BP diastolic 51–80; PULSE 74–85; RESP 12–18; TEMP 36.8–36.9; O2SAT 93–98; BMI 34.9
--- NOTE | ~2023-05-26 | CT_ITS ---
EXAMINATION: CT ANGIOGRAM OF THE CHEST WITH AND WITHOUT CONTRAST (CT PULMONARY ANGIOGRAM FOR PE) CLINICAL INFORMATION: Reason for Exam L sided pain elevated ddimer COMPARISON: Previous chest x-ray from earlier the same day and chest CT April 2018 TECHNIQUE: Prior to contrast administration, noncontrast localization images were obtained. Subsequently, multidetector volumetric imaging was performed from the thoracic inlet to below the diaphragms following the administration of 65 mL Omnipaque 350 intravenous contrast. No contrast reaction reported Sagittal, coronal, and MIP oblique sagittal reformatted images were obtained on the CT workstation, uploaded to PACS, and reviewed. This CT examination was performed using dose optimization techniques as appropriate, variously including the following: *Automated exposure control *Adjustment of mA and/or kV according to patient size (this includes techniques or standardized protocols for targeted exams where dose is matched to indication/reason for exam; i.e. extremities or head) *Use of iterative reconstruction technique Total exam dose-length product 160 mGy-cm FINDINGS: QUALITY OF STUDY/CONTRAST BOLUS: Satisfactory. PULMONARY ARTERIES: Question small subsegmental posterior right lower lobe pulmonary embolism axial image 257 series 7. No other evidence of pulmonary emboli. THORACIC AORTA: No aneurysm. LUN mm peripheral or subpleural calcified right lower lobe nodule stable from April 2018 PLEURA: Focal left pleural thickening adjacent to the right upper lobe stable from April 2018.. No pleural effusion or pneumothorax. MEDIASTINUM: Enlargement of the left lobe of the thyroid gland. There are 2 adjacent 2 cm left thyroid nodules. These were evaluated by ultrasound and fine-needle aspiration June 2022. Enlarged heart. No pericardial effusion. No hilar or mediastinal lymphadenopathy. No evidence of septal bowing or right heart strain. CORONARY ARTERY CALCIFICATION: Mild CHEST WALL/AXILLA: No axillary or internal mammary lymphadenopathy. OSSEOUS STRUCTURES: Degenerative changes of the spine. UPPER ABDOMEN: The gallbladder has been removed. Calcification in the spleen. No reflux of contrast into the hepatic veins to suggest elevated right heart pressures. CT/CT angio chest PE protocol IMPRESSION: Question small solitary subsegmental right lower lobe pulmonary embolism. Correlation with leg ultrasound and short-term follow-up CT PA gram recommended. Slightly enlarged heart. Mild coronary artery calcification. Stable pulmonary findings. Enlarged left lobe of the thyroid gland and 2 adjacent 2 cm left thyroid nodules. These were evaluated by ultrasound and fine-needle aspiration June 2022.
--- NOTE | ~2023-05-26 | XR_ITS ---
EXAMINATION: XR CHEST CLINICAL INFORMATION: Chest pain COMPARISON: PA chest 03/10/2020 TECHNIQUE: AP upright portable view of the chest was obtained. 2:26 PM FINDINGS: The lungs are clear. There is no focal consolidation, interstitial pulmonary edema or pneumothorax. No pleural effusion. The cardiomediastinal silhouette is within normal limits. Peribronchial thickening is noted, as before. No acute osseous abnormality. There are degenerative changes of the acromioclavicular joints. Calcification of the thoracic aorta is indicative of atherosclerotic disease. XR/XR chest 1V IMPRESSION: No acute cardiopulmonary disease.
--- NOTE | 2023-05-26 14:22 | ECG_ITS ---
Test Reason : CP Blood Pressure : / mmHG Vent. Rate : 076 BPM Atrial Rate : 076 BPM P-R Int : 156 ms QRS Dur : 072 ms QT Int : 388 ms P-R-T Axes : 042 031 036 degrees QTc Int : 436 ms Normal sinus rhythm Normal ECG When compared with ECG of 11-JUN-2020 13:24, No significant change was found Referred By: Alix Mauricio Electronically Signed By:Esa Macario
[2023-05-26 14:59] LABS: MANUAL DIFF FLAG NO
[2023-05-26 15:02] LABS: Basophils Absolute Auto 0.1 X10*3/uL (0.0-0.2); Basophils Percent Auto 0.7 % (0-2); Eosinophils Absolute Auto 0.6 X10*3/uL (0.0-0.4); Eosinophils Percent Auto 7.1 % (0-4); Hematocrit 38.4 % (37.0-47.0); Hemoglobin 11.6 g/dl (12.0-16.0); Imm Gran Abs Auto 0.04 X10*3/uL (0.00-0.03); Imm Gran Pct Auto 0.5 % (0.0-0.4); Lymphocytes Absolute Auto 2.4 X10*3/uL (1.2-4.9); Lymphocytes Percent Auto 26.9 % (20-40); Mean Corpuscular HGB Conc 30.2 g/dl (31.0-35.0); Mean Corpuscular Hemoglobin 25.2 pg (27.0-33.0); Mean Corpuscular Volume 83.5 fL (80.0-98.0); Mean Platelet Volume 10.6 fL (9.4-12.3); Monocytes Absolute Auto 0.8 X10*3/uL (0.1-1.2); Monocytes Percent Auto 8.8 % (2-11); Platelet Count 247 X10*3/uL (160-400); Red Cell Distribution Width 15.6 % (11.0-16.0); White Blood Count 8.9 X10*3/uL (4.8-10.8)
[2023-05-26 15:15] LABS: COVID-19 Test Negative (Negative); IDNOW Serial# 08D9AD1C
[2023-05-26 15:18] LABS: IDNOW Serial# 152EDE1D; Influenza A Negative (Negative); Influenza B2 Negative (Negative)
[2023-05-26 15:27] LABS: Alanine Aminotransferase 20 U/L (0-31); Alkaline Phosphatase 91 U/L (39-117); Anion Gap 16 (12-20); Aspartate Amino Transferase 18 U/L (5-31); Bilirubin Direct 0.1 mg/dL (0.0-0.5); Bilirubin Total 0.3 mg/dL (0.0-1.0); Blood Urea Nitrogen 11 mg/dL (9-16); Calcium 9.5 mg/dL (8.4-10.2); Carbon Dioxide 25 mmol/L (22-29); Chloride 105 mmol/L (96-108); Creatinine Clr Calc Pharmacy 84.2; Estimated Glomerular Filt Rate > 60; Glucose Random 68 mg/dL (60-115); Magnesium 1.5 mg/dL (1.6-2.6); Potassium 3.7 mmol/L (3.3-5.1); Sodium 142 mmol/L (135-145); Total Protein 7.2 g/dL (6.5-8.0)
--- NOTE | 2023-05-26 15:32 | ED.CHESTPAIN ---
HPI - Chest Pain General Chief Complaint: Chest Pain Stated Complaint: CP Time Seen by Provider: 05/26/23 14:24 Source: patient, EMS and old records reviewed Mode of arrival: EMS Limitations: no limitations History of Present Illness HPI narrative: 62 yo female with PMH of gastritis, renal cancer, GERD, HTN, DM, HLD, here with c/o 1 week of dry cough that will not get better her doctor Rx her a cough syrup but no relief. She now comes in with c/o yesterday fatigue, malaise, nause and not getting better. Her cough is still present. Today she has had chest pain in left upper chest that radiates down the arm MD complaint: chest pain Onset (ago): day(s) (since last night) Timing of current episode: constant Prior episodes: Yes Onset: during rest Pain location: left chest Pain radiation: left arm Severity: moderate Quality: tightness Relieving factors: nothing Exacerbating factors: nothing Context: recent illness Associated symptoms: dyspnea and cough Treatment prior to arrival: aspirin and nitroglycerin (no relief) Related Data Home Medications Medication Instructions Recorded Confirmed albuterol sulfate 90 mcg/actuation 2 puff inhalation Q4-6H PRN 03/11/20 05/12/23 aerosol inhaler (Ventolin HFA) Wheezing lorazepam 1 mg tablet 1 tab PO BID PRN anxiety 03/11/20 05/12/23 acetaminophen 300 mg-codeine 30 mg 1 tab PO TID PRN Pain 03/25/20 05/12/23 tablet albuterol sulfate 2.5 mg/3 mL mg inhalation 03/25/20 05/12/23 (0.083 %) solution for nebulization hydrochlorothiazide 12.5 mg tablet 12.5 mg PO DAILY 03/25/20 05/12/23 lisinopril 40 mg tablet 40 mg PO DAILY 03/25/20 05/12/23 bupropion HCl 300 mg 24 hr tablet, 300 mg PO 05/15/20 05/12/23 extended release fluticasone propionate 110 1 puff PO BID 05/14/21 05/12/23 mcg/actuation HFA aerosol inhaler (Flovent HFA) guaifenesin 100 mg/5 mL oral liquid 200 mg PO Q4H PRN Cough 05/14/21 05/12/23 fluticasone propionate 50 spray intranasal 07/16/21 05/12/23 mcg/actuation nasal spray,suspension tizanidine 4 mg tablet 4 mg PO Q6-8H PRN Muscle Spasm 07/16/21 05/12/23 insulin lispro protamine-lispro See Rx Instructions subcut BID 03/29/22 05/12/23 100 unit/mL (75-25) subcutaneous pen (Humalog Mix 75-25 KwikPen) Previous Rx's Medication Instructions Recorded cyclobenzaprine 5 mg tablet 5 mg PO Q8H PRN pain (scale score 03/10/20 7-10) 5 days #14 tabs naproxen 500 mg tablet 500 mg PO BID PRN pain 10 days #20 03/10/20 tabs arm brace (Wrist Brace) #1 ea 04/09/20 lancets 28 gauge (FreeStyle #400 ea 05/21/21 Lancets) pen needle, diabetic 32 gauge x #100 ea 10/09/21 (BD Meg 2nd Gen Pen Needle) cholecalciferol (vitamin D3) 50 50 mcg PO DAILY #30 caps 10/26/21 mcg (2,000 unit) capsule rosuvastatin 10 mg tablet 10 mg PO DAILY #30 tabs 10/26/21 sitagliptin phosphate 100 mg 100 mg PO DAILY 30 days #30 tabs 12/23/21 tablet (Januvia) dapagliflozin propaned 5 1 tab PO BID #60 ea 12/25/21 mg-metformin ER 1,000 mg tablet, ext rel 24hr (Xigduo XR) flash glucose scanning reader #1 ea 03/04/22 (FreeStyle Patti 2 [place]) flash glucose sensor (FreeStyle #3 ea 03/04/22 Patti 2 Sensor kit) blood sugar diagnostic (FreeStyle 1 strip miscellaneous QID #400 01/24/23 Lite Strips) strips esomeprazole magnesium 20 mg 20 mg PO DAILY 90 days #90 caps 05/12/23 capsule,delayed release apixaban 5 mg (74 tabs) tablets in 5 mg PO BID #74 ea 05/26/23 a dose pack (Eliquis DVT-PE Treat 30D Start) Allergies Allergy/AdvReac Type Severity Reaction Status Date / Time suarez [SUAREZ] Allergy Severe ANAPHYLAXIS Verified 09/15/22 11:00 cucumber Allergy Severe Shortness Verified 09/15/22 11:00 of Breath metoclopramide [From Reglan] Allergy Severe SEIZURE-LIKE Verified 09/15/22 11:00 ACTIVITIES Penicillins Allergy Severe Anaphylaxis Verified 09/15/22 11:00 oxycodone [From PERCOCET] Allergy Mild ITCHING Verified 09/15/22 11:00 Review of Systems Review of Systems: Constitutional : No Weight loss, No Fever, No Chills ENT/Mouth : No sore throat, No Rhinorrhea Eyes: No Eye Pain, No Swelling Cardiovascular : pos Chest Pain, pos SOB, no Dyspnea on Exertion, No Orthopnea, No Edema, No Palpitations Respiratory : No Cough, No Sputum Gastrointestinal : pos Nausea, No Vomiting, No Diarrhea, No abdominal Pain, No Hematochezia, No Melena Genitourinary : No Dysuria, No Urinary Frequency Musculoskeletal : No joint pain, No Myalgias, No Joint Swelling Skin : No Skin Lesions, No rash Neuro : No Weakness, No Numbness, No Dizziness, No Headache Psych : No Anxiety/Panic, No Depression Heme/Lymph: No Bruising, No Lymphadenopathy Endocrine : No Polyuria, No Polydipsia All other systems reviewed and are negative [facility] Past Medical History Attestation statement: The following information was validated with the patient. 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 Cataract Colon cancer (~2010) Diabetes type 2, uncontrolled Vitamin D deficiency Surgical History History of esophagogastroduodenoscopy (EGD) History of kidney surgery H/O colonoscopy Hx of breast reduction, elective H/O total hysterectomy Hx of tonsillectomy Family History Family History Maternal Aunt Esophageal cancer Breast cancer Brother Colon cancer Diabetes Brother Colon cancer Father Diabetes Sister Diabetes Sister Diabetes Social History Social History Household Members: None Housing: Apartment Alcohol intake: never Patient Tobacco Use Status: Never used Tobacco Smoked in Last 30 Days: No Second Hand Smoke Exposure: No Use of substances other than those prescribed or required for medical reasons: No Advance Directives: No Advance Directives Information Provided: Yes Patient : No Current occupational status: disabled 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 Oriented X3. No acute distress. Eyes: Pupils equal, round and reactive to light. ENT: Pharynx normal. Neck: Normal inspection. Neck supple. CVS: Normal heart rate and rhythm. Pulses normal. Respiratory: No respiratory distress. Breath sounds normal. Abdomen: Soft and nontender. Skin: Skin warm and dry. Normal skin color. Normal skin turgor. Extremities: No lower extremity edema. No calf ttp Neuro: Oriented X 3. No motor deficit. No sensory deficit. Course Course Course Narrative: risk factor could be COVID 2 months ago Medications Administered Discontinued Medications Generic Name Dose Route Start Last Admin Trade Name Freq PRN Reason Stop Dose Admin Magnesium Sulfate 2 gm in 50 mls @ 25 mls/hr 05/26/23 15:30 05/26/23 18:19 Magnesium Sulfate/H2o IV 05/26/23 17:29 Infused ONCE ONE Infusion Iohexol 100 ml 05/26/23 19:20 05/26/23 19:20 Iohexol 350 Mg/Ml 100 Ml Infus..Btl IV 05/26/23 19:21 65 ml ONCE ONE Administration Medical Decision Making Medical Decision Making [facility] Narrative: 62 yo female with PMH of gastritis, renal cancer, GERD, HTN, DM, HLD, here with c/o recent URI then developed L sided chest pain radiating down L arm - she is NV intact no signs of DVT no hypoxia no tachycardia to suggest VTE. She has no hx of VTE. At this time will need basic labs, EKG, troponin x 2, ddimer and viral panel. Could be atypical ACS, MSK, viral, cough induced, vs low prob VTE Differential Diagnosis Differential Diagnoses: The differential diagnosis associated with the presentation includes atypical ACS, MSK, viral, cough induced, vs low prob VTE Admission/Observation Consideration of admission/observation: Escalation of care including admission/observation considered trop flat x 2, EKG nonischemic likely clinically insignificant as she has no pain on R side of chest it is L sided - she has no signs of DVT, no hypoxia no tachycardia will treat with 3 months of eliquis and instruct her to follow up with PCP she does not need admission normal VS no sig pain, no signs of R heart strain Lab Data MDM Lab Attestation statement: I reviewed the patient's lab results. 05/26/23 14:49 05/26/23 14:49 Labs: Lab Results 05/26/23 05/26/23 05/26/23 Range/Units 14:49 15:28 16:29 WBC 8.9 (4.8-10.8) X10*3/uL RBC 4.60 (4.20-5.50) X10*6/uL Hgb 11.6 L (12.0-16.0) g/dl Hct 38.4 (37.0-47.0) % MCV 83.5 (80.0-98.0) fL MCH 25.2 L (27.0-33.0) pg MCHC 30.2 L (31.0-35.0) g/dl RDW 15.6 (11.0-16.0) % Plt Count 247 (160-400) X10*3/uL MPV 10.6 (9.4-12.3) fL Immature Gran % (Auto) 0.5 H (0.0-0.4) % Neut % (Auto) 56.0 (45-73) % Lymph % (Auto) 26.9 (20-40) % [place] % (Auto) 8.8 (2-11) % Eos % (Auto) 7.1 H (0-4) % Baso % (Auto) 0.7 (0-2) % Lymph # (Auto) 2.4 (1.2-4.9) X10*3/uL [place] # (Auto) 0.8 (0.1-1.2) X10*3/uL Eos # (Auto) 0.6 H (0.0-0.4) X10*3/uL Baso # (Auto) 0.1 (0.0-0.2) X10*3/uL Abs Immat Gran (auto) 0.04 H (0.00-0.03) X10*3/uL Absolute Neuts (auto) 5.0 (2.0-8.3) x10*3/uL Absolute Nucleated RBC 0.000 (0.0-0.012) X10*3/uL Nucleated RBC % (auto) 0.0 (0.0-0.2) /100WBC D-Dimer High Sensitivty 506 NG/ML Sodium 142 (135-145) mmol/L Potassium 3.7 (3.3-5.1) mmol/L Chloride 105 (96-108) mmol/L Carbon Dioxide 25 (22-29) mmol/L Anion Gap 16 (12-20) BUN 11 (9-16) mg/dL Creatinine 0.68 (0.5-1.4) mg/dL Estim Creat Clear Calc 84.2 Estimated GFR > 60 POC Glucose 65 (60-115) mg/dL Random Glucose 68 (60-115) mg/dL Calcium 9.5 (8.4-10.2) mg/dL Magnesium 1.5 L (1.6-2.6) mg/dL Total Bilirubin 0.3 (0.0-1.0) mg/dL Direct Bilirubin 0.1 (0.0-0.5) mg/dL AST 18 (5-31) U/L ALT 20 (0-31) U/L Alkaline Phosphatase 91 (39-117) U/L Troponin I High Sens 10.5 (<3.5-17.0) ng/L Total Protein 7.2 (6.5-8.0) g/dL Albumin 4.0 (3.5-5.0) g/dL COVID-19 (SADE) Negative (Negative) COVID-19 Clin Com See Note Influenza Type A (LEVAR) Negative (Negative) Influenza Type B (LEVAR) Negative (Negative) Influenza A & B Note See Note 05/26/23 05/26/23 Range/Units 17:09 20:05 WBC (4.8-10.8) X10*3/uL RBC (4.20-5.50) X10*6/uL Hgb (12.0-16.0) g/dl Hct (37.0-47.0) % MCV (80.0-98.0) fL MCH (27.0-33.0) pg MCHC (31.0-35.0) g/dl RDW (11.0-16.0) % Plt Count (160-400) X10*3/uL MPV (9.4-12.3) fL Immature Gran % (Auto) (0.0-0.4) % Neut % (Auto) (45-73) % Lymph % (Auto) (20-40) % [place] % (Auto) (2-11) % Eos % (Auto) (0-4) % Baso % (Auto) (0-2) % Lymph # (Auto) (1.2-4.9) X10*3/uL [place] # (Auto) (0.1-1.2) X10*3/uL Eos # (Auto) (0.0-0.4) X10*3/uL Baso # (Auto) (0.0-0.2) X10*3/uL Abs Immat Gran (auto) (0.00-0.03) X10*3/uL Absolute Neuts (auto) (2.0-8.3) x10*3/uL Absolute Nucleated RBC (0.0-0.012) X10*3/uL Nucleated RBC % (auto) (0.0-0.2) /100WBC D-Dimer High Sensitivty NG/ML Sodium (135-145) mmol/L Potassium (3.3-5.1) mmol/L Chloride (96-108) mmol/L Carbon Dioxide (22-29) mmol/L Anion Gap (12-20) BUN (9-16) mg/dL Creatinine (0.5-1.4) mg/dL Estim Creat Clear Calc Estimated GFR POC Glucose 152 H (60-115) mg/dL Random Glucose (60-115) mg/dL Calcium (8.4-10.2) mg/dL Magnesium (1.6-2.6) mg/dL Total Bilirubin (0.0-1.0) mg/dL Direct Bilirubin (0.0-0.5) mg/dL AST (5-31) U/L ALT (0-31) U/L Alkaline Phosphatase (39-117) U/L Troponin I High Sens 12.8 (<3.5-17.0) ng/L Total Protein (6.5-8.0) g/dL Albumin (3.5-5.0) g/dL COVID-19 (SADE) (Negative) COVID-19 Clin Com Influenza Type A (LEVAR) (Negative) Influenza Type B (LEVAR) (Negative) Influenza A & B Note Independent Interpretation I performed an independent interpretation of an: EKG, Plain X-Ray (normal ) and CT Scan (possible subsegmental PE) Interpretation: Rate: 74 Rhythm: NSR [place]: normal Normal P waves. Normal STARLA. Normal QRS complex. ST T wave : normal no SID qTC: normal prior studies: no acute ischemia The study has been interpreted contemporaneously by me. . Radiology Impression Discussion of test interpretation with radiology: I have reviewed the radiologist's reading. External Record Review External record reviewed: Outpatient record Prescription Management I considered prescription management with: Other (eliquis) Discharge Plan Discharge Clinical Impression: Atypical chest pain, Single subsegmental pulmonary embolism without acute cor pulmonale Patient Disposition: Home, Self-Care Instructions: Chest Pain (ED), Blood Thinners (ED), Deep Vein Thrombosis Prevention (ED) Additional Instructions: tests for heart normal x 2, EKG no acute findings. on CT scan there was possibly one small blood clot on right lower lung - at this time would start on blood thinners called cesiaquis. YOU CANNOT TAKE ASPIRIN, MOTRIN, ALEVE, IBUPROFEN BUT TYLENOL IS OKAY. return for worsening pain, difficulty breathing, falls and hits to head, black or bloody stools or any other concerns. please call your doctor in the morning to schedule a close follow up appointment Prescriptions: New Eliquis DVT-PE Treat 30D Start 5 mg (74 tabs) tablets,dose pack 5 mg PO BID Qty: 74 0RF Rx Instructions: 10mg daily for the first 7 days was given initial dose in ED No Action (DME) lancets [FreeStyle Lancets] 28 gauge misc See Rx Instructions topical QID Qty: 400 11RF Rx Instructions: As directed (DME) pen needle, diabetic [BD Meg 2nd Gen Pen Needle] 32 gauge x 5/32 needle See Rx Instructions .MEDSUPPLY Qty: 100 11RF Rx Instructions: 2 times a day rosuvastatin 10 mg tablet 10 mg PO DAILY Qty: 30 6RF cholecalciferol (vitamin D3) 50 mcg (2,000 unit) capsule 50 mcg PO DAILY Qty: 30 6RF Januvia 100 mg tablet 100 mg PO DAILY 30 Days Qty: 30 4RF Xigduo XR 5-1,000 mg tablet, IR - ER, biphasic 24hr 1 tab PO BID Qty: 60 5RF (DME) FreeStyle Patti 2 [place] Misc See Rx Instructions .ROUTE .MEDSUPPLY Qty: 1 0RF Rx Instructions: As directed (DME) FreeStyle Patti 2 Sensor Kit See Rx Instructions .ROUTE .MEDSUPPLY Qty: 3 11RF Rx Instructions: Once every 14 days FreeStyle Lite Strips Strip 1 strip miscellaneous QID Qty: 400 3RF lorazepam 1 mg tablet 1 tab PO BID PRN (Reason: anxiety) albuterol sulfate [Ventolin HFA] 90 mcg/actuation HFA aerosol inhaler 2 puff inhalation Q4-6H PRN (Reason: Wheezing) cyclobenzaprine 5 mg tablet 5 mg PO Q8H PRN (Reason: pain (scale score 7-10)) 5 Days Qty: 14 0RF naproxen 500 mg tablet 500 mg PO BID PRN (Reason: pain) 10 Days Qty: 20 0RF (DME) Wrist Brace Misc See Rx Instructions .MEDSUPPLY Qty: 1 0RF Rx Instructions: comfort form wrist/thumb RT S acetaminophen-codeine 300-30 mg tablet 1 tab PO TID PRN (Reason: Pain) lisinopril 40 mg tablet 40 mg PO DAILY hydrochlorothiazide 12.5 mg tablet 12.5 mg PO DAILY albuterol sulfate 2.5 mg /3 mL (0.083 %) solution for nebulization inhalation bupropion HCl 300 mg tablet extended release 24 hr 300 mg PO insulin lispro protamin-lispro [Humalog Mix 75-25 KwikPen] 100 unit/mL (75-25) insulin pen See Rx Instructions subcut BID Rx Instructions: 26 units before breakfast and 14 units before dinner subcut 2 times a day; Flovent HFA 110 mcg/actuation HFA aerosol inhaler 1 puff PO BID guaifenesin 100 mg/5 mL liquid 200 mg PO Q4H PRN (Reason: Cough) tizanidine 4 mg tablet 4 mg PO Q6-8H PRN (Reason: Muscle Spasm) fluticasone propionate 50 mcg/actuation spray,suspension intranasal esomeprazole magnesium 20 mg capsule,delayed release(DR/EC) 20 mg PO DAILY 90 Days Qty: 90 2RF
[2023-05-26 15:34] LABS: Troponin-I High Sensitivity 10.5 ng/L (<3.5-17.0)
--- NOTE | 2023-05-26 15:35 | MHC.EDTECH ---
This pct assumed care of Pt at 1500 ,Patient rang stated said she think her blood sugar is low ,blood sugar was check it was 65 ,MAXIMILIANO Patel was made aware and said to give Patient orange juice ,Patient drank 120 ml orange juice ,MAXIMILIANO Patel said not to draw repeated labs ,as she will Put in iv line .
[2023-05-26 15:41] LABS: Glucose, Whole Blood 65 mg/dL (60-115)
[2023-05-26] MEDS: Magnesium Sulfate/H2O 2 GM/50 ML PIGGYBACK IV (16:31)
[2023-05-26 16:51] LABS: D Dimer High Sensitivity 506 NG/ML
--- NOTE | 2023-05-26 17:13 | MHC.EDTECH ---
Patient 2nd trop drawn and sent to lab ,Patient was re vital ,pt was hungry ,rn said Patient could eat Pt had grham crackers and 240 ml orange juice for snack .
[2023-05-26 17:37] LABS: Troponin-I High Sensitivity 12.8 ng/L (<3.5-17.0)
--- NOTE | 2023-05-26 18:02 | PC.NURSE ---
CT requesting 20g IV access or larger, this float RN obtained access in left AC + blood return, pt jumped while advancing catheter then demanded to have line removed. Pt informed that line was patent and functioning properly, pt continued to demand for access to be removed. 20g access to left AC removed per pt request primary RN notified.
--- NOTE | 2023-05-26 18:56 | MHC.EDTECH ---
Patient was up and walk to bathroom ,void and back to bed .
[2023-05-26] MEDS: iohexoL 350 MG/ML 100 ML INFUS..BTL IV (19:20)
--- NOTE | 2023-05-26 20:11 | MHC.EDTECH ---
VITALS TAKEN ,PATIENT BLOOD SUGAR CHECK ,RN AWARE OF RESULT OF 152 ,PT HAD TURKEY SANDWICH AND DIET KEEGAN JEREMY FOR SNACK .
[2023-05-26 20:15] LABS: Glucose, Whole Blood 152 mg/dL (60-115)
[2023-05-26] MEDS: Apixaban 5 MG TABLET 10 MG PO (20:45)
== END 2023-05-26 20:35 | disposition home or self-care (01) ==
PROVIDERS: Physician Assistant Medical; Emergency Provider Emergency Medicine; PCP Family Medicine
DX: I26.93 Single subsegmental thrombotic pulmonary embolism without acute cor pulmonale (principal); R07.89 Other chest pain; I10 Essential (primary) hypertension; R05.9 Cough, unspecified; R11.2 Nausea with vomiting, unspecified; R06.02 Shortness of breath; Z79.899 Other long term (current) drug therapy; Z11.52 Encounter for screening for COVID-19
CPT/HCPCS: 36415; 71045; 71275; 80048; 80076; 82947; 83735; 84484; 85025; 85379; 87502; 87635; 93005; 96365; 96366; 99284; 99285; J3475; Q9967

== ENCOUNTER → 2023-05-26 14:22 | Outpatient (BNV) | payer OTHER, SELFPAY | PROVIDERS: Emergency Provider Emergency Medicine; PCP Family Medicine; Visit Provider Internal Medicine Cardiovascular Disease | DX: R07.9 Chest pain, unspecified (principal) | CPT/HCPCS: 93010 ==

== ENCOUNTER 2023-06-17 12:14 | Outpatient (REF) | payer OTHER, SELFPAY ==
--- NOTE | ~2023-06-17 | US_ITS ---
EXAMINATION: US RETROPERITONEAL LIMITED (RENAL ONLY) CLINICAL INFORMATION: Malignant neoplasm of unspecified kidney, except renal pelvis. 1.2 cm cryoablated lesion lower pole right kidney on MR abdomen of 12/27/2022 unchanged. COMPARISON: MRI abdomen 12/21/2022. Renal ultrasound 11/30/2022 and 06/18/2022. CT abdomen 12/01/2021. TECHNIQUE: Real-time imaging of the kidneys. Limited visualization due to bowel gas. FINDINGS: RIGHT KIDNEY: 11.0 x 5.1 x 5.4 cm (SAG x AP x TRV). No hydronephrosis. No renal calculi. Renal cortical thickness is normal. Limited visualization. Stable lower pole 0.9 cm cyst with benign features. There is no indication for follow-up imaging. Previously identified right lower pole 1.2 cm cryoablated lesion is not appreciated today, however, visualization is limited. LEFT KIDNEY: 11.2 x 5.3 x 4.4 cm (SAG x AP x TRV). No hydronephrosis. No renal calculi. Renal cortical thickness is normal. Limited visualization. Lower pole 1.1 cm cyst in upper pole 0.9 cm cyst with benign features. There is no indication for follow-up imaging. US/US renal BI IMPRESSION: Previously identified right lower pole 1.2 cm cryoablated lesion is not appreciated today, however, visualization is limited due to bowel gas. CT scan would be more sensitive for further evaluation.
== END 2023-06-17 12:15 | disposition home or self-care (01) ==
LOC: HO.US 12:14
PROVIDERS: PCP Family Medicine; Visit Provider Nurse Practitioner Family
DX: C64.9 Malignant neoplasm of unspecified kidney, except renal pelvis (principal)
CPT/HCPCS: 76775

== ENCOUNTER 2023-07-04 12:28 | Outpatient (AMB) | payer OTHER, SELFPAY ==
--- NOTE | 2023-07-03 19:34 | MHC.OFFVIS ---
Intake Vital Signs 07/04/23 13:27 Height 5 ft 1 in Weight 180 lb 12.465 oz BMI 34.2 BP 146/64 H Blood Pressure Location Lt brachial Position Sitting Pulse 84 Pulse Oximetry (%) 98 Oxygen Delivery Method Room Air Intake Visit Reasons: Abnormal CTA Thread Winder Required: No Psychiatric Clinician: Psychiatric Clinician offered & declined Accompanied by: Self / Same As Patient Allergies leal [LEAL] Allergy (Severe, Verified 07/04/23 13:31) ANAPHYLAXIS cucumber Allergy (Severe, Verified 07/04/23 13:31) Shortness of Breath metoclopramide [From Reglan] Allergy (Severe, Verified 07/04/23 13:31) SEIZURE-LIKE ACTIVITIES Penicillins Allergy (Severe, Verified 07/04/23 13:31) Anaphylaxis oxycodone [From PERCOCET] Allergy (Mild, Verified 07/04/23 13:31) ITCHING Medication List - Last Reconciled 07/04/23 by Linda Pino LPN acetaminophen-codeine 300-30 mg 1 tab PO TID PRN albuterol sulfate 90 mcg/actuation (Ventolin HFA) 2 puffs inhalation Q4-6H PRN albuterol sulfate mg inhalation apixaban (Eliquis DVT-PE Treat 30D Start) 5 mg PO BID arm brace (Wrist Brace) comfort form wrist/thumb RT S blood sugar diagnostic (FreeStyle Lite Strips) 1 strip miscellaneous QID bupropion HCl 300 mg PO cholecalciferol (vitamin D3) 50 mcg PO DAILY cyclobenzaprine 5 mg PO Q8H PRN 5 days dapaglifloz propaned-metformin 5-1,000 mg ER (Xigduo XR) 1 tab PO BID esomeprazole magnesium 20 mg PO DAILY 90 days flash glucose scanning reader (FreeStyle Patti 2 [place]) As directed flash glucose sensor (FreeStyle Patti 2 Sensor kit) Once every 14 days fluticasone propionate 110 mcg/actuation (Flovent HFA) 1 puff PO BID fluticasone propionate 50 mcg/actuation sprays intranasal guaifenesin 200 mg PO Q4H PRN insulin lispro protamin-lispro 100 unit/mL (75-25) (Humalog Mix 75-25 KwikPen) 26 units before breakfast and 14 units before dinner subcut 2 times a day; lancets (FreeStyle Lancets) As directed lisinopril 40 mg PO DAILY lorazepam 1 tab PO BID PRN naproxen 500 mg PO BID PRN 10 days pen needle, diabetic (BD Meg 2nd Gen Pen Needle) 2 times a day rosuvastatin 10 mg PO DAILY sitagliptin phosphate (Januvia) 100 mg PO DAILY 30 days tizanidine 4 mg PO Q6-8H PRN HPI Abnormal CTA HPI Details Claudia is a pleasant 62 year old female, never smoker, with underlying asthma, renal carcinoma s/p cryotherapy 2021 under the care of Dr. Chavez, GERD, HTN, DM, and h/o colon cancer in 2010, annual monitoring by Dr. Chacko. She was referred by PCP for pulmonary evaluation. She was evaluated in the [facility] on 05/26 for cough, fatigue, and chest pain. Troponins negative, EKG nonischemic, ddimer elevated and sent for CTA. Imaging revealed possible subsegmental pulmonary embolism of posterior RLL and started on eliquis 5 mg BID. No tenderness, erythema or swelling of calves, therefore ultrasound of LE not performed. However patient does note LLE painful while awaiting evaluation in the ED. During evaluation patient not tachypneic, tachycardic or hypoxic. She denies any recent trauma, surgery or hospitalization and notes COVID infection in Spring 2022. She reports mother from an embolism at 43 yrs old and brother with multiple CVAs. She also reports prior DVT/PE in her early 20s after cholecystectomy. She denies prior workup for hypercoagulable conditions. She has a history of malignancy and over the last few months has had night sweats as well as chills. She is established with Dr. Chacko and has an upcoming appt in August. At this time, she denies any respiratory symptoms and uses albuterol MDI PRN. [facility] Medical History Current non-adherence to medical treatment Emanuel's disease Non-toxic multinodular goiter Diabetic nephropathy associated with type 2 diabetes mellitus 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 Hypertension correction (current) use of insulin Cataract Colon cancer (~2010) Diabetes type 2, uncontrolled Vitamin D deficiency Surgical History History of esophagogastroduodenoscopy (EGD) History of kidney surgery H/O colonoscopy Hx of breast reduction, elective H/O total hysterectomy Hx of tonsillectomy Family History Maternal Aunt Esophageal cancer Breast cancer Brother Colon cancer Diabetes Brother Colon cancer Father Diabetes Sister Diabetes Sister Diabetes Social History (Updated 07/04/23 @ 13:34 by Linda Pino LPN) Household Members: None Housing: Apartment Alcohol intake: never Patient Tobacco Use Status: Never used Tobacco Second Hand Smoke Exposure: No Current occupational status: disabled 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 Review of Systems Const Denies excessive sweating, Denies fever(s) and Denies headache(s) Eyes Denies dry eyes, Denies irritation and Denies itchy eyes ENT Reports Normal hearing present, Denies headache(s), Denies nasal congestion, Denies nasal discharge, Denies post nasal drip and Denies sore throat Card Denies chest pain, Denies chest pain at rest, Denies chest pain with activity, Denies claudication, Denies leg edema, Denies dyspnea, Denies dyspnea on exertion, Denies orthopnea and Denies paroxysmal nocturnal dyspnea Resp Denies chest congestion, Denies cough, Denies excessive phlegm production, Denies pain on inspiration, Denies pain with cough, Denies dyspnea, Denies dyspnea on exertion, Denies stridor and Denies wheezing Musc Denies myalgias Neuro Reports Normal hearing present and Denies headache(s) Endo Denies excessive sweating Hair/Lymph Denies lymphadenopathy Aller/Immun Denies itchy eyes, Denies seasonal rhinorrhea and Denies wheezing Physical Exam Vital Signs: Last Vital Signs Pulse 84 07/04/23 13:27 BP 146/64 H 07/04/23 13:27 Pulse Ox 98 07/04/23 13:27 Oxygen Delivery Method Room Air 07/04/23 13:27 BMI result Body Mass Index 34.2 Const General: cooperative, healthy appearing, comfortable, no acute distress, well developed and alert Nutritional Appearance: obese Orientation/consciousness: patient oriented x3 Limitations: no limitations HEENT Head: Yes normal to inspection, Yes normocephalic and Yes atraumatic Ears: hearing grossly normal bilaterally and external ears normal Eyes General: appearance normal, both eyes and all related structures Eyelids: Yes eyelids normal Sclerae: sclerae normal EOM: EOMs intact bilaterally Neck Neck: Yes normal visual inspection and Yes no lymphadenopathy Lymphatic: no lymphadenopathy noted Chest Chest palpation & inspection: normal inspection of the chest Resp Effort & Inspection: normal respiratory effort, able to speak in complete sentences, no audible wheezes, no cough, no stridor, not tachypneic, no tripod positioning and no use of accessory muscles Auscultation: clear to auscultation bilaterally Cardio Jugular venous distension: no JVD Rate: regular rate Rhythm: regular rhythm Skin Other: warm, dry General skin exam: no rashes or lesions noted Neuro General: patient oriented x3 Cranial nerves: Yes Normal hearing present Cognition (Neuro): normal cognition Gait exam (Neuro): Normal gait present Extrem General: Yes normal to inspection, Yes capillary refill normal, Yes no clubbing, cyanosis or edema and Yes no pedal edema Psych Appearance: grossly normal and well kempt Speech and movement: Normal speech and movement present and Clear speech present Affect: normal affect Attitude: cooperative Thought process: Normal thought process present Thought content: Normal thought content present Insight: Good insight present (Psych) Judgement: Good judgement present (Psych) Results Reviewed Results Reviewed: CT Scan Report Signed Patient: Claudia Gordon MR#: [id number] : 1960 Acct:[id number] Age/Sex: 62 / F ADM Date: 05/26/23 Loc: HO.ED Attending Dr: Ordering Physician: Barbara Vasquez DO Date of Service: 05/26/23 Procedure(s): CT angio chest PE protocol Accession Number(s): [id number] cc: Barbara Vasquez DO; Natividad Peres MD~ EXAMINATION: CT ANGIOGRAM OF THE CHEST WITH AND WITHOUT CONTRAST (CT PULMONARY ANGIOGRAM FOR PE) CLINICAL INFORMATION: Reason for Exam L sided pain elevated ddimer COMPARISON: Previous chest x-ray from earlier the same day and chest CT April 2018 TECHNIQUE: Prior to contrast administration, noncontrast localization images were obtained. Subsequently, multidetector volumetric imaging was performed from the thoracic inlet to below the diaphragms following the administration of 65 mL Omnipaque 350 intravenous contrast. No contrast reaction reported Sagittal, coronal, and MIP oblique sagittal reformatted images were obtained on the CT workstation, uploaded to PACS, and reviewed. This CT examination was performed using dose optimization techniques as appropriate, variously including the following: *Automated exposure control *Adjustment of mA and/or kV according to patient size (this includes techniques or standardized protocols for targeted exams where dose is matched to indication/reason for exam; i.e. extremities or head) *Use of iterative reconstruction technique Total exam dose-length product 160 mGy-cm FINDINGS: QUALITY OF STUDY/CONTRAST BOLUS: Satisfactory. PULMONARY ARTERIES: Question small subsegmental posterior right lower lobe pulmonary embolism axial image 257 series 7. No other evidence of pulmonary emboli. THORACIC AORTA: No aneurysm. LUN mm peripheral or subpleural calcified right lower lobe nodule stable from April 2018 PLEURA: Focal left pleural thickening adjacent to the right upper lobe stable from April 2018.. No pleural effusion or pneumothorax. MEDIASTINUM: Enlargement of the left lobe of the thyroid gland. There are 2 adjacent 2 cm left thyroid nodules. These were evaluated by ultrasound and fine-needle aspiration June 2022. Enlarged heart. No pericardial effusion. No hilar or mediastinal lymphadenopathy. No evidence of septal bowing or right heart strain. CORONARY ARTERY CALCIFICATION: Mild CHEST WALL/AXILLA: No axillary or internal mammary lymphadenopathy. OSSEOUS STRUCTURES: Degenerative changes of the spine. UPPER ABDOMEN: The gallbladder has been removed. Calcification in the spleen. No reflux of contrast into the hepatic veins to suggest elevated right heart pressures. CT/CT angio chest PE protocol IMPRESSION: Question small solitary subsegmental right lower lobe pulmonary embolism. Correlation with leg ultrasound and short-term follow-up CT PA gram recommended. Slightly enlarged heart. Mild coronary artery calcification. Stable pulmonary findings. Enlarged left lobe of the thyroid gland and 2 adjacent 2 cm left thyroid nodules. These were evaluated by ultrasound and fine-needle aspiration June 2022. Dictated By: Thalia Spears MD Signed By: <Electronically signed by Thalia Spears MD in OV> Assessment & Plan Assessment & Plan (1) Pulmonary emboli: Code(s): I26.99 - Other pulmonary embolism without acute cor pulmonale (2) Pulmonary nodule: Code(s): R91.1 - Solitary pulmonary nodule (3) Renal cancer: Comment: 08/21 cryotherapy right lower pole Code(s): C64.9 - Malignant neoplasm of unspecified kidney, except renal pelvis (4) Asthma: Code(s): J45.909 - Unspecified asthma, uncomplicated Plan Claudia presents for pulmonary evaluation after recent evaluation in the ED for chest pain revealing possible subsegmental pulmonary embolism. She was started on Eliquis 5 mg BID by ED. During ED work up, US of BLE was not performed, as patient did not report any pain and there was no erythema or edema, will send for BLE US. Given patient's multiple risk factors including prior history of DVT/PE, family history of clots as well as prior history of malignancy, will refer back to Dr. Chacko for evaluation for hypercoagulable conditions. Will defer to Dr. Chacko to manage anticoagulation. In regards to asthma, will send for PFT to thoroughly evaluate. All questions were answered and patient is in agreement of plan. Will follow up after to review results of PFT. Orders: Orders US venous duplex LE LT Today I26.99 - Other pulmonary embolism without acute cor pulmonale US venous duplex LE RT Today I26.99 - Other pulmonary embolism without acute cor pulmonale PFT pulmonary function test Today J45.909 - Unspecified asthma, uncomplicated Coding Level of Care Code New Pt Level 4 (36274) Diagnoses Pulmonary emboli I26.99 Pulmonary nodule R91.1 Renal cancer C64.9 Asthma J45.909
[2023-07-04 13:27] VITALS: BP 146/64; PULSE 84; O2SAT 98; BMI 34.2
== END 2023-07-04 14:14 | disposition home or self-care (01) ==
PROVIDERS: PCP Family Medicine; Referring Provider Family Medicine; Visit Provider Nurse Practitioner Family
DX: I26.99 Other pulmonary embolism without acute cor pulmonale (principal); R91.1 Solitary pulmonary nodule; C64.9 Malignant neoplasm of unspecified kidney, except renal pelvis; J45.909 Unspecified asthma, uncomplicated
CPT/HCPCS: 99204

== ENCOUNTER → 2023-07-04 12:28 | Outpatient (BNVA) | payer OTHER, SELFPAY | PROVIDERS: PCP Family Medicine; Referring Provider Family Medicine; Visit Provider Nurse Practitioner Family | DX: I26.99 Other pulmonary embolism without acute cor pulmonale (principal); R91.1 Solitary pulmonary nodule; C64.9 Malignant neoplasm of unspecified kidney, except renal pelvis; J45.909 Unspecified asthma, uncomplicated | CPT/HCPCS: 99202 ==

== ENCOUNTER 2023-07-05 13:28 | Outpatient (REF) | payer OTHER, SELFPAY ==
--- NOTE | ~2023-07-05 | US_ITS ---
EXAMINATION: US VENOUS ULTRASOUND WITH DOPPLER LOWER EXTREMITY, BILATERAL CLINICAL INFORMATION: Lower extremity edema with PE on 05/26/2023 COMPARISON: None available. TECHNIQUE: Ultrasound of the deep veins is performed from the hip to the calf with compression sonography and color and pulse Doppler assessment. Spectral analysis with color-flow imaging is performed. FINDINGS: RIGHT: There is normal venous compression and respiratory variation and augmented flow. The visualized common femoral vein, superficial femoral vein, profunda femoral vein, popliteal vein, and the trifurcation region shows no evidence of deep venous thrombosis. There is no significant popliteal fossa cyst. LEFT: There is normal venous compression and respiratory variation and augmented flow. The visualized common femoral vein, superficial femoral vein, profunda femoral vein, popliteal vein, and the trifurcation region shows no evidence of deep venous thrombosis. The peroneal vein on the left was not visualized. There is no significant popliteal fossa cyst. If the patient's symptoms persist, followup ultrasound in 5 days 7 days might be of value to exclude proximal propagation from a non-visualized calf vein. US/US venous duplex LE BI IMPRESSION: No DVT demonstrated in either lower extremity.
== END 2023-07-05 13:29 | disposition home or self-care (01) ==
LOC: HO.US 13:28
PROVIDERS: PCP Family Medicine; Visit Provider Nurse Practitioner Family
DX: I26.99 Other pulmonary embolism without acute cor pulmonale (principal)
CPT/HCPCS: 93970

== ENCOUNTER 2023-07-15 14:38 | Outpatient (AMB) | payer OTHER, SELFPAY ==
--- NOTE | 2023-07-15 14:39 | A.OFFVIS_ITS ---
Intake Intake Visit Reasons: 6M/US(set) Intake Note: Patient presents today for a follow-up on U/S Meds- None Allergies to Antibiotic- Penicillins Blood Thinner- Eliquis Manager Parking Required: Yes Allergies leal [LEAL] Allergy (Severe, Verified 07/15/23 14:41) ANAPHYLAXIS cucumber Allergy (Severe, Verified 07/15/23 14:41) Shortness of Breath metoclopramide [From Reglan] Allergy (Severe, Verified 07/15/23 14:41) SEIZURE-LIKE ACTIVITIES Penicillins Allergy (Severe, Verified 07/15/23 14:41) Anaphylaxis oxycodone [From PERCOCET] Allergy (Mild, Verified 07/15/23 14:41) ITCHING Medication List - Last Reconciled 07/15/23 by Taras Chavez MD acetaminophen-codeine 300-30 mg 1 tab PO TID PRN albuterol sulfate 90 mcg/actuation (Ventolin HFA) 2 puffs inhalation Q4-6H PRN albuterol sulfate mg inhalation apixaban (Eliquis DVT-PE Treat 30D Start) 5 mg PO BID arm brace (Wrist Brace) comfort form wrist/thumb RT S blood sugar diagnostic (FreeStyle Lite Strips) 1 strip miscellaneous QID bupropion HCl 300 mg PO cholecalciferol (vitamin D3) 50 mcg PO DAILY cyclobenzaprine 5 mg PO Q8H PRN 5 days dapaglifloz propaned-metformin 5-1,000 mg ER (Xigduo XR) 1 tab PO BID esomeprazole magnesium 20 mg PO DAILY 90 days flash glucose scanning reader (FreeStyle Patti 2 [place]) As directed flash glucose sensor (FreeStyle Patti 2 Sensor kit) Once every 14 days fluticasone propionate 110 mcg/actuation (Flovent HFA) 1 puff PO BID fluticasone propionate 50 mcg/actuation sprays intranasal guaifenesin 200 mg PO Q4H PRN insulin lispro protamin-lispro 100 unit/mL (75-25) (Humalog Mix 75-25 KwikPen) 26 units before breakfast and 14 units before dinner subcut 2 times a day; lancets (FreeStyle Lancets) As directed lisinopril 40 mg PO DAILY lorazepam 1 tab PO BID PRN naproxen 500 mg PO BID PRN 10 days pen needle, diabetic (BD Meg 2nd Gen Pen Needle) 2 times a day rosuvastatin 10 mg PO DAILY sitagliptin phosphate (Januvia) 100 mg PO DAILY 30 days tizanidine 4 mg PO Q6-8H PRN HPI HPI Comments History of Present Illness Details Claudia is a pleasant female. Lithuanian speaker. She is a patient of Dr. Carrillo. She is seen for following urologic conditions - renal cancer Telemedicine Evaluation 15 min Consultation DoximTriCipher amarilys Video attempted Ultrasound stable scarring from cryotherapy Two years follow-up imaging Twelve month MRI performed which showed scarring right kidney Plan annual imaging per [facility] renal ablation follow-up guidelines Renal mass cryotherapy performed July 2021 Probable right renal lower pole 1.4 cm mass detected incidentally Evaluation for prior colon cancer Imaging - 05/23 right lower pole 1.4 cm exophytic mass suspicious for renal cancer - 12/21 CT right lower pole 1.5 cm scarri ng from prior cryotherapy - 06/24 renal ultrasound right lower pole scarring, left side small cyst - 12/22 MRI scarring prior cryotherapy ri ght lower pole - 06/25 renal ultrasound right lower pole scarring Laboratory investigations - 12/21 Cr 0.8 Cryotherapy July 2021 single needle 2 cycle Pathology Clear cell carcinoma Samm grade 2 Therapeutic plan 6m renal US PFS Medical History Current non-adherence to medical treatment Emanuel's disease Non-toxic multinodular goiter Diabetic nephropathy associated with type 2 diabetes mellitus 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 Cataract Colon cancer (~2010) Diabetes type 2, uncontrolled Vitamin D deficiency Surgical History History of esophagogastroduodenoscopy (EGD) History of kidney surgery H/O colonoscopy Hx of breast reduction, elective H/O total hysterectomy Hx of tonsillectomy Family History Maternal Aunt Esophageal cancer Breast cancer Brother Colon cancer Diabetes Brother Colon cancer Father Diabetes Sister Diabetes Sister Diabetes Social History Household Members: None Housing: Apartment Alcohol intake: never Patient Tobacco Use Status: Never used Tobacco Second Hand Smoke Exposure: No Current occupational status: disabled 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 Review of Systems Const All systems reviewed & are unremarkable except as noted in HPI and below Reports no additional complaints Resp Reports no additional complaints GI Reports no additional complaints Reports as per HPI Musc Reports no additional complaints Physical Exam Telemedicine evaluation Appropriate responses Regular breathing rate and rhythm HEENT Head: Yes normal to inspection Ears: hearing grossly normal bilaterally Eyes General: appearance normal, both eyes and all related structures Neck Neck: Yes normal visual inspection Chest Chest palpation & inspection: normal inspection of the chest Resp Effort & Inspection: normal respiratory effort and able to speak in complete sentences Assessment & Plan Assessment & Plan (1) Renal cancer: Comment: 08/21 cryotherapy right lower pole Code(s): C64.9 - Malignant neoplasm of unspecified kidney, except renal pelvis Plan Twelve month follow-up renal MRI with chest x-ray Orders: Orders Blood Urea Nitrogen 364 Days C64.9 - Malignant neoplasm of unspecified kidney, except renal pelvis MR kidney wo/w con 12 Months C64.9 - Malignant neoplasm of unspecified kidney, except renal pelvis XR chest 1V 1 Year C64.9 - Malignant neoplasm of unspecified kidney, except renal pelvis Creatinine 364 Days C64.9 - Malignant neoplasm of unspecified kidney, except renal pelvis Patient Instructions: Imaging studies, laboratory and physical exam results were discussed and reviewed in detail. No major barriers to patient understanding were identified. An opportunity to ask questions regarding the treatment plan was provided. All questions were answered. The patient expressed understanding and agreement with the above treatment plan. The patient is aware they should contact our office by phone for worsening of their current condition or the appearance of new urologic symptoms. Compliance is encouraged with any medications and followup testing that is ordered. It is a privilege to participate in the urologic care of your patient. If you have any questions or concerns regarding treatment for the above conditions, or other urologic issues, please do not hesitate to contact me. The office telephone contact is [phone]. This note is constructed using voice recognition software. While every effort has been made to ensure accuracy legal officer errors may have been included. Yours sincerely, Dr Taras Chavez MD, [facility] - Urology Providers of Expert, Compassionate Care for the Genitourinary System Telehealth Telehealth Location of provider rendering services: practice address Location of patient: address on file Patient Identification confirmed using: Name, : Yes Telehealth method: video Patient verbally consented to treatment: Yes Patient verbally consented to billing insurance company: Yes Patient informed of any privacy concerns related to visit: Yes Minutes spent on Phone/Video with Pt.: 18 Coding Level of Care Code Tele Est Pt Level 4 (87180) Diagnoses Renal cancer C64.9
== END 2023-07-15 15:04 | disposition home or self-care (01) ==
LOC: HO.HUSH 14:38
PROVIDERS: PCP Family Medicine; Visit Provider Urology
DX: C64.9 Malignant neoplasm of unspecified kidney, except renal pelvis (principal)
CPT/HCPCS: 99213

== ENCOUNTER → 2023-07-15 14:38 | Outpatient (BNVA) | payer OTHER, SELFPAY | PROVIDERS: PCP Family Medicine; Visit Provider Urology ==

== ENCOUNTER 2023-07-20 11:25 | Outpatient (REF) | payer OTHER, SELFPAY ==
[2023-07-20 11:16] VITALS: PULSE 84; RESP 14; O2SAT 97
[2023-07-20 13:22] LABS: Blood Urea Nitrogen 14 mg/dL (9-16); Estimated Glomerular Filt Rate > 60
--- NOTE | 2023-07-20 13:55 | PFT_ITS ---
Flows: FEV1: 80 % of predicted at 1.74 L FVC: 78 % of predicted at 2.14 L FEV1/FVC: 81 % Bronchodilator response: Absent Volumes: Total lung capacity: 69 % of predicted at 3.16 L Residual volume: 66 % of predicted at 1.06 L Slow vital capacity: 71 % of predicted at 2.10 L Expiratory reserve volume: 70 % of predicted at 0.49 L Diffusion capacity: Normal Impression: Mild restrictive ventilatory defect with no bronchodilator response. MTDD
== END 2023-07-20 11:26 | disposition home or self-care (01) ==
LOC: HO.RESP 11:25
PROVIDERS: Urology; Absent Provider Internal Medicine Gastroenterology; PCP Family Medicine; Visit Provider Nurse Practitioner Family
DX: J45.909 Unspecified asthma, uncomplicated (principal); C64.9 Malignant neoplasm of unspecified kidney, except renal pelvis
CPT/HCPCS: 36415; 82565; 84520; 94010; 94640; 94727; 94729

== ENCOUNTER → 2023-07-20 13:55 | Outpatient (BNV) | payer OTHER, SELFPAY | PROVIDERS: Absent Provider Internal Medicine Gastroenterology; PCP Family Medicine; Visit Provider Internal Medicine Pulmonary Disease | DX: J45.909 Unspecified asthma, uncomplicated (principal) | CPT/HCPCS: 94060; 94727; 94729 ==

== ENCOUNTER 2023-08-01 12:25 | Outpatient (AMB) | payer OTHER, SELFPAY ==
[2023-08-01 13:08] VITALS: BP 146/80; PULSE 78; O2SAT 98; BMI 33.9
--- NOTE | 2023-08-01 13:08 | A.OFFVIS_ITS ---
Intake Vital Signs 08/01/23 13:08 Height 5 ft 1 in Weight 179 lb 10.828 oz BMI 33.9 BP 146/80 H Blood Pressure Location Lt brachial Position Sitting Pulse 78 Pulse Source Pulse Oximeter Pulse Oximetry (%) 98 Oxygen Delivery Method Room Air Intake Visit Reasons: Abnormal CTA Personal Development Educator Required: No Route Delivery Supervisor: Route Delivery Supervisor offered & declined Accompanied by: Sister Allergies leal [LEAL] Allergy (Severe, Verified 08/01/23 13:15) ANAPHYLAXIS cucumber Allergy (Severe, Verified 08/01/23 13:15) Shortness of Breath metoclopramide [From Reglan] Allergy (Severe, Verified 08/01/23 13:15) SEIZURE-LIKE ACTIVITIES Penicillins Allergy (Severe, Verified 08/01/23 13:15) Anaphylaxis oxycodone [From PERCOCET] Allergy (Mild, Verified 08/01/23 13:15) ITCHING Medication List - Last Reconciled 08/01/23 by Linda Pino LPN acetaminophen-codeine 300-30 mg 1 tab PO TID PRN albuterol sulfate 90 mcg/actuation (Ventolin HFA) 2 puffs inhalation Q4-6H PRN albuterol sulfate 2.5 mg inhalation DAILY apixaban (Eliquis DVT-PE Treat 30D Start) 5 mg PO BID arm brace (Wrist Brace) comfort form wrist/thumb RT S blood sugar diagnostic (FreeStyle Lite Strips) 1 strip miscellaneous QID cholecalciferol (vitamin D3) 50 mcg PO DAILY dapaglifloz propaned-metformin 5-1,000 mg ER (Xigduo XR) 1 tab PO BID esomeprazole magnesium 20 mg PO DAILY 90 days flash glucose scanning reader (FreeStyle Patti 2 [place]) As directed flash glucose sensor (FreeStyle Patti 2 Sensor kit) Once every 14 days fluticasone propionate 110 mcg/actuation (Flovent HFA) 1 puff PO BID fluticasone propionate 50 mcg/actuation 50 sprays intranasal DAILY insulin lispro protamin-lispro 100 unit/mL (75-25) (Humalog Mix 75-25 KwikPen) 26 units before breakfast and 14 units before dinner subcut 2 times a day; lancets (FreeStyle Lancets) As directed lisinopril 40 mg PO DAILY lorazepam 1 tab PO BID PRN naproxen 500 mg PO BID PRN 10 days pen needle, diabetic (BD Meg 2nd Gen Pen Needle) 2 times a day rosuvastatin 10 mg PO DAILY sitagliptin phosphate (Januvia) 100 mg PO DAILY 30 days HPI Abnormal CTA HPI Details Claudia is a pleasant 62 year old female, never smoker, with underlying asthma, renal carcinoma s/p cryotherapy 2021 under the care of Dr. Chavez, GERD, HTN, DM, and h/o colon cancer in 2010, annual monitoring by Dr. Chacko. She was referred by PCP for pulmonary evaluation. She was evaluated in the [facility] ED on 05/26 for cough, fatigue, and chest pain. Troponins negative, EKG nonischemic, ddimer elevated and sent for CTA. Imaging revealed possible subsegmental pulmonary embolism of posterior RLL and started on eliquis 5 mg BID. At the last visit she was sent for US of LLE as she reported LLE discomfort which was unremarkable and has been tolerating eliquis. She initally denied any respiratory symptoms however reports dry cough with intermittent chest tightness which she attributes to weather changes and has been using ventolin with good effect. She has discontinued her Flovent. She was evaluated by Dr. Chacko after being diagnosed with PE, who ordered a hypercoagulable workup as well as follow up CTA. Today Claudia presents to review PFT. 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 Cataract Colon cancer (~2010) Diabetes type 2, uncontrolled Vitamin D deficiency Surgical History History of esophagogastroduodenoscopy (EGD) History of kidney surgery H/O colonoscopy Hx of breast reduction, elective H/O total hysterectomy Hx of tonsillectomy Family History Maternal Aunt Esophageal cancer Breast cancer Brother Colon cancer Diabetes Brother Colon cancer Father Diabetes Sister Diabetes Sister Diabetes Social History (Updated 08/01/23 @ 13:19 by Linda Pino LPN) Household Members: None Housing: Apartment Alcohol intake: never Patient Tobacco Use Status: Never used Tobacco Second Hand Smoke Exposure: No Current occupational status: disabled 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 Review of Systems Const Denies chills, Denies excessive sweating, Denies fever(s), Denies headache(s) and Denies night sweats Eyes Denies dry eyes and Denies itchy eyes ENT Reports Normal hearing present, Denies headache(s), Denies nasal congestion, Denies nasal discharge, Denies post nasal drip and Denies sore throat Card Denies chest pain, Denies chest pain at rest, Denies chest pain with activity, Denies claudication, Denies leg edema, Denies orthopnea and Denies paroxysmal nocturnal dyspnea Resp Denies chest congestion, Denies excessive phlegm production, Denies pain on inspiration, Denies pain with cough, Denies stridor and Denies wheezing Musc Denies myalgias Neuro Reports Normal hearing present and Denies headache(s) Endo Denies excessive sweating Hair/Lymph Denies lymphadenopathy Aller/Immun Denies itchy eyes, Denies seasonal rhinorrhea and Denies wheezing Physical Exam Vital Signs: Last Vital Signs Pulse 78 08/01/23 13:08 BP 146/80 H 08/01/23 13:08 Pulse Ox 98 08/01/23 13:08 Oxygen Delivery Method Room Air 08/01/23 13:08 BMI result Body Mass Index 33.9 Const General: cooperative, healthy appearing, comfortable, no acute distress, well developed and alert Nutritional Appearance: obese Orientation/consciousness: patient oriented x3 Limitations: no limitations HEENT Head: Yes normal to inspection, Yes normocephalic and Yes atraumatic Ears: hearing grossly normal bilaterally and external ears normal Eyes General: appearance normal, both eyes and all related structures Eyelids: Yes eyelids normal Sclerae: sclerae normal EOM: EOMs intact bilaterally Neck Neck: Yes normal visual inspection and Yes no lymphadenopathy Lymphatic: no lymphadenopathy noted Chest Chest palpation & inspection: normal inspection of the chest Resp Effort & Inspection: normal respiratory effort, able to speak in complete sentences, no audible wheezes, no cough, no stridor, not tachypneic, no tripod positioning and no use of accessory muscles Auscultation: clear to auscultation bilaterally Cardio Jugular venous distension: no JVD Rate: regular rate Rhythm: regular rhythm Skin Other: warm, dry General skin exam: no rashes or lesions noted Neuro General: patient oriented x3 Cranial nerves: Yes Normal hearing present Cognition (Neuro): normal cognition Gait exam (Neuro): Normal gait present Extrem General: Yes normal to inspection, Yes capillary refill normal, Yes no clubbing, cyanosis or edema and Yes no pedal edema Psych Appearance: grossly normal and well kempt Speech and movement: Normal speech and movement present and Clear speech present Affect: normal affect Attitude: cooperative Thought process: Normal thought process present Thought content: Normal thought content present Insight: Good insight present (Psych) Judgement: Good judgement present (Psych) Assessment & Plan Assessment & Plan (1) Pulmonary emboli: Code(s): I26.99 - Other pulmonary embolism without acute cor pulmonale (2) Pulmonary nodule: Code(s): R91.1 - Solitary pulmonary nodule (3) Renal cancer: Comment: 08/21 cryotherapy right lower pole Code(s): C64.9 - Malignant neoplasm of unspecified kidney, except renal pelvis (4) Asthma: Code(s): J45.909 - Unspecified asthma, uncomplicated Plan Claudia was recently diagnosed with a subsegmental pulmonary embolism and started on Eliquis 5 mg BID. She reported a family history of clots as well as prior history of malignancy, so is undergoing evaluation for hypercoagulable conditions with Dr. Chacko as well as repeat CTA, scheduled for August. Reviewed PFT which revealed mild restrictive defect with no response to bronchodilators. Patient reports increasing respiratory symptoms with the change of season, rec ommended to restart Flovent. Of note, patient reported concerns with blood glucose and worsening blurry vision. She has an upcoming appointment with ophthalmology in August however recommended patient seek emergent care, which she declined. All questions were answered and patient is in agreement of plan. Will follow up after to review results of CTA and response to Flovent. Medications: New fluticasone propionate 110 mcg/actuation 1 puff inhalation BID 12 grams 3RF Coding Level of Care Code Est Pt Level 4 (01847) Diagnoses Pulmonary emboli I26.99 Pulmonary nodule R91.1 Renal cancer C64.9 Asthma J45.909
== END 2023-08-01 13:56 | disposition home or self-care (01) ==
PROVIDERS: PCP Family Medicine; Visit Provider Nurse Practitioner Family
DX: I26.99 Other pulmonary embolism without acute cor pulmonale (principal); R91.1 Solitary pulmonary nodule; C64.9 Malignant neoplasm of unspecified kidney, except renal pelvis; J45.909 Unspecified asthma, uncomplicated
CPT/HCPCS: 99214

== ENCOUNTER → 2023-08-01 12:25 | Outpatient (BNVA) | payer OTHER, SELFPAY | PROVIDERS: PCP Family Medicine; Visit Provider Nurse Practitioner Family | DX: J45.909 Unspecified asthma, uncomplicated (principal); I26.99 Other pulmonary embolism without acute cor pulmonale; R91.1 Solitary pulmonary nodule; Z85.038 Personal history of other malignant neoplasm of large intestine | CPT/HCPCS: 99212 ==

== ENCOUNTER 2023-08-17 09:22 | Outpatient (REF) | payer OTHER, SELFPAY ==
[2023-08-17 09:47] LABS: MANUAL DIFF FLAG NO
[2023-08-17 09:58] LABS: Basophils Percent Auto 0.5 % (0-2); Eosinophils Absolute Auto 0.5 X10*3/uL (0.0-0.4); Eosinophils Percent Auto 6.2 % (0-4); Hematocrit 35.1 % (37.0-47.0); Hemoglobin 10.7 g/dl (12.0-16.0); Imm Gran Abs Auto 0.03 X10*3/uL (0.00-0.03); Imm Gran Pct Auto 0.4 % (0.0-0.4); Lymphocytes Absolute Auto 2.2 X10*3/uL (1.2-4.9); Lymphocytes Percent Auto 29.1 % (20-40); Mean Corpuscular HGB Conc 30.5 g/dl (31.0-35.0); Mean Corpuscular Hemoglobin 25.2 pg (27.0-33.0); Mean Corpuscular Volume 82.8 fL (80.0-98.0); Mean Platelet Volume 11.4 fL (9.4-12.3); Monocytes Absolute Auto 0.6 X10*3/uL (0.1-1.2); Monocytes Percent Auto 7.7 % (2-11); Neutrophils Absolute Auto 4.3 x10*3/uL (2.0-8.3); Neutrophils Percent Auto 56.1 % (45-73); Platelet Count 205 X10*3/uL (160-400); Red Blood Count 4.24 X10*6/uL (4.20-5.50); Red Cell Distribution Width 15.5 % (11.0-16.0); White Blood Count 7.6 X10*3/uL (4.8-10.8)
[2023-08-17 10:05] LABS: Alanine Aminotransferase 15 U/L (0-31); Albumin Level 3.9 g/dL (3.5-5.0); Alkaline Phosphatase 104 U/L (39-117); Anion Gap 11 (12-20); Aspartate Amino Transferase 15 U/L (5-31); Bilirubin Total 0.3 mg/dL (0.0-1.0); Blood Urea Nitrogen 15 mg/dL (9-16); Calcium 8.7 mg/dL (8.4-10.2); Carbon Dioxide 27 mmol/L (22-29); Chloride 107 mmol/L (96-108); Estimated Glomerular Filt Rate > 60; Glucose Random 206 mg/dL (60-115); Potassium 4.1 mmol/L (3.3-5.1); Sodium 141 mmol/L (135-145); Total Protein 6.9 g/dL (6.5-8.0)
[2023-08-17 10:54] LABS: INTERNATIONAL NORM RATIO 0.9 (0.9-1.1)
[2023-08-17 10:56] LABS: Partial Thromboplastin Time 28.6 SEC (26.0-36.8)
[2023-08-18 18:39] LABS: Homocysteine 10.7 umol/L (<10.4)
[2023-08-18 22:48] LABS: Cardiolipin IgG Ab <2.0 GPL-U/mL; Cardiolipin IgM Ab 2.2 MPL-U/mL
[2023-08-19 21:28] LABS: Anti-Thrombin III Antigen 109 % normal (80-120)
[2023-08-20 00:04] LABS: Protein C Activity 85 % normal (70-180); Protein S Activity rflx Tot&Fr 94 % normal (60-140)
[2023-08-23 22:39] LABS: PTT (LAC) Screen 32 sec (<=40)
[2023-08-24 18:53] LABS: Factor V Leiden NEGATIVE
[2023-08-29 16:28] LABS: Prothrombin 20210A NEGATIVE
== END 2023-08-17 09:23 | disposition home or self-care (01) ==
LOC: HO.LAB 09:22
PROVIDERS: Absent Provider Internal Medicine Gastroenterology; PCP General Practice; Referring Provider Internal Medicine Medical Oncology; Visit Provider Nurse Practitioner Family
DX: C64.9 Malignant neoplasm of unspecified kidney, except renal pelvis (principal); I26.99 Other pulmonary embolism without acute cor pulmonale
CPT/HCPCS: 36415; 80053; 81240; 81241; 83090; 85025; 85301; 85302; 85303; 85306; 85597; 85598; 85610; 85613; 85730; 86147

== ENCOUNTER 2023-09-01 09:14 | Outpatient (REF) | payer OTHER, SELFPAY ==
--- NOTE | ~2023-09-01 | US_ITS ---
EXAMINATION: US THYROID CLINICAL INFORMATION: Nontoxic multinodular goiter. COMPARISON: Ultrasound soft tissue head/neck thyroid dated 07/02/2021 and 03/26/2020. TECHNIQUE: Linear transducer grayscale and color Doppler examination with attention to the region of the thyroid. FINDINGS: SIZE: Measurements of the thyroid lobes and nodules are given in sagittal, anteroposterior and transverse dimensions respectively. Right Thyroid Lobe: 5.8 x 2.5 x 1.7 cm, volume 11.2 mL. Previously 5.7 x 2.6 x 1.9 cm, volume 14.7 mL. Parenchyma: The gland echotexture is heterogeneous. Thyroid vascularity is normal. Left Thyroid Lobe: 5.5 x 3.6 x 2.9 cm, volume 26.9 mL. Previously 4.9 x 3.1 x 3.0 cm, volume 23.8 mL. Parenchyma: The gland echotexture is heterogeneous. Thyroid vascularity is normal. Isthmus: 0.9 cm in maximum AP dimension. Previously 0.9 cm. Estimated total number of nodules greater than or equal to 1 cm: 5. Mobile Crane Operator nodules are described as follows: 1. Location: Left superior. Size: 2.8 x 1.6 x 2.6 cm, volume 6.1 mL. Previously: Not measured on the previous study. Nodule characteristics: Composition: Mixed cystic and solid (1). Echogenicity: Isoechoic (1). Shape: Not taller than wide (0). Margins: Ill-defined (0). Echogenic Foci: None (0). ACR TI-RADS total points: 2 ACR TI-RADS category: 2 2. Location: Left mid. Size: 3.6 x 2.2 x 2.4 cm, volume 9.9 mL. Previously: 2.6 x 1.6 x 1.7 cm, volume 3.7 mL. Nodule characteristics: Composition: Mixed cystic and solid (1). Echogenicity: Isoechoic (1). Shape: Not taller than wide (0). Margins: Ill-defined (0). Echogenic Foci: None (0). ACR TI-RADS total points: 2 Previous: 4 ACR TI-RADS category: 2 Previous: 4 Significant change in size (>/= 20% in 2 dimensions and minimal increase of 2 mm or 50% or greater increase in volume): Yes Change in features: Yes Change in ACR TI-RADS risk category: Yes 3. Location: Left superior. Size: 2.0 x 1.4 x 1.4 cm, volume 2.0 mL. Previously: 2.1 x 1.2 x 2.2 cm, volume 3.0 mL. Nodule characteristics: Composition: Solid (2). Echogenicity: Isoechoic (1). Shape: Not taller than wide (0). Margins: Smooth (0). Echogenic Foci: None (0). ACR TI-RADS total points: 3 Previous: 4 ACR TI-RADS category: 3 Previous: 4 Significant change in size (>/= 20% in 2 dimensions and minimal increase of 2 mm or 50% or greater increase in volume): No Change in features: Yes Change in ACR TI-RADS risk category: Yes 4. Location: Left inferior. Size: 1.7 x 2.0 x 2.0 cm, volume 3.6 mL. Previously: 1.5 x 1.9 x 1.6 cm, volume 2.2 mL. Nodule characteristics: Composition: Solid (2). Echogenicity: Isoechoic (1). Shape: Not taller than wide (0). Margins: Smooth (0). Echogenic Foci: None (0). ACR TI-RADS total points: 3 Previous: 7 ACR TI-RADS category: 3 Previous: 5 Significant change in size (>/= 20% in 2 dimensions and minimal increase of 2 mm or 50% or greater increase in volume): Yes Change in features: Yes Change in ACR TI-RADS risk category: Yes 5. Location: Right inferior. Size: 0.8 x 0.7 x 0.8 cm, volume 0.3 mL. Previously: 0.8 x 0.4 x 0.8 cm, volume 0.1 mL. Nodule characteristics: Composition: Solid (2). Echogenicity: Hyperechoic (1). Shape: Not taller than wide (0). Margins: Ill-defined (0). Echogenic Foci: Macrocalcifications (1). ACR TI-RADS total points: 4 Previous: 4 ACR TI-RADS category: 4 Previous: 4 Significant change in size (>/= 20% in 2 dimensions and minimal increase of 2 mm or 50% or greater increase in volume): Yes Change in features: No Change in ACR TI-RADS risk category: No NODES: No lymphadenopathy is seen in the tissue surrounding the thyroid gland. US/US thyroid IMPRESSION: 1. Bilateral thyroid nodules are seen, as detailed. Recommend continued thyroid ultrasound surveillance. 2. There is an asymmetric goiter, left lobe greater than right. 3. There is heterogeneous thyroid echotexture, which can be associated with thyroiditis. ACR TI-RADS RECOMMENDATION REFERENCE: Ultrasound-guided fine-needle aspiration, follow up ultrasound, no further followup. * TR1 (0 point) and TR2 (2 points): No FNA or followup * TR3 (3 points): FNA if more than or equal to 2.5 cm in maximum dimension, follow up ultrasound in 1, 3 and 5 years if 1.5 to 2.4 cm in maximum dimension. * TR4 (4-6 points): FNA if more than or equal to 1.5 cm in maximum dimension, follow up ultrasound in 1, 2, 3 and 5 years if 1 to 1.4 cm in maximum dimension. * TR5 (more than or equal to 7 points): FNA if more than or equal to 1 cm in maximum dimension, follow up ultrasound every year for 5 years if 0.5 to 0.9 cm in maximum dimension. * TR3, TR4 or TR5 nodules that are below the size threshold for follow up receive no followup.
== END 2023-09-01 09:15 | disposition home or self-care (01) ==
LOC: HO.US 09:14
PROVIDERS: PCP Family Medicine; Visit Provider Internal Medicine Endocrinology, Diabetes & Metabolism
DX: E04.2 Nontoxic multinodular goiter (principal)
CPT/HCPCS: 76536

== ENCOUNTER 2023-09-06 18:38 | Emergency (ER) | payer OTHER, SELFPAY ==
--- NOTE | 2023-09-06 | ECG_ITS ---
Test Reason : CP Blood Pressure : / mmHG Vent. Rate : 076 BPM Atrial Rate : 076 BPM P-R Int : 164 ms QRS Dur : 078 ms QT Int : 390 ms P-R-T Axes : 059 030 026 degrees QTc Int : 438 ms Normal sinus rhythm Normal ECG When compared to the previous EKG of No significant changes seen Referred By: Bee Bales Electronically Signed By:Esa Macario
--- NOTE | ~2023-09-06 | CT_ITS ---
EXAMINATION: CT ANGIOGRAM OF THE CHEST WITH AND WITHOUT CONTRAST (CT PULMONARY ANGIOGRAM FOR PE) CLINICAL INFORMATION: Left-sided chest pain, hx PEs on eliquis COMPARISON: CTA from 05/26/2023 TECHNIQUE: Prior to contrast administration, noncontrast localization images were obtained. Subsequently, multidetector volumetric imaging was performed from the thoracic inlet to below the diaphragms following the administration of 72 mL Omnipaque 350 intravenous contrast. No contrast reaction reported Sagittal, coronal, and MIP oblique sagittal reformatted images were obtained on the CT workstation, uploaded to PACS, and reviewed. This CT examination was performed using dose optimization techniques as appropriate, variously including the following: *Automated exposure control *Adjustment of mA and/or kV according to patient size (this includes techniques or standardized protocols for targeted exams where dose is matched to indication/reason for exam; i.e. extremities or head) *Use of iterative reconstruction technique Total exam dose-length product 375 mGy-cm FINDINGS: QUALITY OF STUDY/CONTRAST BOLUS: Satisfactory. PULMONARY ARTERIES: No pulmonary emboli. Previously seen pulmonary embolus in the right lower lobe has resolved. THORACIC AORTA: No aneurysm. Scattered atherosclerotic wall calcifications. LUNG: No focal consolidation, nodules or masses. Calcified granuloma again seen in the right lower lobe. PLEURA: No pleural effusion or pneumothorax. MEDIASTINUM: Normal heart size. No pericardial effusion. No hilar or mediastinal lymphadenopathy. No evidence of septal bowing or right heart strain. Left-sided thyroid goiter again seen. CORONARY ARTERY CALCIFICATION: Present CHEST WALL/AXILLA: No axillary or internal mammary lymphadenopathy. OSSEOUS STRUCTURES: No acute or suspicious osseous abnormality. UPPER ABDOMEN: Unremarkable. No reflux of contrast into the hepatic veins to suggest elevated right heart pressures. CT/CT angio chest PE protocol IMPRESSION: 1. No evidence of pulmonary embolism. Previously seen pulmonary embolus in the right lower lobe has resolved. 2. No acute pulmonary process. VTE: negative.
[2023-09-06 18:54] VITALS: BP 136/74; PULSE 78; O2SAT 99
[2023-09-06 19:08] VITALS: BP 168/55; PULSE 80; RESP 18; TEMP 36.3; O2SAT 96
[2023-09-06 19:43] VITALS: BMI 16.3
[2023-09-06 19:55] VITALS: PULSE 85
--- NOTE | 2023-09-06 20:00 | ED_ITS ---
HPI - Chest Pain General Chief Complaint: Chest Pain Stated Complaint: l SIDED CHEST PAIN Time Seen by Provider: 09/06/23 19:33 Source: patient Mode of arrival: ambulatory Limitations: no limitations History of Present Illness HPI narrative: Patient comes in the emergency room complaining of 4-5 days of chest pain. Patient states that she is scared of the chest pain because less than 2 months ago she was diagnosed with a pulmonary embolism. Patient states that she is very compliant taking her Eliquis. Patient denies any palpitations, no shortness of breath. Patient states that the chest pain that she is experiencing now was similar to the 1 she had when a pulmonary embolism was diagnosed. Related Data Home Medications ?Medication ?Instructions ?Recorded ?Confirmed albuterol sulfate 90 mcg/actuation 2 puff inhalation Q4-6H PRN 03/11/20 08/19/23 aerosol inhaler (Ventolin HFA) Wheezing lorazepam 1 mg tablet 1 tab PO BID PRN anxiety 03/11/20 08/19/23 acetaminophen 300 mg-codeine 30 mg 1 tab PO TID PRN Pain 03/25/20 08/19/23 tablet albuterol sulfate 2.5 mg/3 mL 2.5 mg inhalation DAILY 03/25/20 08/19/23 (0.083 %) solution for nebulization lisinopril 40 mg tablet 40 mg PO DAILY 03/25/20 08/19/23 fluticasone propionate 110 1 puff PO BID 05/14/21 08/19/23 mcg/actuation HFA aerosol inhaler (Flovent HFA) fluticasone propionate 50 50 spray intranasal DAILY 07/16/21 08/19/23 mcg/actuation nasal spray,suspension insulin lispro protamine-lispro See Rx Instructions subcut BID 03/29/22 08/19/23 100 unit/mL (75-25) subcutaneous pen (Humalog Mix 75-25 KwikPen) Previous Rx's ?Medication ?Instructions ?Recorded naproxen 500 mg tablet 500 mg PO BID PRN pain 10 days #20 03/10/20 tabs arm brace (Wrist Brace) #1 ea 04/09/20 lancets 28 gauge (FreeStyle #400 ea 05/21/21 Lancets) pen needle, diabetic 32 gauge x #100 ea 10/09/21 (BD Meg 2nd Gen Pen Needle) cholecalciferol (vitamin D3) 50 50 mcg PO DAILY #30 caps 10/26/21 mcg (2,000 unit) capsule rosuvastatin 10 mg tablet 10 mg PO DAILY #30 tabs 10/26/21 sitagliptin phosphate 100 mg 100 mg PO DAILY 30 days #30 tabs 12/23/21 tablet (Januvia) dapagliflozin propaned 5 1 tab PO BID #60 ea 12/25/21 mg-metformin ER 1,000 mg tablet, ext rel 24hr (Xigduo XR) flash glucose scanning reader #1 ea 03/04/22 (FreeStyle Patti 2 Terrell) flash glucose sensor (FreeStyle #3 ea 03/04/22 Patti 2 Sensor kit) blood sugar diagnostic (FreeStyle 1 strip miscellaneous QID #400 01/24/23 Lite Strips) strips esomeprazole magnesium 20 mg 20 mg PO DAILY 90 days #90 caps 05/12/23 capsule,delayed release apixaban 5 mg (74 tabs) tablets in 5 mg PO BID #74 ea 05/26/23 a dose pack ([facility] DVT-PE Treat 30D Start) fluticasone propionate 110 1 puff inhalation BID #12 grams 08/01/23 mcg/actuation HFA aerosol inhaler Allergies Allergy/AdvReac Type Severity Reaction Status Date / Time leal [LEAL] Allergy Severe ANAPHYLAXIS Verified 09/06/23 19:54 cucumber Allergy Severe Shortness Verified 09/06/23 19:54 of Breath metoclopramide [From Reglan] Allergy Severe SEIZURE-LIKE Verified 09/06/23 19:54 ACTIVITIES Penicillins Allergy Severe Anaphylaxis Verified 09/06/23 19:54 oxycodone [From PERCOCET] Allergy Mild ITCHING Verified 09/06/23 19:54 Review of Systems 2 Review of Systems: Constitutional : No Weight loss, No Fever, No Chills, No Night Sweats, No Fatigue, No Malaise ENT/Mouth : No Hearing loss, No Ear Pain, No Nasal Congestion, No Sinus Pain, No Hoarseness, No sore throat, No Rhinorrhea, No Swallowing Difficulty Eyes: No Eye Pain, No Swelling, No Redness, No Foreign Body, No Discharge, No Vision Changes Cardiovascular : Complaining of 4-5 days of chest pain, No SOB, No Dyspnea on Exertion, No Orthopnea, No Edema, No Palpitations Respiratory : No Cough, No Sputum, No Wheezing, No Smoke Exposure, No Dyspnea Gastrointestinal : No Nausea, No Vomiting, No Diarrhea, No Constipation, No abdominal Pain, No Hematochezia, No Melena Genitourinary : no irregular bleeding, No Dysuria, No Urinary Frequency, No Hematuria, No Urinary Incontinence, No Urgency, No Flank Pain, No Urinary Flow Changes, No Hesitancy Musculoskeletal : No joint pain, No Myalgias, No Joint Swelling Skin : No Skin Lesions, No rash Neuro : No Weakness, No Numbness, No Paresthesias, No Loss of Consciousness, No Dizziness, No Headache Psych : No Anxiety/Panic, No Depression, No SI/HI/AH/VH, No Social Issues, Heme/Lymph: No Bruising, No Bleeding,No Lymphadenopathy Endocrine : No Polyuria, No Polydipsia, No Temperature Intolerance [facility] Past Medical History Medical History Current non-adherence to medical treatment Emanuel's disease Non-toxic multinodular goiter Diabetic nephropathy associated with type 2 diabetes mellitus 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 Cataract Colon cancer (~2010) Diabetes type 2, uncontrolled Vitamin D deficiency Surgical History History of esophagogastroduodenoscopy (EGD) History of kidney surgery H/O colonoscopy Hx of breast reduction, elective H/O total hysterectomy Hx of tonsillectomy Family History Family History Maternal Aunt Esophageal cancer Breast cancer Brother Colon cancer Diabetes Brother Colon cancer Father Diabetes Sister Diabetes Sister Diabetes Social History Social History Household Members: None Housing: Apartment Alcohol intake: never Patient Tobacco Use Status: Never used Tobacco Smoked in Last 30 Days: No Second Hand Smoke Exposure: No Use of substances other than those prescribed or required for medical reasons: No Advance Directives: No Advance Directives Information Provided: No Do you have a plan to hurt others: No Plan Patient : No Current occupational status: disabled 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 Oriented X3. No acute distress. Eyes: Pupils equal, round and reactive to light. ENT: Pharynx normal. Neck: Normal inspection. Neck supple. No lymph nodes noted. No crepitus CVS: Normal heart rate and rhythm. Pulses normal. Normal S1 and S2 Respiratory: No respiratory distress. Breath sounds normal. No Wheezing. No rales Abdomen: Soft and nontender. No rigidity. No distention. Skin: Skin warm and dry. Normal skin color. Normal skin turgor. Extremities: No lower extremity edema. No Lacerations. No Rash Neuro: Oriented X 3. No motor deficit. No sensory deficit. Moving all extremities. No slurred speech. CN 2 through 12 grossly intact Psych: calm, cooperative, normal affect Medications Administered Discontinued Medications Generic Name Dose Route Start Last Admin Trade Name Freq PRN Reason Stop Dose Admin Iohexol 100 ml 09/06/23 21:52 09/06/23 21:52 Iohexol 350 Mg/Ml 100 Ml Infus..Btl IV 09/06/23 21:53 75 ml ONCE ONE Administration Medical Decision Making Medical Decision Making [facility] Narrative: -my interpretation of labs: Hematology at baseline, chemistry within normal limits, troponin negative. -my interpretation of CTA of the chest, no obvious pulmonary embolism. -radiology report, PE previously seen is now resolved. -patient now asymptomatic Differential Diagnosis Differential Diagnoses: The differential diagnosis associated with the presentation includes (Musculoskeletal pain, ACS, PE) Admission/Observation Consideration of admission/observation: Escalation of care including admission/observation considered (Given patient's symptoms and history of PE, admission/observation considered) Lab Data [facility] Lab Attestation statement: I reviewed the patient's lab results. 09/06/23 20:06 09/06/23 20:06 Labs: Lab Results 09/06/23 09/06/23 Range/Units 20:06 20:06 WBC 10.1 (4.8-10.8) X10*3/uL RBC 4.32 (4.20-5.50) X10*6/uL Hgb 11.0 L (12.0-16.0) g/dl Hct 35.3 L (37.0-47.0) % MCV 81.7 (80.0-98.0) fL MCH 25.5 L (27.0-33.0) pg MCHC 31.2 (31.0-35.0) g/dl RDW 15.5 (11.0-16.0) % Plt Count 217 (160-400) X10*3/uL MPV 11.3 (9.4-12.3) fL Immature Gran % (Auto) 0.3 (0.0-0.4) % Neut % (Auto) 59.4 (45-73) % Lymph % (Auto) 26.3 (20-40) % Boyle % (Auto) 8.7 (2-11) % Eos % (Auto) 4.8 H (0-4) % Baso % (Auto) 0.5 (0-2) % Lymph # (Auto) 2.7 (1.2-4.9) X10*3/uL Boyle # (Auto) 0.9 (0.1-1.2) X10*3/uL Eos # (Auto) 0.5 H (0.0-0.4) X10*3/uL Baso # (Auto) 0.1 (0.0-0.2) X10*3/uL Abs Immat Gran (auto) 0.03 (0.00-0.03) X10*3/uL Absolute Neuts (auto) 6.0 (2.0-8.3) x10*3/uL Absolute Nucleated RBC 0.000 (0.0-0.012) X10*3/uL Nucleated RBC % (auto) 0.0 (0.0-0.2) /100WBC PT 10.9 L (11.1-13.3) SEC INR 0.9 (0.9-1.1) D-Dimer High Sensitivty Cancelled 429 Sodium 144 (135-145) mmol/L Potassium 4.3 (3.3-5.1) mmol/L Chloride 107 (96-108) mmol/L Carbon Dioxide 24 (22-29) mmol/L Anion Gap 17 (12-20) BUN 13 (9-16) mg/dL Creatinine 0.75 (0.5-1.4) mg/dL Estim Creat Clear Calc 47.4 Estimated GFR > 60 Random Glucose 160 H (60-115) mg/dL Calcium 9.8 D (8.4-10.2) mg/dL Total Bilirubin 0.3 (0.0-1.0) mg/dL Direct Bilirubin 0.1 (0.0-0.5) mg/dL AST 17 (5-31) U/L ALT 15 (0-31) U/L Alkaline Phosphatase 95 (39-117) U/L Troponin I High Sens 14.4 (<3.5-17.0) ng/L Total Protein 7.5 (6.5-8.0) g/dL Albumin 4.1 (3.5-5.0) g/dL Independent Interpretation I performed an independent interpretation of an: EKG (My interpretation of EKG: Normal sinus rhythm, heart rate 76, no ST segment depression or elevation, no T- wave inversion, QTC 438) and CT Scan Radiology Impression Discussion of test interpretation with radiology: I have reviewed the radiologist's reading. Independent Historian Clinical information obtained from an independent historian. History obtained from or confirmed by: EMS FINDINGS: QUALITY OF STUDY/CONTRAST BOLUS: Satisfactory. PULMONARY ARTERIES: No pulmonary emboli. Previously seen pulmonary embolus in the right lower lobe has resolved. THORACIC AORTA: No aneurysm. Scattered atherosclerotic wall calcifications. LUNG: No focal consolidation, nodules or masses. Calcified granuloma again seen in the right lower lobe. PLEURA: No pleural effusion or pneumothorax. MEDIASTINUM: Normal heart size. No pericardial effusion. No hilar or mediastinal lymphadenopathy. No evidence of septal bowing or right heart strain. Left-sided thyroid goiter again seen. CORONARY ARTERY CALCIFICATION: Present CHEST WALL/AXILLA: No axillary or internal mammary lymphadenopathy. OSSEOUS STRUCTURES: No acute or suspicious osseous abnormality. UPPER ABDOMEN: Unremarkable. No reflux of contrast into the hepatic veins to suggest elevated right heart pressures. CT/CT angio chest PE protocol IMPRESSION: 1. No evidence of pulmonary embolism. Previously seen pulmonary embolus in the right lower lobe has resolved. 2. No acute pulmonary process. VTE: negative. Critical Care Time Critical Care Time Critical Care Time: Yes Total Critical Care Time: 45 Attestation: I have personally provided critical care time. Time includes review of lab data, radiology results, discussion with consultants, and monitoring for potential decompensation. Intervention performed as documented. Discharge Plan Discharge Clinical Impression: Chest pain Patient Disposition: Home, Self-Care Instructions: Chest Pain (ED) Additional Instructions: Please follow-up with your primary care physician tomorrow. If you have any worsening or new symptoms, please return to the emergency room or call 911 Prescriptions: No Action (DME) lancets [FreeStyle Lancets] 28 gauge misc See Rx Instructions topical QID Qty: 400 11RF Rx Instructions: As directed (DME) pen needle, diabetic [BD Meg 2nd Gen Pen Needle] 32 gauge x 5/32 needle See Rx Instructions .MEDSUPPLY Qty: 100 11RF Rx Instructions: 2 times a day rosuvastatin 10 mg tablet 10 mg PO DAILY Qty: 30 6RF cholecalciferol (vitamin D3) 50 mcg (2,000 unit) capsule 50 mcg PO DAILY Qty: 30 6RF Januvia 100 mg tablet 100 mg PO DAILY 30 Days Qty: 30 4RF Xigduo XR 5-1,000 mg tablet, IR - ER, biphasic 24hr 1 tab PO BID Qty: 60 5RF (DME) FreeStyle Patti 2 Terrell Misc See Rx Instructions .ROUTE .MEDSUPPLY Qty: 1 0RF Rx Instructions: As directed (DME) FreeStyle Patti 2 Sensor Kit See Rx Instructions .ROUTE .MEDSUPPLY Qty: 3 11RF Rx Instructions: Once every 14 days FreeStyle Lite Strips Strip 1 strip miscellaneous QID Qty: 400 3RF lorazepam 1 mg tablet 1 tab PO BID PRN (Reason: anxiety) albuterol sulfate [Ventolin HFA] 90 mcg/actuation HFA aerosol inhaler 2 puff inhalation Q4-6H PRN (Reason: Wheezing) naproxen 500 mg tablet 500 mg PO BID PRN (Reason: pain) 10 Days Qty: 20 0RF Eliquis DVT-PE Treat 30D Start 5 mg (74 tabs) tablets,dose pack 5 mg PO BID Qty: 74 0RF Rx Instructions: 10mg daily for the first 7 days was given initial dose in ED (DME) Wrist Brace Misc See Rx Instructions .MEDSUPPLY Qty: 1 0RF Rx Instructions: comfort form wrist/thumb RT S acetaminophen-codeine 300-30 mg tablet 1 tab PO TID PRN (Reason: Pain) lisinopril 40 mg tablet 40 mg PO DAILY albuterol sulfate 2.5 mg /3 mL (0.083 %) solution for nebulization 2.5 mg inhalation DAILY insulin lispro protamin-lispro [Humalog Mix 75-25 KwikPen] 100 unit/mL (75-25) insulin pen See Rx Instructions subcut BID Rx Instructions: 26 units before breakfast and 14 units before dinner subcut 2 times a day; Flovent HFA 110 mcg/actuation HFA aerosol inhaler 1 puff PO BID fluticasone propionate 50 mcg/actuation spray,suspension 50 spray intranasal DAILY esomeprazole magnesium 20 mg capsule,delayed release(DR/EC) 20 mg PO DAILY 90 Days Qty: 90 2RF fluticasone propionate 110 mcg/actuation HFA aerosol inhaler 1 puff inhalation BID Qty: 12 3RF Print Language: Hungarian
[2023-09-06 20:11] LABS: MANUAL DIFF FLAG NO
[2023-09-06 20:19] LABS: Basophils Absolute Auto 0.1 X10*3/uL (0.0-0.2); Basophils Percent Auto 0.5 % (0-2); Eosinophils Absolute Auto 0.5 X10*3/uL (0.0-0.4); Eosinophils Percent Auto 4.8 % (0-4); Hematocrit 35.3 % (37.0-47.0); Imm Gran Abs Auto 0.03 X10*3/uL (0.00-0.03); Imm Gran Pct Auto 0.3 % (0.0-0.4); Lymphocytes Absolute Auto 2.7 X10*3/uL (1.2-4.9); Lymphocytes Percent Auto 26.3 % (20-40); Mean Corpuscular HGB Conc 31.2 g/dl (31.0-35.0); Mean Corpuscular Hemoglobin 25.5 pg (27.0-33.0); Mean Corpuscular Volume 81.7 fL (80.0-98.0); Mean Platelet Volume 11.3 fL (9.4-12.3); Monocytes Absolute Auto 0.9 X10*3/uL (0.1-1.2); Monocytes Percent Auto 8.7 % (2-11); Neutrophils Percent Auto 59.4 % (45-73); Platelet Count 217 X10*3/uL (160-400); Red Blood Count 4.32 X10*6/uL (4.20-5.50); Red Cell Distribution Width 15.5 % (11.0-16.0); White Blood Count 10.1 X10*3/uL (4.8-10.8)
[2023-09-06 20:28] LABS: Alanine Aminotransferase 15 U/L (0-31); Albumin Level 4.1 g/dL (3.5-5.0); Alkaline Phosphatase 95 U/L (39-117); Anion Gap 17 (12-20); Aspartate Amino Transferase 17 U/L (5-31); Bilirubin Direct 0.1 mg/dL (0.0-0.5); Bilirubin Total 0.3 mg/dL (0.0-1.0); Blood Urea Nitrogen 13 mg/dL (9-16); Calcium 9.8 mg/dL (8.4-10.2); Carbon Dioxide 24 mmol/L (22-29); Chloride 107 mmol/L (96-108); Creatinine Clr Calc Pharmacy 47.4; Estimated Glomerular Filt Rate > 60; Glucose Random 160 mg/dL (60-115); Potassium 4.3 mmol/L (3.3-5.1); Sodium 144 mmol/L (135-145); Total Protein 7.5 g/dL (6.5-8.0)
[2023-09-06 20:33] LABS: INTERNATIONAL NORM RATIO 0.9 (0.9-1.1); Prothrombin Time 10.9 SEC (11.1-13.3)
[2023-09-06 20:35] LABS: D Dimer High Sensitivity 429 NG/ML; Troponin-I High Sensitivity 14.4 ng/L (<3.5-17.0)
[2023-09-06] MEDS: iohexoL 350 MG/ML 100 ML INFUS..BTL IV (21:52)
[2023-09-06 22:51] VITALS: BP 168/55; PULSE 80; RESP 18; TEMP 36.3; O2SAT 96
== END 2023-09-06 22:52 | disposition home or self-care (01) ==
PROVIDERS: Emergency Provider Emergency Medicine; PCP General Practice
DX: R07.9 Chest pain, unspecified (principal); I10 Essential (primary) hypertension; E11.9 Type 2 diabetes mellitus without complications; Z86.711 Personal history of pulmonary embolism; Z79.01 Long term (current) use of anticoagulants; Z79.4 Long term (current) use of insulin
CPT/HCPCS: 36415; 71275; 80048; 80076; 84484; 85025; 85379; 85610; 93005; 99284; 99285; Q9967

== ENCOUNTER → 2023-09-06 18:51 | Outpatient (BNV) | payer OTHER, SELFPAY | PROVIDERS: Emergency Provider Emergency Medicine; PCP General Practice; Visit Provider Internal Medicine Cardiovascular Disease | DX: R07.9 Chest pain, unspecified (principal) | CPT/HCPCS: 93010 ==

== ENCOUNTER 2023-09-12 08:27 | Outpatient (REF) | payer OTHER, SELFPAY ==
--- NOTE | ~2023-09-12 | CT_ITS ---
EXAMINATION: CT ABDOMEN AND PELVIS WITHOUT CONTRAST CLINICAL INFORMATION: Renal cell carcinoma COMPARISON: MR abdomen 12/21/2022. CT abdomen and pelvis 12/01/2021. TECHNIQUE: Multidetector volumetric imaging was performed from the superior aspect of the liver through the pubic symphysis. Sagittal and coronal reformatted images were obtained on the technologist's workstation. This CT examination was performed using dose optimization techniques as appropriate, variously including the following: *Automated exposure control *Adjustment of mA and/or kV according to patient size (this includes techniques or standardized protocols for targeted exams where dose is matched to indication/reason for exam; i.e. extremities or head) *Use of iterative reconstruction technique DLP: 575 mGy-cm FINDINGS: LUNG BASES: No evidence of metastatic disease. Coronary calcium. Small hiatal hernia. LIVER, GALLBLADDER, AND BILIARY TREE: No visible metastatic disease. Calcified granuloma posterior right hepatic lobe. No biliary ductal dilatation. Cholecystectomy. PANCREAS: No discrete pancreatic mass or pancreatic ductal dilatation. SPLEEN: Calcified granulomas. ADRENAL GLANDS: No adrenal mass. KIDNEYS AND URETERS: Cryoablated lesion lower pole right kidney is decreased in size measuring 5 mm. Evaluation limited without intravenous contrast. No nephrolithiasis or hydronephrosis. Simple cysts in the kidneys. No follow-up imaging recommended. BLADDER: Unremarkable. GASTROINTESTINAL TRACT: Small hiatal hernia. The small and large bowel are normal in caliber. The appendix appears normal. ABDOMINAL WALL: Surgical changes midline abdomen. LYMPH NODES: No lymphadenopathy. VASCULAR: No aortic aneurysm. PELVIC VISCERA: Hysterectomy. OSSEOUS STRUCTURES: Degenerative changes in the spine. CT/CT abdomen pelvis wo IV con IMPRESSION: Decreased size of cryoablated lesion posterior right lower kidney. Evaluation for viable disease is limited without contrast. Continued surveillance recommended.
[2023-09-12] MEDS: Barium Sulfate Oral (Vanilla) 450 ML ORAL.SUSP 900 ML PO (10:40)
== END 2023-09-12 08:28 | disposition home or self-care (01) ==
LOC: HO.CT 08:27
PROVIDERS: PCP General Practice; Visit Provider Internal Medicine Medical Oncology
DX: C64.9 Malignant neoplasm of unspecified kidney, except renal pelvis (principal)
CPT/HCPCS: 74176

== ENCOUNTER 2023-09-14 09:30 | Outpatient (AMB) | payer OTHER, SELFPAY ==
--- NOTE | 2023-09-14 09:31 | A.OFFVIS_ITS ---
Vital Signs 09/14/23 09:32 Height 5 ft 1 in Weight 186 lb 1.122 oz BMI 35.2 BP 148/58 H Blood Pressure Location Lt brachial Position Sitting Pulse 89 Pulse Source Pulse Oximeter Intake Visit Reasons: F/U ultrasound Intake Note: Patient present today for Ultrasound results. Newspaper Publisher Required: Yes Newspaper Publisher Language: Gm Mobile Name: Jameel Information Interpreted: non-clinical & clinical Accompanied by: Self / Same As Patient Allergies leal [LEAL] Allergy (Severe, Verified 09/14/23 09:37) ANAPHYLAXIS cucumber Allergy (Severe, Verified 09/14/23 09:37) Shortness of Breath metoclopramide [From Reglan] Allergy (Severe, Verified 09/14/23 09:37) SEIZURE-LIKE ACTIVITIES Penicillins Allergy (Severe, Verified 09/14/23 09:37) Anaphylaxis oxycodone [From PERCOCET] Allergy (Mild, Verified 09/14/23 09:37) ITCHING HPI Comments Details: 63 YO F with PMHx T2DM, NTMNG and Hypothyroidism who is seen in F/U for a NTMNG. The patient last saw Dr. Martin 09/15/2022 She has refused F/U for her T2DM with us. NTMNG: She was previously diagnosed with a NTMNG.? She underwent FNA biopsy by Dr. Bobo 06/12/2020 of her LUP 1.9 cm and LLP 1.7 cm thyroid nodules, both with benign (bethesda category II) cytology.? She then had a repeat thyroid US 07/02/2021 which revealed significant growth of her LMP nodule to 2.6 cm, and significant growth of another LMP nodule to 2.1 cm.? She was scheduled for an FNA biopsy with me but was unable to tolerate this and requested this be completed under conscious sedation. She then underwent an IR guided FNA biopsy 06/28/2022 of her Right upper pole 1.1 cm, left mid pole 2.6 cm and left mid pole 2.2 cm nodules (3 in total) all with benign cytology. She presents today to review these results. 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 Thyroid US: 07/02/2021 FINDINGS: ? SIZE: Measurements of the thyroid lobes and nodules are given in sagittal, anteroposterior and transverse dimensions respectively. Right Thyroid Lobe: 5.7 x 2.6 x 1.9 cm, volume 14.7 mL. Previously 5.2 x 2.1 x 2.1 cm, volume 12.0 mL. Parenchyma: The gland echotexture is heterogeneous. Thyroid vascularity is increased. Left Thyroid Lobe: 4.9 x 3.1 x 3.0 cm, volume 23.8 mL. Previously 4.2 x 2.7 x 2.4 cm, volume 14.2 mL. Parenchyma: The gland echotexture is heterogeneous. Thyroid vascularity is increased. Isthmus: 0.9 cm in maximum AP dimension. Previously 0.7 cm. Estimated total number of nodules greater than or equal to 1 cm: 4. 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 Location: Left mid. ?? ? Size: 2.6 x 1.6 x 1.7 cm, volume 3.7 mL. ?? ? Previously: 1.6 x 1.2 x 1.5 cm, volume 1.5 mL. ?? ? Nodule characteristics: ?? ? Composition: Solid/almost completely solid (2). ?? ? Echogenicity: Hypoechoic (2). ?? ? Shape: Not taller than wide (0). ?? ? Margins: Smooth (0). ?? ? Echogenic Foci: None (0). ? ACR TI-RADS total points: 4 ?? ? ACR TI-RADS category: 4 ? Significant change in size (>/= 20% in 2 dimensions and minimal increase of 2 mm or 50% or greater increase in volume): Yes ?? ? Change in features: No ?? ? Change in ACR TI-RADS risk category: No 2.? Location: Left mid. ?? ? Size: 2.1 x 1.2 x 2.2 cm, volume 3.0 mL. ?? ? Previously: 1.4 x 1.0 x 1.2 cm, volume 0.9 mL. ?? ? Nodule characteristics: ?? ? Composition: Solid/almost completely solid (2). ?? ? Echogenicity: Hypoechoic (2). ?? ? Shape: Not taller than wide (0). ?? ? Margins: Smooth (0). ?? ? Echogenic Foci: None (0).? ACR TI-RADS total points: 4 ?? ? ACR TI-RADS category: 4 ? Significant change in size (>/= 20% in 2 dimensions and minimal increase of 2 mm or 50% or greater increase in volume): Yes ?? ? Change in features: No ?? ? Change in ACR TI-RADS risk category: No 3.? Location: Left lower. ?? ? Size: 1.5 x 1.9 x 1.6 cm, volume 2.2 mL. ?? ? Previously: 1.3 x 1.7 x 1.5 cm, volume 1.7 mL. ?? ? Nodule characteristics: ?? ? Composition: Solid (2). ?? ? Echogenicity: Hypoechoic (2). ?? ? Shape: Taller than wide (3). ?? ? Margins: Smooth (0). ?? ? Echogenic Foci: None (0). ? ACR TI-RADS total points: 7 ?? ? ACR TI-RADS category: 5 ? Significant change in size (>/= 20% in 2 dimensions and minimal increase of 2 mm or 50% or greater increase in volume): ?? ? Change in features: ?? ? Change in ACR TI-RADS risk category: 4.? Location: Right upper. ?? ? Size: 1.1 x 1.1 x 0.8 cm, volume 0.5 mL. ?? ? Previously: 1.1 x 1.1 x 0.8 cm, volume 0.5 mL. ?? ? Nodule characteristics: ?? ? Composition: Solid/almost completely solid (2). ?? ? Echogenicity: Hypoechoic (2). ?? ? Shape: Taller than wide (3). ?? ? Margins: Smooth (0). ?? ? Echogenic Foci: None (0). ? ACR TI-RADS total points: 7 ?? ? ACR TI-RADS category: 5 ? Significant change in size (>/= 20% in 2 dimensions and minimal increase of 2 mm or 50% or greater increase in volume): ?? ? Change in features: ?? ? Change in ACR TI-RADS risk category: 5.? Location: Right lower. ?? ? Size: 0.8 x 0.4 x 0.8 cm, volume 0.1 mL. ?? ? Previously: 0.9 x 0.8 x 0.9 cm, volume 0.3 mL. ?? ? Nodule characteristics: ?? ? Composition: Solid/almost completely solid (2). ?? ? Echogenicity: Hyperechoic (1). ?? ? Shape: Not taller than wide (0). ?? ? Margins: Ill-defined (0). ?? ? Echogenic Foci: Macrocalcifications (1).? ACR TI-RADS total points: 4 ?? ? ACR TI-RADS category: 4 ? Significant change in size (>/= 20% in 2 dimensions and minimal increase of 2 mm or 50% or greater increase in volume): ?? ? Change in features: ?? ? Change in ACR TI-RADS risk category: NODES: No lymphadenopathy is seen in the tissue surrounding the thyroid gland.?? Labs: Laboratory Tests 05/25/21 10/20/21 10/20/21 12:35 10:39 10:39 Creatinine Estimated GFR LDL Cholesterol Direct TSH 2.52 Free T4 1.09 Microalb/Creat Ratio 14.5 10/20/21 03/01/22 10:39 10:51 Creatinine 0.71 Estimated GFR > 60 LDL Cholesterol Direct 167 H TSH Free T4 Microalb/Creat Ratio PFSH Medical History Current non-adherence to medical treatment Emanuel's disease Non-toxic multinodular goiter Diabetic nephropathy associated with type 2 diabetes mellitus 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 Hypertension detention (current) use of insulin Cataract Colon cancer (~2010) Diabetes type 2, uncontrolled Vitamin D deficiency Surgical History History of esophagogastroduodenoscopy (EGD) History of kidney surgery H/O colonoscopy Hx of breast reduction, elective H/O total hysterectomy Hx of tonsillectomy Family History Maternal Aunt Esophageal cancer Breast cancer Brother Colon cancer Diabetes Brother Colon cancer Father Diabetes Sister Diabetes Sister Diabetes Social History Household Members: None Housing: Apartment Alcohol intake: never Patient Tobacco Use Status: Never used Tobacco Second Hand Smoke Exposure: No Current occupational status: disabled 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 Recent thyroid ultrasound showed? New left superior nodule but other nodules were stable in size. Appears clinically biochemically euthyroid Plan is discuss options with the patient including aspiration of the new left superior nodule versus left lobectomy considering the multitude of nodules in the left lobe. After long discussion with the patient it was decided to proceed with left lobectomy. Patient referred to Dr. Patel Orders: Referrals General Surgery Referral E04.2 - Nontoxic multinodular goiter Coding Level of Care Code Est Pt Level 3 (39468) Diagnoses Non-toxic multinodular goiter E04.2
[2023-09-14 09:32] VITALS: BP 148/58; PULSE 89; BMI 35.2
== END 2023-09-14 10:15 | disposition home or self-care (01) ==
PROVIDERS: PCP General Practice; Visit Provider Internal Medicine Endocrinology, Diabetes & Metabolism
DX: E04.2 Nontoxic multinodular goiter (principal)
CPT/HCPCS: 99213

== ENCOUNTER → 2023-09-14 09:30 | Outpatient (BNVA) | payer OTHER, SELFPAY | PROVIDERS: PCP General Practice; Visit Provider Internal Medicine Endocrinology, Diabetes & Metabolism | DX: E04.2 Nontoxic multinodular goiter (principal) | CPT/HCPCS: 99212 ==

== ENCOUNTER 2023-09-22 14:35 | Outpatient (REF) | payer OTHER, SELFPAY ==
--- NOTE | ~2023-09-22 | XR_ITS ---
EXAMINATION: XR FOOT, LEFT CLINICAL INFORMATION: Pain COMPARISON: None available. TECHNIQUE: 3 views of the left foot. FINDINGS: There is a small 1 to 2 mm density within the fat posterior to the calcaneus. This could be a foreign body. There is moderate spurring at the insertion of the plantar aponeuroses and Achilles on the calcaneus. There is ill-definition of the posterior calcaneal bone. Underlying infection cannot be excluded. Correlation needs to be made clinically. Degenerative changes in the remainder of the foot are noted. XR/XR foot LT min 3V IMPRESSION: Small density within the fat posterior to the posterior calcaneus could represent small foreign body. In addition ill-definition of the posterior calcaneus. Cannot rule out osteomyelitis in this area and correlation would need to be made. Moderate spurring at the insertion of the plantar aponeuroses and the Achilles tendon. Otherwise degenerative changes are noted.
== END 2023-09-22 14:36 | disposition home or self-care (01) ==
LOC: HO.HHCX 14:35
PROVIDERS: Visit Provider Student in an Organized Health Care Education/Training Program
DX: M79.672 Pain in left foot (principal)
CPT/HCPCS: 73630

== ENCOUNTER → 2023-10-03 11:39 | Outpatient (BNVA) | payer OTHER, SELFPAY | PROVIDERS: PCP General Practice; Visit Provider Internal Medicine Gastroenterology | DX: J45.909 Unspecified asthma, uncomplicated (principal); I26.99 Other pulmonary embolism without acute cor pulmonale; R91.1 Solitary pulmonary nodule; C64.9 Malignant neoplasm of unspecified kidney, except renal pelvis; Z79.01 Long term (current) use of anticoagulants | CPT/HCPCS: 99212 ==

== ENCOUNTER 2023-10-03 13:18 | Outpatient (AMB) | payer OTHER, SELFPAY ==
--- NOTE | 2023-10-03 13:18 | MHC.OFFVIS ---
Vital Signs 10/03/23 13:20 Height 5 ft 1 in Weight 181 lb 14.102 oz BMI 34.4 BP 130/58 L Blood Pressure Location Rt brachial Position Sitting Pulse 82 Pulse Source Pulse Oximeter Pulse Oximetry (%) 97 Oxygen Delivery Method Room Air Intake Visit Reasons: Asthma Allergies leal [LEAL] Allergy (Severe, Verified 10/03/23 13:25) ANAPHYLAXIS cucumber Allergy (Severe, Verified 10/03/23 13:25) Shortness of Breath metoclopramide [From Reglan] Allergy (Severe, Verified 10/03/23 13:25) SEIZURE-LIKE ACTIVITIES Penicillins Allergy (Severe, Verified 10/03/23 13:25) Anaphylaxis oxycodone [From PERCOCET] Allergy (Mild, Verified 10/03/23 13:25) ITCHING HPI HPI Asthma: Details: Claudia is a pleasant 63 year old female, never smoker, with underlying asthma, renal carcinoma s/p cryotherapy 2021 under the care of Dr. Chavez, GERD, HTN, DM, and h/o colon cancer in 2010, annual monitoring by Dr. Chacko. She was evaluated by [facility] [place] for cough, fatigue, and chest pain. Troponins negative, EKG nonischemic, ddimer elevated and sent for CTA. Imaging revealed possible subsegmental pulmonary embolism of posterior RLL and started on eliquis 5 mg BID. Patient had another evaluation in the ED in August for chest pain and repeat CTA revealed resolution of prior PE and negative for development of further clots. At the last visit, reported dry cough with intermittent chest tightness which she attributes to weather changes but had discontinued her Flovent. She restarted her Flovent and reports good control of symptoms. She denies any chest tightness, cough, dyspnea or chest tightness. Of note, she is under evaluation for hypercoaguable conditions, she has an upcoming appointment with Dr. Chacko. [facility] Medical History Current non-adherence to medical treatment Emanuel's disease Non-toxic multinodular goiter Diabetic nephropathy associated with type 2 diabetes mellitus 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 Hypertension prison (current) use of insulin Cataract Colon cancer (~2010) Diabetes type 2, uncontrolled Vitamin D deficiency Surgical History History of esophagogastroduodenoscopy (EGD) History of kidney surgery H/O colonoscopy Hx of breast reduction, elective H/O total hysterectomy Hx of tonsillectomy Family History Maternal Aunt Esophageal cancer Breast cancer Brother Colon cancer Diabetes Brother Colon cancer Father Diabetes Sister Diabetes Sister Diabetes Social History Household Members: None Housing: Apartment Alcohol intake: never Patient Tobacco Use Status: Never used Tobacco Second Hand Smoke Exposure: No Current occupational status: disabled 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 Review of Systems Const Denies chills, Denies excessive sweating, Denies fever(s), Denies headache(s) and Denies night sweats Eyes Denies dry eyes, Denies irritation and Denies itchy eyes ENT Reports Normal hearing present, Denies headache(s), Denies nasal congestion, Denies nasal discharge, Denies post nasal drip and Denies sore throat Card Denies chest pain, Denies chest pain at rest, Denies chest pain with activity, Denies claudication, Denies leg edema, Denies dyspnea, Denies dyspnea on exertion, Denies orthopnea and Denies paroxysmal nocturnal dyspnea Resp Denies chest congestion, Denies cough, Denies excessive phlegm production, Denies pain on inspiration, Denies pain with cough, Denies dyspnea, Denies dyspnea on exertion, Denies stridor and Denies wheezing Musc Denies myalgias Neuro Reports Normal hearing present and Denies headache(s) Endo Denies excessive sweating Hair/Lymph Denies lymphadenopathy Aller/Immun Denies itchy eyes, Denies seasonal rhinorrhea and Denies wheezing Physical Exam Vital Signs: Last Vital Signs Pulse 82 10/03/23 13:20 BP 130/58 L 10/03/23 13:20 Pulse Ox 97 10/03/23 13:20 Oxygen Delivery Method Room Air 10/03/23 13:20 BMI result Body Mass Index 34.4 Const General: cooperative, healthy appearing, comfortable, no acute distress, well developed and alert Nutritional Appearance: obese Orientation/consciousness: patient oriented x3 Limitations: no limitations HEENT Head: Yes normal to inspection, Yes normocephalic and Yes atraumatic Ears: hearing grossly normal bilaterally and external ears normal Eyes General: appearance normal, both eyes and all related structures Eyelids: Yes eyelids normal Sclerae: sclerae normal EOM: EOMs intact bilaterally Neck Neck: Yes normal visual inspection and Yes no lymphadenopathy Lymphatic: no lymphadenopathy noted Chest Chest palpation & inspection: normal inspection of the chest Resp Effort & Inspection: normal respiratory effort, able to speak in complete sentences, no audible wheezes, no cough, no stridor, not tachypneic, no tripod positioning and no use of accessory muscles Auscultation: clear to auscultation bilaterally Cardio Jugular venous distension: no JVD Rate: regular rate Rhythm: regular rhythm Skin Other: warm, dry General skin exam: no rashes or lesions noted Neuro General: patient oriented x3 Cranial nerves: Yes Normal hearing present Cognition (Neuro): normal cognition Gait exam (Neuro): Normal gait present Extrem General: Yes normal to inspection, Yes capillary refill normal, Yes no clubbing, cyanosis or edema and Yes no pedal edema Psych Appearance: grossly normal and well kempt Speech and movement: Normal speech and movement present and Clear speech present Affect: normal affect Attitude: cooperative Thought process: Normal thought process present Thought content: Normal thought content present Insight: Good insight present (Psych) Judgement: Good judgement present (Psych) Results Reviewed Results Reviewed: [place] [address] CT Scan Report Signed Patient: Claudia Haynes MR#: [id number] : 1960 Acct:[id number] Age/Sex: 63 / F ADM Date: 09/06/23 Loc: .ED Attending Dr: Ordering Physician: Bee Bales MD Date of Service: 09/06/23 Procedure(s): CT angio chest PE protocol Accession Number(s): [id number] cc: Roseanna Bernal; Bee Bales MD~ EXAMINATION: CT ANGIOGRAM OF THE CHEST WITH AND WITHOUT CONTRAST (CT PULMONARY ANGIOGRAM FOR PE) CLINICAL INFORMATION: Left-sided chest pain, hx PEs on eliquis COMPARISON: CTA from 05/26/2023 TECHNIQUE: Prior to contrast administration, noncontrast localization images were obtained. Subsequently, multidetector volumetric imaging was performed from the thoracic inlet to below the diaphragms following the administration of 72 mL Omnipaque 350 intravenous contrast. No contrast reaction reported Sagittal, coronal, and MIP oblique sagittal reformatted images were obtained on the CT workstation, uploaded to PACS, and reviewed. This CT examination was performed using dose optimization techniques as appropriate, variously including the following: *Automated exposure control *Adjustment of mA and/or kV according to patient size (this includes techniques or standardized protocols for targeted exams where dose is matched to indication/reason for exam; i.e. extremities or head) *Use of iterative reconstruction technique Total exam dose-length product 375 mGy-cm FINDINGS: QUALITY OF STUDY/CONTRAST BOLUS: Satisfactory. PULMONARY ARTERIES: No pulmonary emboli. Previously seen pulmonary embolus in the right lower lobe has resolved. THORACIC AORTA: No aneurysm. Scattered atherosclerotic wall calcifications. LUNG: No focal consolidation, nodules or masses. Calcified granuloma again seen in the right lower lobe. PLEURA: No pleural effusion or pneumothorax. MEDIASTINUM: Normal heart size. No pericardial effusion. No hilar or mediastinal lymphadenopathy. No evidence of septal bowing or right heart strain. Left-sided thyroid goiter again seen. CORONARY ARTERY CALCIFICATION: Present CHEST WALL/AXILLA: No axillary or internal mammary lymphadenopathy. OSSEOUS STRUCTURES: No acute or suspicious osseous abnormality. UPPER ABDOMEN: Unremarkable. No reflux of contrast into the hepatic veins to suggest elevated right heart pressures. CT/CT angio chest PE protocol IMPRESSION: 1. No evidence of pulmonary embolism. Previously seen pulmonary embolus in the right lower lobe has resolved. 2. No acute pulmonary process. VTE: negative. Dictated By: Ashutosh Gomez MD Signed By: <Electronically signed by Ashutosh Gomez MD in OV> 09/06/232224 DD/ 50 TD/TT: [place]: Assessment & Plan Assessment & Plan (1) Pulmonary emboli: Code(s): I26.99 - Other pulmonary embolism without acute cor pulmonale Category: Medical (2) Pulmonary nodule: Comment: stable since 2018 Code(s): R91.1 - Solitary pulmonary nodule Category: Medical (3) Renal cancer: Comment: 08/21 cryotherapy right lower pole Code(s): C64.9 - Malignant neoplasm of unspecified kidney, except renal pelvis Category: Medical (4) Asthma: Code(s): J45.909 - Unspecified asthma, uncomplicated Category: Medical Plan Advised to continue current regimen. If respiratory symptoms worsen she is aware to contact the office. Given that her recent PE was likely unprovoked, anticoagulation may be indefinite. Hypercoaguable workup pending. She is prescribed eliquis by PCP and advised to continue regimen until she discusses with PCP. All questions were answered and patient is in agreement of plan. Will follow up in 3-6 months or sooner if needed. Coding Level of Care Code Est Pt Level 4 (14411) Diagnoses Pulmonary emboli I26.99 Pulmonary nodule R91.1 Renal cancer C64.9 Asthma J45.909
[2023-10-03 13:20] VITALS: BP 130/58; PULSE 82; O2SAT 97; BMI 34.4
== END 2023-10-03 13:44 | disposition home or self-care (01) ==
PROVIDERS: PCP Family Medicine; Visit Provider Nurse Practitioner Family
DX: I26.99 Other pulmonary embolism without acute cor pulmonale (principal); R91.1 Solitary pulmonary nodule; C64.9 Malignant neoplasm of unspecified kidney, except renal pelvis; J45.909 Unspecified asthma, uncomplicated
CPT/HCPCS: 99214

== ENCOUNTER 2023-10-05 12:46 | Outpatient (AMB) | payer OTHER, SELFPAY ==
--- NOTE | 2023-10-05 13:00 | A.OFFVIS_ITS ---
Vital Signs 10/05/23 13:01 Height 5 ft 1 in Weight 182 lb 8.684 oz BMI 34.5 BP 134/58 L Blood Pressure Location Lt brachial Position Sitting Pulse 100 Pulse Source Pulse Oximeter Intake Visit Reasons: Type 2 DM-confirmed Intake Note: Patient presents today to follow up on D2MT. Last Diabetic Eye exam: 08/2023 Last Podiatry Visit: Doens't have one. Random Glucose: 206 mg/dl HgA1c: 8.3% Concaving Machine Operator Required: Yes Concaving Machine Operator Language: Nut Former Name: Natividad Information Interpreted: non-clinical & clinical Accompanied by: Self / Same As Patient Allergies leal [LEAL] Allergy (Severe, Verified 10/05/23 13:03) ANAPHYLAXIS cucumber Allergy (Severe, Verified 10/05/23 13:03) Shortness of Breath metoclopramide [From Reglan] Allergy (Severe, Verified 10/05/23 13:03) SEIZURE-LIKE ACTIVITIES Penicillins Allergy (Severe, Verified 10/05/23 13:03) Anaphylaxis oxycodone [From PERCOCET] Allergy (Mild, Verified 10/05/23 13:03) ITCHING Medication List - Last Reconciled 10/05/23 by Ziggy Camejo MD acetaminophen-codeine 300-30 mg 1 tab PO TID PRN albuterol sulfate 90 mcg/actuation (Ventolin HFA) 2 puffs inhalation Q4-6H PRN albuterol sulfate 2.5 mg inhalation DAILY apixaban (Eliquis DVT-PE Treat 30D Start) 5 mg PO BID arm brace (Wrist Brace) comfort form wrist/thumb RT S blood sugar diagnostic (FreeStyle Lite Strips) 1 strip miscellaneous QID cholecalciferol (vitamin D3) 50 mcg PO DAILY dapaglifloz propaned-metformin 5-1,000 mg ER (Xigduo XR) 1 tab PO BID dapagliflozin propanediol (Farxiga) 10 mg PO DAILY esomeprazole magnesium 20 mg PO DAILY 90 days flash glucose scanning reader (FreeStyle Patti 2 [place]) As directed flash glucose sensor (FreeStyle Patti 2 Sensor kit) Once every 14 days fluticasone propionate 110 mcg/actuation (Flovent HFA) 1 puff PO BID fluticasone propionate 50 mcg/actuation 50 sprays intranasal DAILY fluticasone propionate 110 mcg/actuation 1 puff inhalation BID insulin lispro protamin-lispro 100 unit/mL (75-25) (Humalog Mix 75-25 KwikPen) 26 units before breakfast and 14 units before dinner subcut 2 times a day; lancets (FreeStyle Lancets) As directed lisinopril 40 mg PO DAILY lorazepam 1 tab PO BID PRN naproxen 500 mg PO BID PRN 10 days pen needle, diabetic (BD Meg 2nd Gen Pen Needle) 2 times a day rosuvastatin 10 mg PO DAILY sitagliptin phosphate (Januvia) 100 mg PO DAILY 30 days HPI Comments Details: Patient 63-year-old female with DM type 2 diagnosed 1995 who presents for management of diabetes. The patient last saw Olga Kinsey NP on 05/05/21 Reports uses rosuvastatin twice a week due to myalgia. Past medical history: Diabetes type 2, dyslipidemia, hypertension, Emanuel's disease, nontoxic multinodular goiter, vitamin-D deficiency, colon cancer Micro and macrovascular complications: retinopathy, nephropathy, neuropathy, CVA, CAD, PVD Diabetes medications: Humalog mix 75/25 28 units before breakfast and 14 units before dinner . Farxiga 10 mg QD Januvia 100 mg daily. Lyumjev causes swelling and pain at injection site. Symptoms reported: denies numbness, tingling, cramping in lower extremities Hypoglycemia:Hyperglycemia: + urinary frequency, occasional nocturia, some days polydypsia Blood glucose monitoring: Unfortunately, patient did not bring log book or sensor or glucometer to follow- up visit Rare hypoglycemia Diet: Breakfast: oatmeal, Lunch: mostly skips. Dinner: soup. Snack: occasional crakers at 3 pm. . Exercise: walk occasionally when shopping Nutrition - DSME: in past Podiatry: no Dental Exam: long time ago Eye Exam: 3 wks a go laser surgery Laboratory Tests 02/02/21 03/02/21 03/02/21 14:31 13:08 14:10 Creatinine 1.04 Estimated GFR 54 Hgb A1c (Clinic) 10.2 H Microalb/Creat Ratio 11.5 06/30/20 10/30/20 10/30/20 13:19 10:02 10:02 Creatinine Estimated GFR Hgb A1c (Clinic) 9.1 H Triglycerides 158 Cholesterol 168 D LDL Cholesterol Direct 108 H LDL Cholesterol, Calc 101 HDL Cholesterol 36 11/08/20 20:16 Creatinine 0.79 Estimated GFR > 60 Hgb A1c (Clinic) Triglycerides Cholesterol LDL Cholesterol Direct LDL Cholesterol, Calc HDL Cholesterol [facility] Medical History Current non-adherence to medical treatment Emanuel's disease Non-toxic multinodular goiter Diabetic nephropathy associated with type 2 diabetes mellitus 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 Cataract Colon cancer (~2010) Diabetes type 2, uncontrolled Vitamin D deficiency Surgical History History of esophagogastroduodenoscopy (EGD) History of kidney surgery H/O colonoscopy Hx of breast reduction, elective H/O total hysterectomy Hx of tonsillectomy Family History Maternal Aunt Esophageal cancer Breast cancer Brother Colon cancer Diabetes Brother Colon cancer Father Diabetes Sister Diabetes Sister Diabetes Social History Household Members: None Housing: Apartment Alcohol intake: never Patient Tobacco Use Status: Never used Tobacco Second Hand Smoke Exposure: No Current occupational status: disabled 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 Absence of acromegalic features. Neck exam reveals nl size thyroid about 15 gms. No thyroid nodules palpable. No carotid bruits present. Lungs CTA. Heart S1 S2, Reg R/R. No M/R/ G. Skin exam reveals absence of vitiligo or acanthosis nigricans. Abdominal exam reveals Soft NT/ND with NA BS. No organomegaly present. Neck Other: . Extrem Other: Visual exam of foot performed. No ulcerations or open lesions. No onchomycosis, no callouses.Pulses 2 + distally Sensation intact to monofilament exam. Vibratory sensation sensed is intact with 128 Hz tuning fork Results AMB Hemoglobin A1c AMB Hemoglobin A1c 8.3 % Last Edit by ROMI Wiley on 10/05/23 13:21 Assessment & Plan Assessment & Plan (1) Diabetes type 2, uncontrolled: Code(s): E11.65 - Type 2 diabetes mellitus with hyperglycemia Category: Medical Qualifiers: Glycemic state: with hyperglycemia Qualified Code(s): E11.65 - Type 2 diabetes mellitus with hyperglycemia Plan: This is a 63-year-old female with a history of type 2 diabetes being treated with metformin, Farxiga, Januvia and premixed insulin with glycemic control and known microvascular and macrovascular complication namely retinopathy, nephropathy, neuropathy, CVA, CAD, PVD. The plan is to have the patient check her point cares pre and post meals. Will talk to the patient about potentially reinitiate the sensor and bring the sensor with her to follow-up appointments. Once the sensor is in place, could substitute a G LP 1 like Mounjaro or Ozempic in lieu of Januvia which would provide cardiovascular protection. Will schedule appointment with early childhood educator aide . Could also consider switching this 75-25 insulin to basal insulin in conjunction with the G LP 1 and SGLT2 Orders: Orders AMB Hemoglobin A1c Today E11.65 - Type 2 diabetes mellitus with hyperglycemia, Z13.9 - Encounter for screening, unspecified Lipid Panel Today E11.65 - Type 2 diabetes mellitus with hyperglycemia Microalbumin, Random (w Creat) Today E11.65 - Type 2 diabetes mellitus with hyperglycemia Referrals Diabetes Education Referral E11.65 - Type 2 diabetes mellitus with hyperglycemia Coding Level of Care Code Est Pt Level 4 (08105) Diagnoses Uncontrolled type 2 diabetes mellitus with hyperglycemia E11.65 Glycemic state: with hyperglycemia
[2023-10-05 13:01] VITALS: BP 134/58; PULSE 100; BMI 34.5
[2023-10-05 13:13] LABS: Glucose, Whole Blood 206 mg/dL (60-115)
== END 2023-10-05 13:50 | disposition home or self-care (01) ==
PROVIDERS: PCP General Practice; Visit Provider Internal Medicine Endocrinology, Diabetes & Metabolism
DX: Z13.9 Encounter for screening, unspecified (principal); E11.65 Type 2 diabetes mellitus with hyperglycemia
CPT/HCPCS: 99214

== ENCOUNTER → 2023-10-05 12:46 | Outpatient (BNVA) | payer OTHER, SELFPAY | PROVIDERS: PCP General Practice; Visit Provider Internal Medicine Endocrinology, Diabetes & Metabolism | DX: E11.65 Type 2 diabetes mellitus with hyperglycemia (principal); Z79.4 Long term (current) use of insulin | CPT/HCPCS: 82947; 83036; 99212 ==

== ENCOUNTER 2023-10-26 13:46 | Outpatient (AMB) | payer OTHER, SELFPAY ==
--- NOTE | 2023-10-26 13:47 | A.OFFVIS_ITS ---
Vital Signs 10/26/23 13:48 Height 5 ft 1 in Weight 178 lb 9.191 oz BMI 33.7 BP 128/60 Blood Pressure Location Rt brachial Position Sitting Pulse 84 Pulse Source Pulse Oximeter Intake Visit Reasons: [id number] Intake Note: Patient present today to follow up on Type Diabetes Mellitus. Last seen by Dr. Camejo on 10/05/2023. Last Diabetic Eye exam: August 2023 Last Podiatry Visit: Does not see a Threading Machine Tender Random Glucose: 193 mg/dl HgA1C: 8.3% 10/05/2023. Freight Service Inspector Required: No Accompanied by: Self / Same As Patient Allergies leal [LEAL] Allergy (Severe, Verified 10/05/23 13:03) ANAPHYLAXIS cucumber Allergy (Severe, Verified 10/05/23 13:03) Shortness of Breath metoclopramide [From Reglan] Allergy (Severe, Verified 10/05/23 13:03) SEIZURE-LIKE ACTIVITIES Penicillins Allergy (Severe, Verified 10/05/23 13:03) Anaphylaxis oxycodone [From PERCOCET] Allergy (Mild, Verified 10/05/23 13:03) ITCHING HPI Comments Details: Patient 63-year-old female with DM type 2 diagnosed 1995 who presents for management of diabetes and multinodular goiter. 1. Diabetes Last seen 10/05/23 A1C 8.3% Reports uses rosuvastatin twice a week due to myalgia. Past medical history: Diabetes type 2, dyslipidemia, hypertension, Emanuel's disease, nontoxic multinodular goiter, vitamin-D deficiency, colon cancer Micro and macrovascular complications: retinopathy, nephropathy, neuropathy, CVA, CAD, PVD Diabetes medications: Humalog mix 75/25 28 units before breakfast and 14 units before dinner.Farxiga 10 mg QD Januvia 100 mg daily. Lyumjev causes swelling and pain at injection site. Has [employer] 2 would not work for download today. Just restarted using due to need for sensors. BG 125-280, 125-230 fasting Symptoms reported: denies numbness, tingling, cramping in lower extremities Hypoglycemia:Hyperglycemia: + urinary frequency, occasional nocturia, some days polydypsia no hypoglycemia Diet: Breakfast: oatmeal, Lunch: mostly skips. Dinner: soup. Snack: occasional crackers at 3 pm. . Exercise: walks at the mall Nutrition - DSME: in past Podiatry: yes (ortho/foot) Dental Exam: long time ago Eye Exam: 6 wks a go laser surgery 2. Thyroid u/s ordered by Dr Chacko . Referred to Dr Patel. Scheduled in Dec but is planning to move to [place] beginning of december. 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 Cataract Colon cancer (~2010) Diabetes type 2, uncontrolled Vitamin D deficiency Surgical History History of esophagogastroduodenoscopy (EGD) History of kidney surgery H/O colonoscopy Hx of breast reduction, elective H/O total hysterectomy Hx of tonsillectomy Family History Maternal Aunt Esophageal cancer Breast cancer Brother Colon cancer Diabetes Brother Colon cancer Father Diabetes Sister Diabetes Sister Diabetes Social History Household Members: None Housing: Apartment Alcohol intake: never Patient Tobacco Use Status: Never used Tobacco Second Hand Smoke Exposure: No Current occupational status: disabled 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 Review of Systems Const Denies chills, Denies excessive sweating, Denies fever(s), Denies headache(s) and Denies night sweats Eyes Denies dry eyes, Denies irritation and Denies itchy eyes ENT Reports Normal hearing present, Denies headache(s), Denies nasal congestion, Denies nasal discharge, Denies post nasal drip and Denies sore throat Card Denies chest pain, Denies chest pain at rest, Denies chest pain with activity, Denies claudication, Denies leg edema, Denies dyspnea, Denies dyspnea on exertion, Denies orthopnea and Denies paroxysmal nocturnal dyspnea Resp Denies chest congestion, Denies cough, Denies excessive phlegm production, Denies pain on inspiration, Denies pain with cough, Denies dyspnea, Denies dyspnea on exertion, Denies stridor and Denies wheezing Musc Denies myalgias Neuro Reports Normal hearing present and Denies headache(s) Endo Denies excessive sweating Hair/Lymph Denies lymphadenopathy Aller/Immun Denies itchy eyes, Denies seasonal rhinorrhea and Denies wheezing Physical Exam Vital Signs: BMI result Body Mass Index 33.7 Neuro Cranial nerves: Yes Normal hearing present Assessment & Plan Assessment & Plan (1) Foreign body (FB) in soft tissue: Code(s): M79.5 - Residual foreign body in soft tissue Category: Medical Plan: xr left foot to see if small piece of glass persists. 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 She notes stress due to possibility of surgery Start mounjaro. Once received/taking stop januvia. she is hesitant to increase insulin She will continue glucose monitoring and f/up in 6 weeks Plan see above plans Orders: Orders XR foot LT 2V Today M79.5 - Residual foreign body in soft tissue Referrals General Surgery Referral E04.2 - Nontoxic multinodular goiter, R09.A2 - Foreign body sensation, throat, R13.10 - Dysphagia, unspecified Medications: New tirzepatide (Mounjaro) 2.5 mg (0.5 mL) subcut QWEEK 12 weeks 6 mL 3RF Refilled flash glucose sensor (FreeStyle Patti 2 Sensor kit) Once every 14 days 3 ea 11RF E55.9 - Vitamin D deficiency, unspecified Discontinued dapaglifloz propaned-metformin 5-1,000 mg ER (Xigduo XR) Discontinued Reason: Doctor's Order 1 tab PO BID 60 ea 5RF sitagliptin phosphate (Januvia) Discontinued Reason: Doctor's Order 100 mg PO DAILY 30 days 30 tabs 4RF E11.65 - Type 2 diabetes mellitus with hyperglycemia Coding Level of Care Code Consult Moderate 20038 Diagnoses Foreign body (FB) in soft tissue M79.5 Non-toxic multinodular goiter E04.2 Globus sensation R09.A2 Odynophagia R13.10 Diabetic nephropathy associated with type 2 diabetes mellitus E11.21 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
[2023-10-26 13:48] VITALS: BP 128/60; PULSE 84; BMI 33.7
[2023-10-26 14:01] LABS: Glucose, Whole Blood 193 mg/dL (60-115)
== END 2023-10-26 14:37 | disposition home or self-care (01) ==
PROVIDERS: PCP General Practice; Visit Provider Internal Medicine
DX: M79.5 Residual foreign body in soft tissue (principal); E04.2 Nontoxic multinodular goiter; R09.A2 Foreign body sensation, throat; R13.10 Dysphagia, unspecified; E11.21 Type 2 diabetes mellitus with diabetic nephropathy; Z79.4 Long term (current) use of insulin; E11.65 Type 2 diabetes mellitus with hyperglycemia
CPT/HCPCS: 99204

== ENCOUNTER → 2023-10-26 13:46 | Outpatient (BNVA) | payer OTHER, SELFPAY | PROVIDERS: PCP General Practice; Visit Provider Internal Medicine | DX: E11.319 Type 2 diabetes mellitus with unspecified diabetic retinopathy without macular edema (principal); E11.21 Type 2 diabetes mellitus with diabetic nephropathy; E11.40 Type 2 diabetes mellitus with diabetic neuropathy, unspecified; E11.51 Type 2 diabetes mellitus with diabetic peripheral angiopathy without gangrene; E11.65 Type 2 diabetes mellitus with hyperglycemia; E78.5 Hyperlipidemia, unspecified; E06.3 Autoimmune thyroiditis; E55.9 Vitamin D deficiency, unspecified; E04.2 Nontoxic multinodular goiter; Z79.4 Long term (current) use of insulin | CPT/HCPCS: 82947; 99202 ==

== ENCOUNTER 2023-10-27 10:45 | Outpatient (REF) | payer OTHER, SELFPAY ==
--- NOTE | ~2023-10-27 | XR_ITS ---
EXAMINATION: XR FOOT, LEFT CLINICAL INFORMATION: Residual foreign body in soft tissues, patient states no pain in left foot but stepped on glass 2 months ago. COMPARISON: September 22, 2023. TECHNIQUE: AP, lateral, and oblique views of the left foot. FINDINGS: Previously identified tiny density within the fat posterior to the posterior calcaneus is redemonstrated, and differential considerations again include a possible foreign body. Redemonstration of ill-definition of the posterior calcaneus and correlation with clinical exam recommended to determine further management if there is clinical concern for osteomyelitis. Moderate plantar and posterior calcaneal spurs. Moderate degenerative changes in multiple metatarsophalangeal and interphalangeal joints. XR/XR foot LT 2V IMPRESSION: 1. Previously identified tiny density within the fat posterior to the posterior calcaneus is redemonstrated, and differential considerations again include a possible foreign body. 2. Redemonstration of ill-definition of the posterior calcaneus and correlation with clinical exam recommended to determine further management if there is clinical concern for osteomyelitis.
== END 2023-10-27 10:46 | disposition home or self-care (01) ==
LOC: HO.XRAY 10:45
PROVIDERS: PCP General Practice; Visit Provider Internal Medicine
DX: M79.5 Residual foreign body in soft tissue (principal)
CPT/HCPCS: 73620

== ENCOUNTER 2023-11-17 09:39 | Outpatient (REF) | payer OTHER, SELFPAY ==
[2023-11-17 13:35] LABS: Cholesterol 176 mg/dL (<200); HDL Cholesterol 45 mg/dL (>40)
[2023-11-17 13:44] LABS: HIV AB/AG Nonreactive (Nonreactive); HIV Num 1 0.05 S/CO (0.00-0.99); ~HepC Num1 0.07 S/CO (0.00-0.79); ~Hepatitis C Antibody Nonreactive (Nonreactive)
[2023-11-17 13:51] LABS: Creatinine Urine 29.24 mg/dL; Microalbum/Creatinine Ratio Ur 58.1 ug/mg cr (<30)
[2023-11-17 13:58] LABS: LDL Cholesterol Calculated 104 mg/dL (<100); Triglycerides 136 mg/dL (<150)
[2023-11-22 15:52] LABS: Gastrin 767 pg/mL (<=100)
== END 2023-11-17 09:40 | disposition home or self-care (01) ==
LOC: HO.LAB 09:39
PROVIDERS: Internal Medicine Endocrinology, Diabetes & Metabolism; Absent Provider General Practice; PCP General Practice; Visit Provider Internal Medicine Gastroenterology
DX: Z11.3 Encounter for screening for infections with a predominantly sexual mode of transmission (principal); Z11.4 Encounter for screening for human immunodeficiency virus [HIV]; E11.65 Type 2 diabetes mellitus with hyperglycemia; C18.9 Malignant neoplasm of colon, unspecified; K59.09 Other constipation; K21.9 Gastro-esophageal reflux disease without esophagitis; K29.40 Chronic atrophic gastritis without bleeding; R10.11 Right upper quadrant pain; R13.10 Dysphagia, unspecified; R09.A2 Foreign body sensation, throat; Z86.010 Personal history of colon polyps; Z79.4 Long term (current) use of insulin
CPT/HCPCS: 36415; 80061; 82043; 82570; 82941; 86803; 87389

== ENCOUNTER 2023-12-07 06:33 | Day surgery (SDC) | payer OTHER, SELFPAY ==
--- NOTE | 2023-12-06 08:51 | HO.ANESPROP2 ---
Documented by User: Darling Suarez NP 12/06/23 08:55 HPI - Anesthesia Eval Consult details Narrative: 63yo F for Upper Endoscopy and Colonoscopy Eliquis for DVT Hx renal ca s/p cryoablation, Morris ca Anesthesia Pre-Procedure Meds Is the patient on any of the following meds?: GLP1/DPP4 and SGLT2 Inhib PMFSH Active Problems Active Problems: All Active Problems Odynophagia (Acute) Globus sensation (Acute) Foreign body (FB) in soft tissue (Acute) History of colon polyps (Acute) Pulmonary emboli (Acute) Night sweats (Acute) Asthma (Acute) Pulmonary nodule (Acute) Pulmonary emboli (Acute) Elevated gastrin level (Acute) Renal cell cancer (Acute) Dysphagia (Acute) Atrophic gastritis (Acute) Renal cancer (Acute) Abnormal CT scan, kidney (Acute) RUQ abdominal pain (Acute) Degenerative joint disease of right acromioclavicular joint (Acute) Chronic right shoulder pain (Acute) Chest discomfort (Acute) GERD (gastroesophageal reflux disease) (Acute) Current non-adherence to medical treatment (Acute) Chronic constipation (Acute) Hand tendonitis (Acute) Osteoarthritis of right shoulder (Acute) Emanuel's disease (Acute) Distal radius fracture, left (Acute) Hand pain, right (Acute) Non-toxic multinodular goiter (Acute) Diabetic nephropathy associated with type 2 diabetes mellitus (Acute) 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 (Acute) 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) Colon cancer (Acute) Diabetes type 2, uncontrolled (Acute) Vitamin D deficiency (Acute) Past Medical History Medical History Current non-adherence to medical treatment Emanuel's disease Non-toxic multinodular goiter Diabetic nephropathy associated with type 2 diabetes mellitus 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 Cataract Colon cancer (~2010) Diabetes type 2, uncontrolled Vitamin D deficiency Family History Family History Maternal Aunt Esophageal cancer Breast cancer Brother Colon cancer Diabetes Brother Colon cancer Father Diabetes Sister Diabetes Sister Diabetes Family history of problems with anesthesia: No Surgical History Surgical History History of esophagogastroduodenoscopy (EGD) History of kidney surgery H/O colonoscopy Hx of breast reduction, elective H/O total hysterectomy Hx of tonsillectomy History of Problems with Anesthesia: No Social History Social History Household Members: None Housing: Apartment Alcohol intake: never Patient Tobacco Use Status: Never used Tobacco Second Hand Smoke Exposure: No Advance Directives: No Advance Directives Information Provided: Yes Current occupational status: disabled 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 Meds Allergies Allergy/AdvReac Type Severity Reaction Status Date / Time suarez [SUAREZ] Allergy Severe ANAPHYLAXIS Verified 11/21/23 11:02 cucumber Allergy Severe Shortness Verified 11/21/23 11:02 of Breath metoclopramide [From Reglan] Allergy Severe SEIZURE-LIKE Verified 11/21/23 11:02 ACTIVITIES Penicillins Allergy Severe Anaphylaxis Verified 11/21/23 11:02 oxycodone [From PERCOCET] Allergy Mild ITCHING Verified 11/21/23 11:02 rocephin Allergy Itching Uncoded 12/07/23 08:15 Home Medications ?Medication ?Instructions ?Recorded ?Confirmed ?Last Taken ?Type albuterol sulfate 90 mcg/actuation 2 puff inhalation Q4-6H PRN 03/11/20 11/21/23 08/11/21 09:00 History aerosol inhaler (Ventolin HFA) Wheezing lorazepam 1 mg tablet 1 tab PO BID PRN anxiety 03/11/20 11/21/23 Unknown History acetaminophen 300 mg-codeine 30 mg 1 tab PO TID PRN Pain 03/25/20 11/21/23 Unknown History tablet albuterol sulfate 2.5 mg/3 mL 2.5 mg inhalation DAILY 03/25/20 11/21/23 Unknown History (0.083 %) solution for nebulization lisinopril 40 mg tablet 40 mg PO DAILY 03/25/20 11/21/23 08/11/21 09:00 History fluticasone propionate 110 1 puff PO BID 05/14/21 11/21/23 Unknown History mcg/actuation HFA aerosol inhaler (Flovent HFA) fluticasone propionate 50 50 spray intranasal DAILY 07/16/21 11/21/23 Unknown History mcg/actuation nasal spray,suspension insulin lispro protamine-lispro See Rx Instructions subcut BID 03/29/22 11/21/23 Unknown History 100 unit/mL (75-25) subcutaneous pen (Humalog Mix 75-25 KwikPen) dapagliflozin propanediol 10 mg 10 mg PO DAILY 10/03/23 11/21/23 12/02/23 History tablet (Farxiga) Exam Pertinent Lab Results Pertinent Lab Results: Laboratory Tests 11/21/23 10:58 WBC 8.7 Hgb 11.0 L Hct 36.6 L Plt Count 224 Sodium 139 Potassium 4.1 Chloride 105 Carbon Dioxide 24 BUN 11 Creatinine 0.78 Narrative Narrative: EKG 08/2023 Vent. Rate : 076 BPM Atrial Rate : 076 BPM P-R Int : 164 ms QRS Dur : 078 ms QT Int : 390 ms P-R-T Axes : 059 030 026 degrees QTc Int : 438 ms Normal sinus rhythm Normal ECG When compared to the previous EKG of No significant changes seen Assessment and Plan Assessment Anesthesia Assessment: Chart Reviewed Final Anesthetic Review Family History of Problems with Anesthesia: No History of Problems with Anesthesia: No Documented by User: Nathalia Krause MD 12/07/23 08:15 HPI - Anesthesia Eval Anesthesia Pre-Procedure Meds Is the patient on any of the following meds?: GLP1/DPP4 (Tirzepatide- last dose 11/25/23) and SGLT2 Inhib (Dapagliflozin- last dose 12/02/23) PMFSH Active Problems Active Problems: All Active Problems Odynophagia (Acute) Globus sensation (Acute) Foreign body (FB) in soft tissue (Acute) History of colon polyps (Acute) Pulmonary emboli (Acute) Night sweats (Acute) Asthma (Acute)- inhaler only as needed Pulmonary nodule (Acute) Pulmonary emboli (Acute) Elevated gastrin level (Acute) Renal cell cancer (Acute) Dysphagia (Acute) Atrophic gastritis (Acute) Renal cancer (Acute) Abnormal CT scan, kidney (Acute) RUQ abdominal pain (Acute) Degenerative joint disease of right acromioclavicular joint (Acute) Chronic right shoulder pain (Acute) Chest discomfort (Acute) GERD (gastroesophageal reflux disease) (Acute) Current non-adherence to medical treatment (Acute) Chronic constipation (Acute) Hand tendonitis (Acute) Osteoarthritis of right shoulder (Acute) Emanuel's disease (Acute) Distal radius fracture, left (Acute) Hand pain, right (Acute) Non-toxic multinodular goiter (Acute) Diabetic nephropathy associated with type 2 diabetes mellitus (Acute) 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 (Acute) 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) Colon cancer (Acute) Diabetes type 2, uncontrolled (Acute) Vitamin D deficiency (Acute) Pseudotumor cerebri Past Medical History Medical History Current non-adherence to medical treatment Emanuel's disease Non-toxic multinodular goiter Diabetic nephropathy associated with type 2 diabetes mellitus 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 Cataract Colon cancer (~2010) Diabetes type 2, uncontrolled Vitamin D deficiency Family History Family History Maternal Aunt Esophageal cancer Breast cancer Brother Colon cancer Diabetes Brother Colon cancer Father Diabetes Sister Diabetes Sister Diabetes Family history of problems with anesthesia: No Surgical History Surgical History History of esophagogastroduodenoscopy (EGD) History of kidney surgery H/O colonoscopy Hx of breast reduction, elective H/O total hysterectomy Hx of tonsillectomy History of Problems with Anesthesia: No Social History Social History Household Members: None Housing: Apartment Alcohol intake: never Patient Tobacco Use Status: Never used Tobacco Second Hand Smoke Exposure: No Advance Directives: No Advance Directives Information Provided: Yes Current occupational status: disabled 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 Meds Allergies Allergy/AdvReac Type Severity Reaction Status Date / Time suarez [SUAREZ] Allergy Severe ANAPHYLAXIS Verified 11/21/23 11:02 cucumber Allergy Severe Shortness Verified 11/21/23 11:02 of Breath metoclopramide [From Reglan] Allergy Severe SEIZURE-LIKE Verified 11/21/23 11:02 ACTIVITIES Penicillins Allergy Severe Anaphylaxis Verified 11/21/23 11:02 oxycodone [From PERCOCET] Allergy Mild ITCHING Verified 11/21/23 11:02 rocephin Allergy Itching Uncoded 12/07/23 08:15 Home Medications ?Medication ?Instructions ?Recorded ?Confirmed ?Last Taken ?Type albuterol sulfate 90 mcg/actuation 2 puff inhalation Q4-6H PRN 03/11/20 11/21/23 08/11/21 09:00 History aerosol inhaler (Ventolin HFA) Wheezing lorazepam 1 mg tablet 1 tab PO BID PRN anxiety 03/11/20 11/21/23 Unknown History acetaminophen 300 mg-codeine 30 mg 1 tab PO TID PRN Pain 03/25/20 11/21/23 Unknown History tablet albuterol sulfate 2.5 mg/3 mL 2.5 mg inhalation DAILY 03/25/20 11/21/23 Unknown History (0.083 %) solution for nebulization lisinopril 40 mg tablet 40 mg PO DAILY 03/25/20 11/21/23 08/11/21 09:00 History fluticasone propionate 110 1 puff PO BID 05/14/21 11/21/23 Unknown History mcg/actuation HFA aerosol inhaler (Flovent HFA) fluticasone propionate 50 50 spray intranasal DAILY 07/16/21 11/21/23 Unknown History mcg/actuation nasal spray,suspension insulin lispro protamine-lispro See Rx Instructions subcut BID 03/29/22 11/21/23 Unknown History 100 unit/mL (75-25) subcutaneous pen (Humalog Mix 75-25 KwikPen) dapagliflozin propanediol 10 mg 10 mg PO DAILY 10/03/23 11/21/23 12/02/23 History tablet (Farxiga) Exam Height,Weight and Vital Signs: Height 5 ft 1 in Weight 82.214 kg Vital Signs Temp Pulse Resp BP Pulse Ox O2 Del Method 12/07/23 07:28 96.9 F 80 18 160/50 H 100 Room Air Pertinent Lab Results Pertinent Lab Results: Laboratory Tests 11/21/23 10:58 WBC 8.7 Hgb 11.0 L Hct 36.6 L Plt Count 224 Sodium 139 Potassium 4.1 Chloride 105 Carbon Dioxide 24 BUN 11 Creatinine 0.78 POC(patient's monitor) 189 @ 07:00 Airway Mallampati Class: I TM Dist: >3cm Neck ROM: Full Loose/Missing/Broken Teeth: Yes (Molars extracted. Denies broken, loose teeth) Heart: RRR Lungs: CTAB Assessment and Plan Assessment Anesthesia Assessment: Anesthesia Plan Discussed and Chart Reviewed Final Anesthetic Review Family History of Problems with Anesthesia: No History of Problems with Anesthesia: No NPO: Yes ASA Class: III Final Preanesthetic Review: No Changes in Pt Med Stat, Meds/Allgs Chart Reviewed, Consent Obtained/Reviewed and Anes Risks/Benef Reviewed Patient Risk: Intermediate Procedure Risk: Low Assessment/Block/Sedation in SS: Assess/Block/Sedation-SS Anesthetic Plan Anesthetic Plan: TIVA Disposition: Standard PACU
[2023-12-07 07:01] VITALS: BMI 34.2
--- NOTE | 2023-12-07 07:24 | P.HPSUR_ITS ---
Pre-Procedural Eval Section A - 24 Hr Update-Section A only Date of Service: 12/07/23 The patient is an INPATIENT: No The patient has been examined within 24 hours of the surgical procedure. The History & Physical has been completed within 30 days and I have reviewed it.: No Section B - Complete if H&P > 30 days Chief Complaint: Chronic atrophic gastritis without bleeding Details of Present Illness: colon cancer screening, history of colon cancer, GERD, right upper quadrant pain Relevant Family History (Specify if Yes): Yes Relevant Social History: None Present Medications: see Short Stay Collaborative assessment Medical History: Significant History (Cataract Colon cancer (~2010) Current non- adherence to medical treatment Diabetes type 2, uncontrolled Diabetic nephropathy associated with type 2 diabetes mellitus 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 Emanuel's disease 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 Non-toxic multinodular goiter Vitamin D deficiency) History of Previous Operations: Relevant previous surgery/procedure and date(s) (H/O colonoscopy H/O total hysterectomy Hx of breast reduction, elective Hx of tonsillectomy) Allergies: Allergies Allergy/AdvReac Type Severity Reaction Status Date / Time suarez [SUAREZ] Allergy Severe ANAPHYLAXIS Verified 11/21/23 11:02 cucumber Allergy Severe Shortness Verified 11/21/23 11:02 of Breath metoclopramide [From Reglan] Allergy Severe SEIZURE-LIKE Verified 11/21/23 11:02 ACTIVITIES Penicillins Allergy Severe Anaphylaxis Verified 11/21/23 11:02 oxycodone [From PERCOCET] Allergy Mild ITCHING Verified 11/21/23 11:02 Review of Systems Sugical H&P ROS: Negative: Constitution, Cardiovascular and Respiratory and Yes, Specify: Gastrointestinal (diarrhea) Exam Surgical H&P Exam: Normal: Heart, Normal: Lungs, Normal: Extremities and Normal: Abdomen Plan Diagnosis/Plan: Unchanged I have reviewed the history and physical and performed a pertinent physical examination on my patient. No changes have occurred unless specified. Time Spent With Patient Time: Total time managing care of this patient today ____ minutes.
[2023-12-07 07:28] VITALS: BP 160/50; PULSE 80; RESP 18; TEMP 36.1; O2SAT 100
[2023-12-07] MEDS: Lactated Ringers 1,000 ML 100 ML IVCONT (07:30)
--- NOTE | 2023-12-07 08:21 | HO.OPN-COLON ---
Colonoscopy Operative Note Operative Note Date of Service: 12/07/23 Narrative: FLEXIBLE TRANSORAL UPPER GASTROINTESTINAL ENDOSCOPY WITH BIOPSIES AND COLONOSCOPY TILL CECUM WITH BIOPSIES, SNARE POLYPECTOMY AND HEMOCLIP PLACEMENT Pre-op diagnosis: Surveillance of colon polyps, follow-up of gastric intestinal metaplasia Post-op diagnosis: GERD, Gastritis, Colon Polyps, Diverticulosis, hemorrhoids Endoscopist:? Rainer Min MD Anesthesia:?MAC COLONOSCOPY PROCEDURE NOTE Instrument: Olympus PCF H 190 L variable stiffness pediatric colonoscope Monitoring: Vital signs and clinical assessment, intermittent blood pressure monitoring, continuous EKG monitoring, Pulse oximetry and Carbon Dioxide monitoring were done throughout the procedure. Please see anesthesia flowsheet. Colon withdrawl time was 23 minutes. Procedure: The patient was placed in the left lateral decubitis position and pre-procedure medications were administered. After a digital rectal examination of the ano-rectum, the video colonoscope was inserted into the rectum and advanced through the colon to the cecum. The colonoscope was slowly withdrawn in a retrograde panoramic fashion and the colon mucosa was carefully examined including a retroflexed view of the rectum. Findings and interventions are described below. Procedure Difficulty: without difficulty Findings: Terminal Ileum: Not evaluated Cecum: A 2-3 mm sessile polyp - removed with a cold bx Ascending Colon: Polypectomy site visualized in the mid AC without recurrent/residual polyp Transverse Colon: A 5-6 mm sessile polyp in the distal TC - removed with a cold snare. 12-15 mm sessile polyp at 40 cms removed with a hot snare and polypectomy site closed with one hemoclip. Descending Colon: Moderate diverticulosis Sigmoid Colon: Moderate diverticulosis Rectum: Normal Ano-rectum: Moderate internal hemorrhoids Colon preparation: Good after copious irrigation. [place] Bowel Preparation Scale Right colon; 2 Transverse colon: 2 Left colon; 2 (0 = Unprepared colon segment with mucosa not seen due to solid stool that cannot be cleared. 1 = Portion of mucosa of the colon segment seen, but other areas of the colon segment not well seen due to staining, residual stool and/or opaque liquid. 2 = Minor amount of residual staining, small fragments of stool and/or opaque liquid, but mucosa of colon segment seen well. 3 = Entire mucosa of colon segment seen well with no residual staining, small fragments of stool or opaque liquid) UPPER ENDOSCOPY Consent: Indications for the procedure and potential complications of bleeding, perforation, reaction to medications and missed diagnosis were discussed with the patient and informed consent was obtained. Instrument: Olympus GIF H 190 mid size upper endoscope Monitoring: Vital signs and clinical assessment, continuous EKG monitoring, Pulse oximetry, Carbon Dioxide monitoring and blood pressure monitoring were done throughout the procedure. Procedure: The patient was placed in the left lateral decubitis position and pre-procedure medications were administered and a bite block was placed. The endoscope was inserted into the mouth and advanced under direct vision to the third part of duodenum. A careful inspection was made as the upper endoscope was withdrawn including a retroflexed examination of the proximal stomach; Findings and interventions are described below. Findings: Larynx: Normal Esophagus: A 1 cms benign appearing nodule in the distal esophagus at 30 cms - benign on biopsies obtained during past EGD and no change in size) .? GE junction at 35 cms. No esophagitis or Rick?s. Stomach: Moderate diffuse gastric erythema with nodular and varigated appearing gastric mucosa in the body of the stomach. Mapping biopsies were obtained from gastric antrum and body. Grade 2 flap valve on retroflexed examination of the cardia. Duodenum: Normal bulb and descending duodenum. Intervention: Biopsies as noted above Impression and Post Procedure Diagnosis: Colonoscopy Findings: Two small and one medium sized polyps were removed Moderate diverticulosis seen in the left colon Moderate hemorrhoids on retroflexed exam. Endoscopy Findings: ESOPHAGUS: benign esophageal nodule - no change from past EGD STOMACH: Nodular gastritis - mapping biopsies were obtained to follow up on gastric intestinal metaplasia Plan: Pt has a FU appointment on 12/16/[address] Min Repeat EGD (FU of gastric intestinal metaplasia) and Colonoscopy in 3 years if polyps are adenomatous and 5 years if polyps are hyperplastic. Above findings were reviewed with the patient and relevant handouts were given and the discharge area. BIOPSIES SHOWED: A. Cecum, polypectomy: Colonic mucosa with mild surface hyperplastic changes and small lymphoid aggregate. B. Colon, transverse, polypectomy: Fragments of tubular adenoma; negative for high-grade dysplasia or carcinoma. C. Stomach, antrum lesser curvature, biopsy: Antral-type mucosa with mild chronic inactive inflammation and intestinal metaplasia; negative for dysplasia; no Helicobacter organisms seen. D. Stomach, antrum greater curvature, biopsy: Antral-type mucosa with mild chronic inactive inflammation; no intestinal metaplasia identified; no Helicobacter organisms seen. E. Stomach, incisura, biopsy: Antral-type mucosa with mild chronic inactive inflammation; no intestinal metaplasia identified; no Helicobacter organisms seen. F. Stomach, body lesser curvature, biopsy: Chronic atrophic gastritis with intestinal metaplasia and reactive appearing lymphoid aggregates; negative for dysplasia; no Helicobacter organisms identified. G. Stomach, body greater curvature, biopsy: Superficial fragment of gastric mucosa with moderate chronic inactive inflammation; no intestinal metaplasia identified; no Helicobacter organism seen Letter sent with biopsy results and patient placed on recall list for EGD and colon
[2023-12-07 08:48] VITALS: BP 106/54; PULSE 75; RESP 18; TEMP 36.3; O2SAT 100
[2023-12-07 09:03] VITALS: BP 107/53; PULSE 76; RESP 16; TEMP 36.8; O2SAT 98
[2023-12-07 09:18] VITALS: BP 139/63; PULSE 76; RESP 16; TEMP 36.8; O2SAT 99
== END 2023-12-07 10:03 | disposition home or self-care (01) ==
PROVIDERS: PCP General Practice; Visit Provider Internal Medicine Gastroenterology
PROC: (CPT 45385; principal; 2023-12-07 07:30)
DX: Z12.11 Encounter for screening for malignant neoplasm of colon (principal); Z85.038 Personal history of other malignant neoplasm of large intestine; Z86.010 Personal history of colon polyps; K59.09 Other constipation; D12.3 Benign neoplasm of transverse colon; K63.5 Polyp of colon; K57.30 Diverticulosis of large intestine without perforation or abscess without bleeding; K64.8 Other hemorrhoids; K29.40 Chronic atrophic gastritis without bleeding; K31.A0 Gastric intestinal metaplasia, unspecified; K21.9 Gastro-esophageal reflux disease without esophagitis; K22.9 Disease of esophagus, unspecified; I10 Essential (primary) hypertension; E78.00 Pure hypercholesterolemia, unspecified; E11.21 Type 2 diabetes mellitus with diabetic nephropathy; E16.4 Increased secretion of gastrin; E06.3 Autoimmune thyroiditis; E04.2 Nontoxic multinodular goiter; E55.9 Vitamin D deficiency, unspecified; D64.9 Anemia, unspecified; J45.909 Unspecified asthma, uncomplicated; E66.01 Morbid (severe) obesity due to excess calories; Z68.33 Body mass index [BMI] 33.0-33.9, adult; Z79.4 Long term (current) use of insulin; Z79.01 Long term (current) use of anticoagulants; Z79.51 Long term (current) use of inhaled steroids; Z79.899 Other long term (current) drug therapy; Z91.199 Patient's noncompliance with other medical treatment and regimen due to unspecified reason; Z79.1 Long term (current) use of non-steroidal anti-inflammatories (NSAID); Z88.0 Allergy status to penicillin; Z88.5 Allergy status to narcotic agent; Z88.8 Allergy status to other drugs, medicaments and biological substances; Z98.890 Other specified postprocedural states; Z87.442 Personal history of urinary calculi
CPT/HCPCS: 45385; 45380; 43239; 88305; 88313; 88342; J1596; J2371; J2704; J3010

== ENCOUNTER → 2023-12-07 06:33 | Outpatient (BNV) | payer OTHER, SELFPAY | PROVIDERS: PCP General Practice; Visit Provider Internal Medicine Gastroenterology | DX: Z12.11 Encounter for screening for malignant neoplasm of colon (principal); Z86.010 Personal history of colon polyps; D12.3 Benign neoplasm of transverse colon; K63.5 Polyp of colon; K57.90 Diverticulosis of intestine, part unspecified, without perforation or abscess without bleeding; K64.8 Other hemorrhoids; K29.70 Gastritis, unspecified, without bleeding; K21.9 Gastro-esophageal reflux disease without esophagitis | CPT/HCPCS: 43239; 45380; 45385 ==

== ENCOUNTER 2023-12-14 14:56 | Outpatient (AMB) | payer OTHER, SELFPAY ==
--- NOTE | 2023-12-14 15:20 | A.OFFVIS_ITS ---
Vital Signs 12/14/23 15:21 Height 5 ft 1 in Weight 180 lb 12.465 oz BMI 34.2 BP 128/74 Blood Pressure Location Rt brachial Position Sitting Pulse 57 Pulse Source Pulse Oximeter Intake Visit Reasons: T2DM/CONFIRMED Intake Note: Patient present today for a follow up on Type 2 Diabetes Mellitus. Last Diabetic Eye exam: August 2023 Last Podiatry Visit: Does not see a Director Of Diversity And Inclusion Random Glucose: 145 mg/dL, Today Most recent HgA1C: 8.3% 10/05/2023. Health Workers Required: Yes Health Workers Language: Citizen Of [place] Accompanied by: Self / Same As Patient Allergies leal [LEAL] Allergy (Severe, Verified 12/16/23 09:28) ANAPHYLAXIS cucumber Allergy (Severe, Verified 12/16/23 09:28) Shortness of Breath metoclopramide [From Reglan] Allergy (Severe, Verified 12/16/23 09:28) SEIZURE-LIKE ACTIVITIES Penicillins Allergy (Severe, Verified 12/16/23 09:28) Anaphylaxis oxycodone [From PERCOCET] Allergy (Mild, Verified 12/16/23 09:28) ITCHING rocephin Allergy (Uncoded 12/14/23 15:22) Itching Medication List - Last Reconciled 12/20/23 by Ayanna Isbell MD acetaminophen-codeine 300-30 mg 1 tab PO TID PRN albuterol sulfate 90 mcg/actuation (Ventolin HFA) 2 puffs inhalation Q4-6H PRN albuterol sulfate 2.5 mg inhalation DAILY apixaban (Eliquis DVT-PE Treat 30D Start) 5 mg PO BID arm brace (Wrist Brace) comfort form wrist/thumb RT S blood sugar diagnostic (FreeStyle Lite Strips) 1 strip miscellaneous QID cholecalciferol (vitamin D3) 50 mcg PO DAILY esomeprazole magnesium 20 mg PO DAILY flash glucose sensor (FreeStyle Patti 2 Sensor kit) Once every 14 days fluticasone propionate 110 mcg/actuation (Flovent HFA) 1 puff PO BID fluticasone propionate 50 mcg/actuation 50 sprays intranasal DAILY fluticasone propionate 110 mcg/actuation 1 puff inhalation BID FreeStyle Patti 2 [place] (flash glucose scanning reader) As directed NS insulin lispro protamin-lispro 100 unit/mL (75-25) (Humalog Mix 75-25 KwikPen) 26 units before breakfast and 14 units before dinner subcut 2 times a day; lancets (FreeStyle Lancets) As directed lisinopril 40 mg PO DAILY lorazepam 1 tab PO BID PRN naproxen 500 mg PO BID PRN 10 days pen needle, diabetic (BD Meg 2nd Gen Pen Needle) 2 times a day pioglitazone 30 mg PO DAILY rosuvastatin 10 mg PO DAILY sitagliptin phosphate (Januvia) 100 mg PO DAILY HPI Comments Details: Patient 63-year-old female with DM type 2 diagnosed 1995 who presents for management of diabetes and multinodular goiter. Past medical history: Diabetes type 2, dyslipidemia, hypertension, Emanuel's disease, nontoxic multinodular goiter, vitamin-D deficiency, colon cancer 1. Diabetes Last seen 10/05/23 A1C 8.3% Reports uses rosuvastatin twice a week due to myalgia. Past medical history: Diabetes type 2, dyslipidemia, hypertension, Emanuel's disease, nontoxic multinodular goiter, vitamin-D deficiency, colon cancer Micro and macrovascular complications: retinopathy, nephropathy, neuropathy, CVA, CAD, PVD Diabetes medications: Humalog mix 75/25 breakfast and dinner. Wants to restart Januvia. Did not tolerate mounjaro Not taking Farxiga 10mg QD Lyumjev causes swelling and pain at injection site. Has patti 2 would not work for download today, has not been working. Just restarted using due to need for sensors. BG 125-280, 125-230 fasting Symptoms reported: denies numbness, tingling, cramping in lower extremities Hypoglycemia:Hyperglycemia: + urinary frequency, occasional nocturia, some days polydypsia Denies hypoglycemia Diet: Breakfast: oatmeal, Lunch: mostly skips. Dinner: soup. Snack: occasional crackers at 3 pm. . Exercise: walks at the mall Nutrition - DSME: in past Podiatry: yes (ortho/foot) Dental Exam: long time ago Eye Exam: UTD laser surgery 2. Thyroid u/s ordered by Dr Chacko . Referred to Dr Patel. Scheduled in Dec but is planning to move to [place] beginning of december. She is endorsing worsening globus, odynophagia for the past few months ROS CONSTITUTIONAL: Denies weight loss, fever and chills. HEENT: Denies changes in vision and hearing. RESPIRATORY: Denies SOB and cough. CV: Denies palpitations and CP GI: Denies abdominal pain, nausea, vomiting and diarrhea. : Denies dysuria and urinary frequency. MSK: Denies new myalgia and joint pain. SKIN: Denies rash and pruritus. NEUROLOGICAL: Denies headache PSYCHIATRIC: Denies recent changes in mood. PHYSICAL EXAM: GENERAL: Alert and oriented x 3. NAD EYES: EOMI. Anicteric. HENT: Moist mucous membranes. No scleral icterus. No cervical lymphadenopathy. LUNGS: Clear to auscultation bilaterally. CARDIOVASCULAR: Regular rate and rhythm. No murmur. No JVD. ABDOMEN: Soft, non-tender +bs EXTREMITIES: No edema. Non-tender. SKIN: No rashes or lesions. Warm. NEUROLOGIC: No focal neurological deficits. CN II-XII grossly intact PSYCHIATRIC: Cooperative. Appropriate mood and affect [facility] Medical History Current non-adherence to medical treatment Emanuel's disease Non-toxic multinodular goiter Diabetic nephropathy associated with type 2 diabetes mellitus 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 Hypertension longterm (current) use of insulin Cataract Colon cancer (~2010) Diabetes type 2, uncontrolled Vitamin D deficiency Surgical History History of esophagogastroduodenoscopy (EGD) History of kidney surgery H/O colonoscopy Hx of breast reduction, elective H/O total hysterectomy Hx of tonsillectomy Family History Maternal Aunt Esophageal cancer Breast cancer Brother Colon cancer Diabetes Brother Colon cancer Father Diabetes Sister Diabetes Sister Diabetes Social History Household Members: None Housing: Apartment Alcohol intake: never Patient Tobacco Use Status: Never used Tobacco Second Hand Smoke Exposure: No Current occupational status: disabled 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 Patient needs improved glycemic control Continue insulin (2) 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: Code(s): E78.5 - Hyperlipidemia, unspecified Category: Medical Plan: continue statin as tolerated (3) Diabetic nephropathy associated with type 2 diabetes mellitus: Code(s): E11.21 - Type 2 diabetes mellitus with diabetic nephropathy Category: Medical Plan: Follows with urology. Tight glycemic control given nephropathy Medications: New pioglitazone 30 mg PO DAILY 90 tabs 3RF sitagliptin phosphate (Januvia) 100 mg PO DAILY 90 tabs 3RF Changed From flash glucose scanning reader As directed 1 ea 0RF E11.21 - Type 2 diabetes mellitus with diabetic nephropathy, E11.65 - Type 2 diabetes mellitus with hyperglycemia To FreeStyle Patti 2 [place] (flash glucose scanning reader) As directed 1 ea 0RF NS E11.21 - Type 2 diabetes mellitus with diabetic nephropathy, E11.65 - Type 2 diabetes mellitus with hyperglycemia Refilled flash glucose sensor (FreeStyle Patti 2 Sensor kit) Once every 14 days 6 ea 3RF E55.9 - Vitamin D deficiency, unspecified pen needle, diabetic (BD Meg 2nd Gen Pen Needle) 2 times a day 100 ea 11RF E11.65 - Type 2 diabetes mellitus with hyperglycemia Discontinued tirzepatide Discontinued Reason: Duplicate 2.5 mg (0.5 mL) subcut QWEEK 12 weeks 6 mL 3RF Coding Level of Care Code Est Pt Level 5 (48215) Diagnoses Uncontrolled type 2 diabetes mellitus with hyperglycemia E11.65 Glycemic state: with hyperglycemia 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 E78.5 Diabetic nephropathy associated with type 2 diabetes mellitus E11.21
[2023-12-14 15:21] VITALS: BP 128/74; PULSE 57; BMI 34.2
[2023-12-14 15:38] LABS: Glucose, Whole Blood 145 mg/dL (60-115)
== END 2023-12-14 16:10 | disposition home or self-care (01) ==
PROVIDERS: Visit Provider Internal Medicine
DX: E11.65 Type 2 diabetes mellitus with hyperglycemia (principal); E11.21 Type 2 diabetes mellitus with diabetic nephropathy; E78.5 Hyperlipidemia, unspecified
CPT/HCPCS: 99214

== ENCOUNTER → 2023-12-14 14:56 | Outpatient (BNVA) | payer OTHER, SELFPAY | PROVIDERS: Visit Provider Internal Medicine | DX: E11.65 Type 2 diabetes mellitus with hyperglycemia (principal); E11.21 Type 2 diabetes mellitus with diabetic nephropathy; E78.5 Hyperlipidemia, unspecified; E55.9 Vitamin D deficiency, unspecified | CPT/HCPCS: 82947; 99212 ==

== ENCOUNTER → 2023-12-16 09:27 | Outpatient (BNVA) | payer OTHER, SELFPAY | PROVIDERS: Visit Provider Internal Medicine Gastroenterology ==

== ENCOUNTER 2023-12-20 10:48 | Outpatient (AMB) | payer OTHER, SELFPAY ==
--- NOTE | 2023-12-20 11:45 | MHC.OFFVIS ---
Intake Visit Reasons: Follow up/ moving out of state Intake Note: Patient is present for Renal Ca Follow up Patient will be moving to [facility] at the end of this month Respiratory Coordinator Required: Yes Respiratory Coordinator Language: [place]i Allergies leal [LEAL] Allergy (Severe, Verified 12/16/23 09:28) ANAPHYLAXIS cucumber Allergy (Severe, Verified 12/16/23 09:28) Shortness of Breath metoclopramide [From Reglan] Allergy (Severe, Verified 12/16/23 09:28) SEIZURE-LIKE ACTIVITIES Penicillins Allergy (Severe, Verified 12/16/23 09:28) Anaphylaxis oxycodone [From PERCOCET] Allergy (Mild, Verified 12/16/23 09:28) ITCHING rocephin Allergy (Uncoded 12/14/23 15:22) Itching HPI Comments Details: Claudia is a pleasant female. [place]i speaker. She is a patient of Dr. Carrillo. She is seen for following urologic conditions - renal cancer - cryotherapy Six-month follow-up Ultrasound stable scarring from cryotherapy Twelve month MRI performed which showed scarring right kidney Current imaging normal Plan annual imaging per [facility]CC[facility] renal ablation follow-up guidelines Would need 5 year follow-up MRI Moving to [place]. Will contact us to move records. Renal mass cryotherapy performed July 2021 Probable right renal lower pole 1.4 cm mass detected incidentally Evaluation for prior colon cancer Imaging - 05/23 right lower pole 1.4 cm exophytic mass suspicious for renal cancer - 12/21 CT right lower pole 1.5 cm scarring from prior cryotherapy - 06/24 renal ultrasound right lower pole scarring, left side small cyst - 12/22 MRI scarring prior cryotherapy right lower pole - 06/25 renal ultrasound right lower pole scarring - 10/23 CT right renal scarring from cryotherapy Laboratory investigations - 12/21 Cr 0.8 Cryotherapy July 2021 single needle 2 cycle Pathology Clear cell carcinoma Samm grade 2 PFSH Medical History Current non-adherence to medical treatment Emanuel's disease Non-toxic multinodular goiter Diabetic nephropathy associated with type 2 diabetes mellitus 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 Hypertension skilled nursing (current) use of insulin Cataract Colon cancer (~2010) Diabetes type 2, uncontrolled Vitamin D deficiency Surgical History (Updated 12/16/23 @ 09:30 by Huong Bernal) History of esophagogastroduodenoscopy (EGD) History of kidney surgery H/O colonoscopy Hx of breast reduction, elective H/O total hysterectomy Hx of tonsillectomy Family History Maternal Aunt Esophageal cancer Breast cancer Brother Colon cancer Diabetes Brother Colon cancer Father Diabetes Sister Diabetes Sister Diabetes Social History Household Members: None Housing: Apartment Alcohol intake: never Patient Tobacco Use Status: Never used Tobacco Second Hand Smoke Exposure: No Current occupational status: disabled 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 Review of Systems Const Denies chills and Denies fever(s) Card Reports no additional complaints and Denies syncope Resp Denies cough GI Denies abdominal pain and Denies heartburn Reports as per HPI and Denies change in libido Neuro Denies syncope Psych Denies change in libido Endo Denies change in libido Physical Exam Const General: cooperative, healthy appearing, comfortable and no acute distress Orientation/consciousness: patient oriented x3 HEENT Face and sinus: Yes normal facial exam Mouth: moist mucous membranes Neck Neck: Yes normal visual inspection, Yes full ROM and Yes trachea midline Chest Chest palpation & inspection: normal inspection of the chest Resp Effort & Inspection: normal respiratory effort, able to speak in complete sentences and no respiratory distress GI Inspection: Yes normal to inspection Back/Spine/Pelvis Cervical Spine: normal cervical lordosis Thoracic/Lumbar Spine: thoracic and lumbar spine normal to inspection Skin General skin exam: no rashes or lesions noted Neuro General: patient oriented x3, gait normal, tone normal and moves all extremities Extrem General: Yes normal to inspection and Yes capillary refill normal Assessment & Plan Assessment & Plan (1) Renal cell cancer: Comment: 08/21 Right cryotherapy [place] 1 Code(s): C64.9 - Malignant neoplasm of unspecified kidney, except renal pelvis Category: Medical Plan Follow-up with imaging in [place] Patient Instructions: Imaging studies, laboratory and physical exam results were discussed and reviewed in detail. No major barriers to patient understanding were identified. An opportunity to ask questions regarding the treatment plan was provided. All questions were answered. The patient expressed understanding and agreement with the above treatment plan. The patient is aware they should contact our office by phone for worsening of their current condition or the appearance of new urologic symptoms. Compliance is encouraged with any medications and followup testing that is ordered. It is a privilege to participate in the urologic care of your patient. If you have any questions or concerns regarding treatment for the above conditions, or other urologic issues, please do not hesitate to contact me. The office telephone contact is [phone]. This note is constructed using voice recognition software. While every effort has been made to ensure accuracy oracle erp architect errors may have been included. Yours sincerely, Dr Taras Chavez MD, [facility] - Urology Providers of Expert, Compassionate Care for the Genitourinary System Coding Level of Care Code Est Pt Level 3 (18956) Diagnoses Renal cell cancer C64.9
== END 2023-12-20 12:13 | disposition home or self-care (01) ==
PROVIDERS: PCP General Practice; Visit Provider Urology
DX: C64.9 Malignant neoplasm of unspecified kidney, except renal pelvis (principal)
CPT/HCPCS: 99213

== ENCOUNTER → 2023-12-20 10:48 | Outpatient (BNVA) | payer OTHER, SELFPAY | PROVIDERS: PCP General Practice; Visit Provider Urology | DX: C64.9 Malignant neoplasm of unspecified kidney, except renal pelvis (principal) | CPT/HCPCS: 99212 ==